=== PATIENT | female | born 1965 | race Caucasian/White ===

== ENCOUNTER 2017-11-27 18:34 | Inpatient (IN) | END 2017-11-28 11:39 | disposition home or self-care (01) | DRG 313 ==

== ENCOUNTER 2018-06-14 12:29 | Emergency (ER) | END 2018-06-14 18:11 | disposition home or self-care (01) ==

== ENCOUNTER 2018-06-28 18:05 | Emergency (ER) | payer OTHER ==
[~2018-06-28] VITALS: Ht 152.4 cm; Wt 52.3 kg
[~2018-06-28 18:05] MED LIST: AMLO5TAB4 PO; CLOP75TA27 PO; HYDR-3670 PO; INSU100I33 SC; NITR-58 PO; PANT40TA4 PO
[2018-06-28 18:23] VITALS: Ht 152.4 cm; Wt 52.3 kg
[2018-06-28] MEDS ORDERED: ONDANSETRON 4 MG INJ IV STA (21:41)
[2018-06-28] MEDS ORDERED: morphine 4 MG/ML VIAL IV STA (21:41)
[2018-06-28] MEDS ORDERED: KETOROLAC 30 MG INJ IV STA (21:58)
[2018-06-28] MEDS ORDERED: IBUP-1542 PO (22:40)
--- NOTE | 2018-06-28 22:44 | ERD ---
ER Documentation Chief Complaint Chief Complaint sob, difficulty breathing started last night HPI Patient is a 53-year-old female with stroke, hypertension, and diabetes who presents not feeling well. She has chest pain and hot flashes per the family. She is having shortness of breath. They are not sure if she had a fever at home as they did not check her temperature. She had elevated blood pressure. The symptoms started yesterday. The pain comes and goes. Upon review of old medical records this is the patient's third visit to the ER since November 27, 2017 and she did get admitted on that visit for chest pain and had a workup done. ROS All systems reviewed and are negative except as per history of present illness. Medications Home Meds Active Scripts Ibuprofen* (Motrin*) 600 Mg Tab, 600 MG PO Q6H PRN for PAIN AND OR ELEVATED TEMP, #30 TAB Prov:TEZ SALCEDO MD 06/28/18 Reported Medications Clopidogrel Bisulfate (Clopidogrel) 75 Mg Tablet, 75 MG PO DAILY, #30 TAB 11/27/17 Hydralazine Hcl* (Hydralazine Hcl*) 10 Mg Tablet, 10 MG PO DAILY, #60 TAB 11/27/17 Pantoprazole* (Pantoprazole*) 40 Mg Tablet.dr, 40 MG PO AC BREAKFAST, TAB 11/27/17 Amlodipine Besylate* (Norvasc*) 5 Mg Tablet, 5 MG PO DAILY, TAB 11/27/17 Insulin Glargine,Hum.rec.anlog (Basaglar Kwikpen U-100) 100 Unit/1 Ml Insuln.pen, 6 UNIT SC QHS, EA 11/27/17 Discontinued Scripts Nitrofurantoin Monohyd Macrocr* (Macrobid*) 100 Mg Capsr, 100 MG PO HS for 7 Days, CAP Prov:RENATA ROBERTS MD 06/14/18 Allergies Allergies: Coded Allergies: No Known Allergy (Unverified , 06/28/18) PMhx/Soc History of Surgery: Yes (EVACUATION WITH CRANIOTOMY) Hx Neurological Disorder: Yes (CVA) Hx Cardiac Disorders: Yes (HTN) Hx Psychiatric Problems: No Hx Miscellaneous Medical Probl: Yes (CVA LEFT SIDED DEFICIT ) Hx Alcohol Use: No Hx Substance Use: No Hx Tobacco Use: No Smoking Status: Never smoker FmHx Family History: diabetes Physical Exam Vitals Vital Signs Date Temp Pulse Resp B/P (MAP) Pulse Ox O2 O2 Flow FiO2 Time Delivery Rate 06/28/18 93 17 134/96 99 Room Air 23:00 (109) 06/28/18 98.8 90 18 171/100 98 18:23 (123) Physical Exam Const: Tearful Head: Atraumatic Eyes: Normal Conjunctiva ENT: Normal External Ears, Nose and Mouth. Neck: Full range of motion. No meningismus. Resp: Clear to auscultation bilaterally Cardio: Regular rate and rhythm, no murmurs Abd: Soft, non tender, non distended. Normal bowel sounds Skin: No petechiae or rashes Back: No midline or flank tenderness Ext: No cyanosis, or edema Neur: Awake and alert, weakness of the left upper extremity from previous stroke Psych: Depressed affect Result Diagram: 06/28/18219906/28/182199 Results 24 hrs Laboratory Tests Test 06/28/18 22:00 White Blood Count 4.2 10^3/ul Red Blood Count 4.66 10^6/ul Hemoglobin 13.3 g/dl Hematocrit 39.0 % Mean Corpuscular Volume 83.7 fl Mean Corpuscular Hemoglobin 28.5 pg Mean Corpuscular Hemoglobin Concent 34.1 g/dl Red Cell Distribution Width 12.4 % Platelet Count 216 10^3/UL Mean Platelet Volume 9.3 fl Immature Granulocytes % 0.000 % Neutrophils % 55.4 % Lymphocytes % 33.7 % Monocytes % 7.8 % Eosinophils % 2.6 % Basophils % 0.5 % Nucleated Red Blood Cells % 0.0 /100WBC Immature Granulocytes # 0.000 10^3/ul Neutrophils # 2.4 10^3/ul Lymphocytes # 1.4 10^3/ul Monocytes # 0.3 10^3/ul Eosinophils # 0.1 10^3/ul Basophils # 0.0 10^3/ul Nucleated Red Blood Cells # 0.0 10^3/ul Sodium Level 142 mmol/L Potassium Level 4.6 mmol/L Chloride Level 102 mmol/L Carbon Dioxide Level 27 mmol/L Anion Gap 13 Blood Urea Nitrogen 21 mg/dl Creatinine 0.62 mg/dl Est Glomerular Filtrat Rate mL/min > 60 mL/min Glucose Level 130 mg/dl Calcium Level 10.0 mg/dl Troponin I < 0.012 ng/ml Current Medications Medications Dose Sig/Colton Start Time Status Last (Trade) Ordered Route PRN Stop Time Admin Dose Reason Admin Morphine 4 mg ONCE STAT 06/28/18 DC Sulfate IV 21:41 06/28/18 (morphine) 21:58 Ondansetron 4 mg ONCE STAT 06/28/18 DC 06/28/18 HCl (Zofran IV 21:41 06/28/18 22:03 Inj) 21:42 Ketorolac 30 mg ONCE STAT 06/28/18 DC 06/28/18 Tromethamine IV 21:58 06/28/18 22:03 (Toradol) 21:59 Procedures/MDM EKG read by me: Rate/Rhythm: Regular rate and rhythm at a rate of 94 Intervals: Normal Impression: No evidence of ischemia or arrhythmia Chest X-ray 1V Interpreted by me: Soft Tissue: No acute abnormalities Bones: No acute abnormalities Mediastinum/Cardiac Silhouette/Lungs: No acute abnormalities Patient is a 53-year-old female who presents with chest pain and shortness of breath. Troponin is negative. EKG is normal. Chest x-ray is normal. At this point I doubt acute coronary syndrome, pneumonia, pneumothorax, pulmonary embolism, or aortic dissection. I believe outpatient management is appropriate but the patient will need close follow-up with her primary doctor within 24-48 hours for reevaluation. She can return sooner for any worsening symptoms. She was admitted and had a cardiac workup within the last 6 months. Departure Diagnosis: Primary Impression: Shortness of breath Additional Impression: Chest pain Chest pain type: unspecified Qualified Codes: R07.9 - Chest pain, unspecified Condition: Fair Patient Instructions: Dyspnea Referrals: Your doctor Additional Instructions: Llame al doctor MAANA y jimbo sierra MOIRA PARA DENTRO DE 1-2 GONZALEZ.Dgale a la secretaria que nosotros le instruimos hacer esta moira.Avise o llame si torres condicin se empeora antes de la moira. Regresa aqui si peor o no mejor. TEZ SALCEDO MD Jun 28, 2018 22:44
[2018-06-28 23:00] VITALS: BP 134/96; PULSE 93; RESP 17
== END 2018-06-28 23:49 | disposition home or self-care (01) ==
LOC: E/R 18:05
DX: R06.02 Shortness of breath (principal); R07.9 Chest pain, unspecified; I10 Essential (primary) hypertension; E11.9 Type 2 diabetes mellitus without complications; Z79.01 Long term (current) use of anticoagulants; Z79.4 Long term (current) use of insulin; Z86.73 Personal history of transient ischemic attack (TIA), and cerebral infarction without residual deficits
CPT/HCPCS: 36415; 71045; 80048; 84484; 85025; 93005; 96374; 96375; J1885; J2405; Z7502

== ENCOUNTER 2018-11-06 00:32 | Inpatient (IN) | payer OTHER ==
[~2018-11-06] VITALS: Ht 149.9 cm; Wt 55.4 kg
[~2018-11-06 00:32] MED LIST changes: +IBUP-1542 PO; -NITR-58 PO
[2018-11-06] MEDS ORDERED: HYDROCODONE/APAP (5/325) TAB PO ONE (01:30)
[2018-11-06] MEDS ORDERED: morphine 4 MG/ML VIAL IV STA (03:38)
[2018-11-06] MEDS ORDERED: ONDANSETRON 4 MG INJ IV STA (03:38)
--- NOTE | 2018-11-06 03:54 | ERD ---
ER Documentation Chief Complaint Chief Complaint L hip pain r/t fall,no deformity noted,took Tylenol at home at 2200 HPI Is a very pleasant 53 female suffered left hip pain status post fall from her wheelchair. No head trauma. No loss of consciousness. She took Tylenol at home for pain relief. No fevers or chills. No other current issues. Pain is mild ROS All systems reviewed and are negative except as per history of present illness. Medications Home Meds Active Scripts Ibuprofen* (Motrin*) 600 Mg Tab, 600 MG PO Q6H PRN for PAIN AND OR ELEVATED TEMP, #30 TAB Prov:TEZ SALCEDO MD 06/28/18 Reported Medications Clopidogrel Bisulfate (Clopidogrel) 75 Mg Tablet, 75 MG PO DAILY, #30 TAB 11/27/17 Hydralazine Hcl* (Hydralazine Hcl*) 10 Mg Tablet, 10 MG PO DAILY, #60 TAB 11/27/17 Pantoprazole* (Pantoprazole*) 40 Mg Tablet.dr, 40 MG PO AC BREAKFAST, TAB 11/27/17 Amlodipine Besylate* (Norvasc*) 5 Mg Tablet, 5 MG PO DAILY, TAB 11/27/17 Insulin Glargine,Hum.rec.anlog (Basaglar Kwikpen U-100) 100 Unit/1 Ml Insuln.pen, 6 UNIT SC QHS, EA 11/27/17 Allergies Allergies: Coded Allergies: No Known Allergy (Unverified , 06/28/18) PMhx/Soc History of Surgery: Yes (EVACUATION WITH CRANIOTOMY) Anesthesia Reaction: No Hx Neurological Disorder: Yes (CVA) Hx Respiratory Disorders: No Hx Cardiac Disorders: Yes (HTN) Hx Psychiatric Problems: No Hx Miscellaneous Medical Probl: Yes (CVA LEFT SIDED DEFICIT, DM ) Hx Alcohol Use: No Hx Substance Use: No Hx Tobacco Use: No Smoking Status: Never smoker Physical Exam Vitals Vital Signs Date Temp Pulse Resp B/P (MAP) Pulse Ox O2 O2 Flow FiO2 Time Delivery Rate 11/06/18 98.5 87 18 157/87 98 00:43 (110) Physical Exam Const: No acute distress Head: Atraumatic Eyes: Normal Conjunctiva ENT: Normal External Ears, Nose and Mouth. Neck: Full range of motion. No meningismus. Resp: Clear to auscultation bilaterally Cardio: Regular rate and rhythm, no murmurs Abd: Soft, non tender, non distended. Normal bowel sounds Skin: No petechiae or rashes Back: No midline or flank tenderness Ext: No cyanosis, or edema Neur: Awake and alert Psych: Normal Mood and Affect Result Diagram: 11/06/18 0309 11/06/18 0309 Results 24 hrs Laboratory Tests Test 11/06/18 03:09 White Blood Count 13.4 10^3/ul Red Blood Count 4.24 10^6/ul Hemoglobin 12.1 g/dl Hematocrit 36.1 % Mean Corpuscular Volume 85.1 fl Mean Corpuscular Hemoglobin 28.5 pg Mean Corpuscular Hemoglobin Concent 33.5 g/dl Red Cell Distribution Width 12.6 % Platelet Count 180 10^3/UL Mean Platelet Volume 10.5 fl Immature Granulocytes % 0.600 % Neutrophils % 89.4 % Lymphocytes % 5.2 % Monocytes % 4.3 % Eosinophils % 0.2 % Basophils % 0.3 % Nucleated Red Blood Cells % 0.0 /100WBC Immature Granulocytes # 0.080 10^3/ul Neutrophils # 12.0 10^3/ul Lymphocytes # 0.7 10^3/ul Monocytes # 0.6 10^3/ul Eosinophils # 0.0 10^3/ul Basophils # 0.0 10^3/ul Nucleated Red Blood Cells # 0.0 10^3/ul Prothrombin Time 12.3 Sec Prothrombin Time Ratio 1.0 INR International Normalized Ratio 0.90 Activated Partial Thromboplast Time 30.6 Sec Sodium Level 143 mmol/L Potassium Level 4.5 mmol/L Chloride Level 107 mmol/L Carbon Dioxide Level 25 mmol/L Anion Gap 11 Blood Urea Nitrogen 21 mg/dl Creatinine 0.62 mg/dl Est Glomerular Filtrat Rate mL/min > 60 mL/min Glucose Level 202 mg/dl Calcium Level 9.7 mg/dl Total Bilirubin 0.5 mg/dl Direct Bilirubin 0.00 mg/dl Indirect Bilirubin 0.5 mg/dl Aspartate Amino Transf (AST/SGOT) 85 IU/L Alanine Aminotransferase (ALT/SGPT) 120 IU/L Alkaline Phosphatase 96 IU/L Total Protein 7.6 g/dl Albumin 4.3 g/dl Globulin 3.30 g/dl Albumin/Globulin Ratio 1.30 Lipase 75 U/L Current Medications Medications Dose Sig/Colton Start Time Status Last (Trade) Ordered Route PRN Stop Time Admin Dose Reason Admin 1 tab ONCE ONCE 11/06/18 DC 11/06/18 Acetaminophen PO 01:30 01:11 / 11/06/18 01:31 Hydrocodone Bitart ([place] (5/325)) Morphine 4 mg ONCE STAT 11/06/18 DC 11/06/18 Sulfate IV 03:38 03:45 (morphine) 11/06/18 03:40 Ondansetron 4 mg ONCE STAT 11/06/18 DC 11/06/18 HCl (Zofran IV 03:38 03:45 Inj) 11/06/18 03:40 Procedures/MDM X-ray Hip 2V Interpreted by me: Bones: Intertrochanteric hip fracture Joints: [No dislocation] Foreign body: [None] Medical assessment: Patient with hip fracture. Admitted to Dr. Bard milian. Dr. Waggoner from orthopedics consulted. Departure Diagnosis: Primary Impression: Hip injury Encounter type: initial encounter Laterality: left Qualified Codes: S79.912A - Unspecified injury of left hip, initial encounter Condition: Serious SHAHLA ROJAS November 06, 2018 03:54
[2018-11-06 05:00] VITALS: BP 151/86; PULSE 102; RESP 22
[2018-11-06 05:07] VITALS: Ht 149.9 cm; Wt 55.4 kg
[2018-11-06] MEDS ORDERED: DEXTROSE 50% 50 ML SYRINGE IV PRN ×2 (05:30)
[2018-11-06] MEDS ORDERED: GLUCOSE GEL 15 GRAM TUBE BUCCAL PRN (05:30)
[2018-11-06] MEDS ORDERED: HYDROCODONE/APAP (5/325) TAB PO PRN (05:30)
[2018-11-06] MEDS ORDERED: ACETAMINOPHEN 325 MG TAB PO PRN (05:30)
[2018-11-06] MEDS ORDERED: GLUCOSE GEL 15 GRAM TUBE PO PRN ×2 (05:30)
[2018-11-06] MEDS ORDERED: GLUCAGON 1 MG INJ IM PRN (05:30)
[2018-11-06] MEDS ORDERED: SOD CHLORIDE 0.45% 1,000 ML IV SCH (05:30)
[2018-11-06] MEDS: PANTOPRAZOLE (EC) 40 MG TAB PO SCH (06:54)
[2018-11-06 07:30] VITALS: BP 158/82; PULSE 105; RESP 18
[2018-11-06] MEDS ORDERED: INSULIN ASPART [NOVOLOG] 3 ML PEN SC SCH (08:00)
[2018-11-06] MEDS ORDERED: AMLODIPINE 5 MG TAB PO SCH (09:00)
--- NOTE | 2018-11-06 10:12 | HP ---
Date/Time of Note Date/Time of Note DATE: 11/06/18 TIME: 09:48 Assessment/Plan VTE Prophylaxis SCD applied (from Nsg): Yes Pharmacological prophylaxis: NA/contraindicated Pharm contraindication: surgical contra Lines/Catheters IV Catheter Type (from Nrsg): Saline Lock Assessment/Plan Assessment/Plan - Displaced intertrochanteric fracture of the proximal left femur, mild varus angulation of fracture components. Dr. Waggoner is following in orthopedic surgery consultation. Patient is on Plavix at home which is held for now. Will obtain 2D echo. Dr. Gillespie is asked to see patient for cardiology clearance. -Leukocytosis most likely secondary to hip fracture, will obtain urinalysis to rule out urinary infection. Obtain chest x-ray. -Hypertension, continue Norvasc and hydralazine. -Diabetes mellitus type 2. Continue Lantus and NovoLog. -History of cerebrovascular accident with left-sided weakness ischemic infarct. Plavix is held, last time patient took Plavix yesterday 11/05/2018. Further recommendations based on clinical course. Plan of care discussed with Dr. Potter. Result Diagram: 11/06/18 0309 11/06/18 0309 Results 24hrs Laboratory Tests Test 11/06/18 03:09 11/06/18 08:20 White Blood Count 13.4 #H Red Blood Count 4.24 Hemoglobin 12.1 Hematocrit 36.1 L Mean Corpuscular Volume 85.1 Mean Corpuscular Hemoglobin 28.5 L Mean Corpuscular Hemoglobin Concent 33.5 Red Cell Distribution Width 12.6 Platelet Count 180 Mean Platelet Volume 10.5 H Immature Granulocytes % 0.600 H Neutrophils % 89.4 H Lymphocytes % 5.2 L Monocytes % 4.3 Eosinophils % 0.2 Basophils % 0.3 Nucleated Red Blood Cells % 0.0 Immature Granulocytes # 0.080 H Neutrophils # 12.0 H Lymphocytes # 0.7 L Monocytes # 0.6 Eosinophils # 0.0 Basophils # 0.0 Nucleated Red Blood Cells # 0.0 Prothrombin Time 12.3 Prothrombin Time Ratio 1.0 INR International Normalized Ratio 0.90 Activated Partial Thromboplast Time 30.6 Sodium Level 143 Potassium Level 4.5 Chloride Level 107 Carbon Dioxide Level 25 Anion Gap 11 Blood Urea Nitrogen 21 H Creatinine 0.62 Est Glomerular Filtrat Rate mL/min > 60 Glucose Level 202 Calcium Level 9.7 Total Bilirubin 0.5 Direct Bilirubin 0.00 Indirect Bilirubin 0.5 Aspartate Amino Transf (AST/SGOT) 85 H Alanine Aminotransferase (ALT/SGPT) 120 H Alkaline Phosphatase 96 Total Protein 7.6 Albumin 4.3 Globulin 3.30 H Albumin/Globulin Ratio 1.30 Lipase 75 Bedside Glucose 145 HPI/ROS Admit Date/Time Admit Date/Time November 06, 2018 at 03:31 Hx of Present Illness The patient is a 53-year-old female with history of cerebrovascular accident with left-sided weakness secondary to ischemic infarct and craniotomy secondary to right cerebral edema in June 2017, history of hypertension and diabetes. Patient presented to the emergency room from home due to left hip pain status post mechanical fall from the wheelchair. Left hip and left femur x-rays revealed displaced intertrochanteric fracture of the proximal left femur, mild varus angulation of fracture components. Patient denies any fever, denies any nausea vomiting diarrhea, patient denies chest pain denies shortness of breath. Patient is admitted for further evaluation and management. Patient is seen and medical surgical floor, she been evaluated by Dr. Waggoner in orthopedic surgery consultation. I spoke to patient's daughters Elaina and Dahiana at the bedside regarding patient's medical and surgical history, current condition and plan of care, all questions answered. ROS 12 point review of system is negative except for what mentioned in HPI PMH/Family/Social Past Medical History Medical History: diabetes, hypertension, other (Stroke with left-sided weakness) Medications Current Medications Diagnostic Test (Pha) (Accu-Chek) 1 ea 02 XX ; Start 11/07/18 at 02:00 Insulin Aspart (Novolog Insulin Pen) NOVOLOG *MILD* ALGORITHM WITH MEALS BEDTIME SC Last administered on 11/06/18at 09:30; Admin Dose 1 UNIT; Start 11/06/18 at 08:00 Acetaminophen (Tylenol Tab) 650 mg Q6H PRN PO MILD PAIN(1-3)OR ELEVATED TEMP; Start 11/06/18 at 05:30 Acetaminophen/ Hydrocodone Bitart ([place] (5/325)) 1 tab Q4H PRN PO MODERATE PAIN LEVEL 4-6; Start 11/06/18 at 05:30 Morphine Sulfate (morphine) 2 mg Q4H PRN IV SEVERE PAIN LEVEL 7-10; Start 11/06/18 at 05:30 Ondansetron HCl (Zofran Inj) 4 mg Q6H PRN IV NAUSEA AND/OR VOMITING; Start 11/06/18 at 05:30 Sodium Chloride 1,000 ml @ 60 mls/hr [id number] IV Last administered on 11/06/18at 06:10; Admin Dose 60 MLS/HR; Start 11/06/18 at 05:30 Amlodipine Besylate (Norvasc) 5 mg DAILY PO Last administered on 11/06/18at 09:22; Admin Dose 5 MG; Start 11/06/18 at 09:00 Hydralazine HCl (Apresoline) 10 mg DAILY PO Last administered on 11/06/18at 09:23; Admin Dose 10 MG; Start 11/06/18 at 09:00 Pantoprazole (Protonix Tab) 40 mg AC BREAKFAST PO Last administered on 11/06/18at 06:54; Admin Dose 40 MG; Start 11/06/18 at 07:00 Insulin Glargine (Lantus) 6 units HS SC ; Start 11/06/18 at 21:00 Miscellaneous Information 1 ea NOTE XX ; Start 11/06/18 at 05:30 Glucose (Glutose) 15 gm Q15M PRN PO DECREASED GLUCOSE; Start 11/06/18 at 05:30 Glucose (Glutose) 22.5 gm Q15M PRN PO DECREASED GLUCOSE; Start 11/06/18 at 05:30 Dextrose (D50w Syringe) 25 ml Q15M PRN IV DECREASED GLUCOSE; Start 11/06/18 at 05:30 Dextrose (D50w Syringe) 50 ml Q15M PRN IV DECREASED GLUCOSE; Start 11/06/18 at 05:30 Glucagon (Glucagen) 1 mg Q15M PRN IM DECREASED GLUCOSE; Start 11/06/18 at 05:30 Glucose (Glutose) 15 gm Q15M PRN BUCCAL DECREASED GLUCOSE; Start 11/06/18 at 05:30 Coded Allergies: No Known Allergy (Unverified , 11/06/18) Past Surgical History Past Surgical Hx: other (Status post craniotomy for cerebral edema due to stroke in June 2017) Family History Significant Family History: no pertinent family hx Social History Alcohol Use: none Smoking Status: Never smoker Drug Use: none Exam/Review of Systems Vital Signs Vitals Vital Signs Date Temp Pulse Resp B/P (MAP) Pulse Ox O2 O2 Flow FiO2 Time Delivery Rate 11/06/18 98.5 105 18 158/82 97 Room Air 07:30 (107) Exam Constitutional: alert, oriented Neck: supple Respiratory: clear to auscultation Cardiovascular: nl pulses Gastrointestinal: soft, non-tender Musculoskeletal: other (Left hip tenderness) Extremities: normal pulses Neurological: nl mental status, other (Left-sided weakness) Skin: nl LESLIE Marion November 06, 2018 09:59
[2018-11-06] MEDS: INSULIN ASPART [NOVOLOG] 3 ML PEN SC SCH ×3 (12:00→21:00)
--- NOTE | 2018-11-06 13:41 | CONS ---
Assessment/Plan Assessment/Plan Hospital Course (Demo Recall) 53-year-old female with significant medical history for CVA with left-sided weakness, diabetes, hypertension with a left intertrochanteric hip fracture. I discussed the treatment plans with the patient and family. I recommended surgical fixation of the left intertrochanteric hip fracture to enable mobilization as well as for pain control. I explained to the patient family that without fixation she would likely have too much pain for proper mobilization and would be in bed for many months and could develop bedsores as well as pneumonia. I reviewed the benefits and risks with the patient. These include but not limited to medical complications, stroke, cardia pulmonary complications, bleeding, infection, nonunion, malunion, hardware failure, neurovascular injury, need for removal of hardware, DVT, and need for more surgery. He understood these and wished to proceed with surgery. Plan: Plan for intramedullary nailing of left intertrochanteric hip fracture today N.p.o. Medical optimization Pain control Nonweightbearing left lower extremity DVT prophylaxis: SCDs. Postop patient will need Lovenox 40 mg daily x6 weeks Discharge planning Consultation Date/Type/Reason Admit Date/Time November 06, 2018 at 03:31 Date of Consultation: November 06, 2018 Reason for Consultation Left hip fracture Date/Time of Note DATE: 11/06/18 TIME: 13:32 Hx of Present Illness This is a 53-year-old female who presented to the emergency department early this morning after falling out of her wheelchair. She is found to have a left intertrochanteric hip fracture. Orthopedics was consulted. The patient's history is significant for a CVA in June 2017 which resulted in significant left sided weakness involving both upper and lower extremities. Secondary to that she uses a wheelchair for most activities. However with one full assist in gait aids she is able to walk a little. She also has history of hypertension and diabetes mellitus. Patient complains of left groin pain. Denies pain elsewhere. Denies any head trauma or loss of consciousness. Patient does have decreased sensation to her lower extremity which the patient states started after her stroke. Patient denies fever, chills, shortness of breath, chest pain, nausea/vomiting, constipation, diarrhea Past Medical History Medical History: diabetes, hypertension, other (Stroke with left-sided weakness) Home Meds Active Scripts Ibuprofen* (Motrin*) 600 Mg Tab, 600 MG PO Q6H PRN for PAIN AND OR ELEVATED TEMP, #30 TAB Prov:TEZ SALCEDO MD 06/28/18 Reported Medications Clopidogrel Bisulfate (Clopidogrel) 75 Mg Tablet, 75 MG PO DAILY, #30 TAB 11/27/17 Hydralazine Hcl* (Hydralazine Hcl*) 10 Mg Tablet, 10 MG PO DAILY, #60 TAB 11/27/17 Pantoprazole* (Pantoprazole*) 40 Mg Tablet.dr, 40 MG PO AC BREAKFAST, TAB 11/27/17 Amlodipine Besylate* (Norvasc*) 5 Mg Tablet, 5 MG PO DAILY, TAB 11/27/17 Insulin Glargine,Hum.rec.anlog (Basaglar Kwikpen U-100) 100 Unit/1 Ml Insuln.pen, 6 UNIT SC QHS, EA 11/27/17 Medications Current Medications Diagnostic Test (Pha) (Accu-Chek) 1 ea 02 XX ; Start 11/07/18 at 02:00 Acetaminophen (Tylenol Tab) 650 mg Q6H PRN PO MILD PAIN(1-3)OR ELEVATED TEMP; Start 11/06/18 at 05:30 Acetaminophen/ Hydrocodone Bitart ([place] (5/325)) 1 tab Q4H PRN PO MODERATE PAIN LEVEL 4-6; Start 11/06/18 at 05:30 Morphine Sulfate (morphine) 2 mg Q4H PRN IV SEVERE PAIN LEVEL 7-10; Start 11/06 at 05:30 Ondansetron HCl (Zofran Inj) 4 mg Q6H PRN IV NAUSEA AND/OR VOMITING; Start 11/06/18 at 05:30 Sodium Chloride 1,000 ml @ 60 mls/hr [id number] IV Last administered on 11/06/18at 06:10; Admin Dose 60 MLS/HR; Start 11/06/18 at 05:30 Amlodipine Besylate (Norvasc) 5 mg DAILY PO Last administered on 11/06/18at 09:22; Admin Dose 5 MG; Start 11/06/18 at 09:00 Hydralazine HCl (Apresoline) 10 mg DAILY PO Last administered on 11/06/18at 09:23; Admin Dose 10 MG; Start 11/06/18 at 09:00 Pantoprazole (Protonix Tab) 40 mg AC BREAKFAST PO Last administered on 11/06/18at 06:54; Admin Dose 40 MG; Start 11/06/18 at 07:00 Insulin Glargine (Lantus) 6 units HS SC ; Start 11/06/18 at 21:00 Miscellaneous Information 1 ea NOTE XX ; Start 11/06/18 at 05:30 Glucose (Glutose) 15 gm Q15M PRN PO DECREASED GLUCOSE; Start 11/06/18 at 05:30 Glucose (Glutose) 22.5 gm Q15M PRN PO DECREASED GLUCOSE; Start 11/06/18 at 05:30 Dextrose (D50w Syringe) 25 ml Q15M PRN IV DECREASED GLUCOSE; Start 11/06/18 at 05:30 Dextrose (D50w Syringe) 50 ml Q15M PRN IV DECREASED GLUCOSE; Start 11/06/18 at 05:30 Glucagon (Glucagen) 1 mg Q15M PRN IM DECREASED GLUCOSE; Start 11/06/18 at 05:30 Glucose (Glutose) 15 gm Q15M PRN BUCCAL DECREASED GLUCOSE; Start 11/06/18 at 05:30 Insulin Aspart (Novolog Insulin Pen) NOVOLOG *MILD* ALGORITHM WITH MEALS BEDTIME SC ; Start 11/06/18 at 12:00 Allergies: Coded Allergies: No Known Allergy (Unverified , 11/06/18) Past Surgical History Past Surgical Hx: other (Status post craniotomy for cerebral edema due to stroke in June 2017) Family History Significant Family History: no pertinent family hx Social History Alcohol Use: none Smoking Status: Never smoker Drug Use: none Exam/Review of Systems Exam Vitals Vital Signs Date Temp Pulse Resp B/P (MAP) Pulse Ox O2 O2 Flow FiO2 Time Delivery Rate 11/06/18 98.5 105 18 158/82 97 Room Air 07:30 (107) Exam General: Awake, alert, in no acute distress, pleasant and cooperative Heart: regular rhythm Lungs: breathing comfortably, no tachypnea or dyspnea MUSCULOSKELETAL: Left lower extremity: No lower extremity is shortened and externally rotated. Groin pain with logroll. There appears to be some contractures of the knee and hip. Examination of these is difficult secondary to hip fracture patient sensation to the dorsal aspect of her foot appears to be mostly intact. Sensation to the remainder of the foot is not intact to light touch which is the patient's baseline. There is no motor function of the foot and lower extremity. Dorsalis Pedis pulse +2, Brisk capillary refill. Compartments are soft. Calves non-tender to palpation bilaterally. Results Result Diagram: 11/06/18 0309 11/06/18 0309 Results 24hrs Laboratory Tests Test 11/06/18 03:09 11/06/18 08:20 11/06/18 12:51 White Blood Count 13.4 #H Red Blood Count 4.24 Hemoglobin 12.1 Hematocrit 36.1 L Mean Corpuscular Volume 85.1 Mean Corpuscular Hemoglobin 28.5 L Mean Corpuscular Hemoglobin Concent 33.5 Red Cell Distribution Width 12.6 Platelet Count 180 Mean Platelet Volume 10.5 H Immature Granulocytes % 0.600 H Neutrophils % 89.4 H Lymphocytes % 5.2 L Monocytes % 4.3 Eosinophils % 0.2 Basophils % 0.3 Nucleated Red Blood Cells % 0.0 Immature Granulocytes # 0.080 H Neutrophils # 12.0 H Lymphocytes # 0.7 L Monocytes # 0.6 Eosinophils # 0.0 Basophils # 0.0 Nucleated Red Blood Cells # 0.0 Prothrombin Time 12.3 Prothrombin Time Ratio 1.0 INR International Normalized Ratio 0.90 Activated Partial Thromboplast Time 30.6 Sodium Level 143 Potassium Level 4.5 Chloride Level 107 Carbon Dioxide Level 25 Anion Gap 11 Blood Urea Nitrogen 21 H Creatinine 0.62 Est Glomerular Filtrat Rate mL/min > 60 Glucose Level 202 Calcium Level 9.7 Total Bilirubin 0.5 Direct Bilirubin 0.00 Indirect Bilirubin 0.5 Aspartate Amino Transf (AST/SGOT) 85 H Alanine Aminotransferase (ALT/SGPT) 120 H Alkaline Phosphatase 96 Total Protein 7.6 Albumin 4.3 Globulin 3.30 H Albumin/Globulin Ratio 1.30 Lipase 75 Bedside Glucose 145 132 Imaging Imaging AP pelvis, AP lateral of the left hip and femur were reviewed. Demonstrate a comminuted intertrochanteric hip fracture. Medications Medication Current Medications Diagnostic Test (Pha) (Accu-Chek) 1 ea 02 XX ; Start 11/07/18 at 02:00 Acetaminophen (Tylenol Tab) 650 mg Q6H PRN PO MILD PAIN(1-3)OR ELEVATED TEMP; Start 11/06/18 at 05:30 Acetaminophen/ Hydrocodone Bitart ([place] (5/325)) 1 tab Q4H PRN PO MODERATE PAIN LEVEL 4-6; Start 11/06/18 at 05:30 Morphine Sulfate (morphine) 2 mg Q4H PRN IV SEVERE PAIN LEVEL 7-10; Start 11/06/18 at 05:30 Ondansetron HCl (Zofran Inj) 4 mg Q6H PRN IV NAUSEA AND/OR VOMITING; Start 11/06/18 at 05:30 Sodium Chloride 1,000 ml @ 60 mls/hr [id number] IV Last administered on 11/06/18at 06:10; Admin Dose 60 MLS/HR; Start 11/06/18 at 05:30 Amlodipine Besylate (Norvasc) 5 mg DAILY PO Last administered on 11/06/18at 09:22; Admin Dose 5 MG; Start 11/06/18 at 09:00 Hydralazine HCl (Apresoline) 10 mg DAILY PO Last administered on 11/06/18at 09:23; Admin Dose 10 MG; Start 11/06/18 at 09:00 Pantoprazole (Protonix Tab) 40 mg AC BREAKFAST PO Last administered on 11/06/18 at 06:54; Admin Dose 40 MG; Start 11/06/18 at 07:00 Insulin Glargine (Lantus) 6 units HS SC ; Start 11/06/18 at 21:00 Miscellaneous Information 1 ea NOTE XX ; Start 11/06/18 at 05:30 Glucose (Glutose) 15 gm Q15M PRN PO DECREASED GLUCOSE; Start 11/06/18 at 05:30 Glucose (Glutose) 22.5 gm Q15M PRN PO DECREASED GLUCOSE; Start 11/06/18 at 05:30 Dextrose (D50w Syringe) 25 ml Q15M PRN IV DECREASED GLUCOSE; Start 11/06/18 at 05:30 Dextrose (D50w Syringe) 50 ml Q15M PRN IV DECREASED GLUCOSE; Start 11/06/18 at 05:30 Glucagon (Glucagen) 1 mg Q15M PRN IM DECREASED GLUCOSE; Start 11/06/18 at 05:30 Glucose (Glutose) 15 gm Q15M PRN BUCCAL DECREASED GLUCOSE; Start 11/06/18 at 05:30 Insulin Aspart (Novolog Insulin Pen) NOVOLOG *MILD* ALGORITHM WITH MEALS BEDTIME SC ; Start 11/06/18 at 12:00 DANILO BLISS MD November 06, 2018 13:41
--- NOTE | 2018-11-06 14:27 | RADRPT ---
Echocardiogram Report Patient Name: ELMO WHITEPatient ID: [id number] : 1965 (53y 7m)Study Date: 11/06/2018 8:36:35 AM Gender: FAccession #: [id number] Tech: LE Location: [facility] Ref.Physician: ZAHIRA BELLO Height(Cm): BSA: Weight(Kg): Quality: GoodOrder Physician: ZAHIRA BELLO Account #: Procedures: Echocardiographic Report: Transthoracic echocardiogram with complete 2D, M-Mode, and doppler examination. Indications: Pre-op. Measurements: 2D/M Mode Doppler Measurement Value Normal Range Measurement Value Normal Range LVIDd 2D 4.0 [ 3.8 - 5.2 ] cm AV Mean Otto 0.9 [ 70.0 - 90.0 ] cm/sec LVIDs 2D 2.7 [ 2.2 - 3.5 ] cm AV Mean PG 4.0 [ 2.0 - 4.0 ] mmHg LVPWd 2D 1.1 [ 0.6 - 0.9 ] cm AV VTI 21.6 cm IVSd 2D 1.0 [ 0.6 - 0.9 ] cm LVOT Peak Otto 1.1 [ 70.0 - 110.0 ] cm/sec EDV 2D 69.6 [ 46.0 - 106.0 ] ml LVOT Peak PG 5.0 [ 2.0 - 6.0 ] mmHg ESV 2D 27.5 [ 14.0 - 42.0 ] ml MV E Peak Otto 1.1 [ 60.0 - 130.0 ] cm/sec EF 2D 60.5 [ 54.0 - 74.0 ] percent MV A Peak Otto 1.5 [ 100.0 - 120.0 ] cm/sec LVOT Diam 2.0 [ 2.1 - 2.5 ] cm MV E/A 0.7 [ 0.8 - 1.5 ] ratio MV Decel Time 137 [ 104 - 258 ] msec Lat E` Otto 0.1 [ 10.0 - 15.0 ] cm/sec Lateral E/E` 12.1 [ 1.0 - 2.0 ] ratio Med E` Otto 0.1 cm/sec MV E/A 0.7 [ 0.8 - 1.5 ] ratio TR Peak Otto 3.0 [ 100.0 - 280.0 ] cm/sec TR Peak PG 37.0 mmHg PV Peak Otto 1.0 [ 40.0 - 80.0 ] cm/sec PV Peak PG 4.0 mmHg Findings: Left Ventricle: Normal left ventricular systolic function. Normal left ventricular cavity size. Normal left ventricular wall thickness. Ejection fraction is visually estimated at 55 %. Tissue Doppler/Mitral Doppler indices are consistent with impaired relaxation (Stage I diastolic dysfunction). Right Ventricle: Normal right ventricular size. Normal right ventricular systolic function. Left Atrium: The left atrium is normal in size. Right Atrium: The right atrium is normal in size. Mitral Valve: Normal appearance of the mitral valve. Mild mitral annular calcification. There is trace to mild mitral valve regurgitation. Aortic Valve: Normal appearance of the aortic valve. No significant aortic stenosis or insufficiency. Tricuspid Valve: Normal appearance of the tricuspid valve. Estimated peak PA systolic pressure 40 mmHg. There is mild tricuspid regurgitation. Pulmonic Valve: Normal pulmonic valve appearance. Pericardium: Normal pericardium with no significant pericardial effusion. Aorta: Normal aortic root. IVC: Normal size and normal respiratory collapse consistent with normal right atrial pressure. Conclusions: Normal left ventricular systolic function. Normal left ventricular cavity size. Normal left ventricular wall thickness. Ejection fraction is visually estimated at 55 %. Tissue Doppler/Mitral Doppler indices are consistent with impaired relaxation (Stage I diastolic dysfunction). Normal appearance of the mitral valve. Mild mitral annular calcification. There is trace to mild mitral valve regurgitation. Normal appearance of the tricuspid valve. Estimated peak PA systolic pressure 40 mmHg. There is mild tricuspid regurgitation. Electronically Signed By: Isaias Gillespie 2018-11-06 14:27:05 PDT
[2018-11-06 16:18] VITALS: BP 160/89; PULSE 110; RESP 18
[2018-11-06 18:02] VITALS: PULSE 118
--- NOTE | 2018-11-06 18:14 | CONS ---
DATE OF ADMISSION: 11/06/2018 DATE OF CONSULTATION: 11/06/2018 REASON FOR CONSULTATION: Preoperative evaluation. REQUESTING PHYSICIAN: Dr. Clem Potter HISTORY OF PRESENT ILLNESS: Ms. Bailey is a 53-year-old female with a history of hypertension, diabet es mellitus, prior cerebrovascular event with left-sided weakness, mainly ambulates with the help of a walker or cane and gets around by wheelchair, who was at her home and states that she attempted to stand up and subsequently fell with pain in her left leg. Upon arrival, temperature 98.5, blood pressure 157/87, pulse 87, respiratory rate 18, satting 98%. T he patient's labs revealed a white blood cell count of 13.4, hemoglobin of 12.1 and platelet count of 180; a sodium of 143, potassium 4.5, creatinine of 0.6, BUN 21, albumin 4.3; INR of 0.9. The patien t underwent a chest x-ray revealing no evidence of acute cardiopulmonary abnormalities, a knee x-ray revealing no acute changes, a hip x-ray that revealed displaced intertrochanteric fracture of the lef t femur, a pelvic x-ray that revealed acute left intertrochanteric fracture with varus deformity. Th e patient's electrocardiogram is not in the chart for my review at this time. The patient has been a dmitted to the floor and denies chest pain or shortness of breath. PAST MEDICAL HISTORY: As above in the HPI, the patient having preserved EF by echo 11/2017. MEDICATIONS CURRENTLY IN THE HOSPITAL: 1. Lantus. 2. Norvasc 5 mg daily. 3. Hydralazine 10 mg daily. 4. Protonix. 5. Tylenol. 6. Morphine p.r.n. 7. Zofran p.r.n. 8. IV fluid hydration 60 mL/hr. ALLERGIES: NO KNOWN DRUG ALLERGIES. SOCIAL HISTORY: No current tobacco, ETOH or illicit drug use. FAMILY HISTORY: No history of sudden cardiac or early CAD. REVIEW OF SYSTEMS: As above in the HPI. CONSTITUTIONAL: No fevers or chills. PULMONARY: No current shortness of breath. CARDIOVASCULAR: No current chest pain. GASTROINTESTINAL: No vomiting. GENITOURINARY: No hematuria. MUSCULOSKELETAL: Left hip fracture. PSYCHIATRIC: No documented psych history. NEUROLOGIC: History of CVA. ENDOCRINE: History of diabetes mellitus. PHYSICAL EXAMINATION: VITAL SIGNS: Temperature of 98.5, blood pressure most recently 158/82, pulse 105, respiratory rate 1 8, satting 97%. GENERAL: The patient is alert, awake, in no acute distress. NECK: JVP approximately 8 to 9 cm of water. CHEST: Fair air movement throughout. HEART: Regular rate and rhythm. Normal S1 and S2. A I/ systolic murmur. Nondisplaced PMI. ABDOMEN: Positive bowel sounds. Soft. EXTREMITIES: No significant pitting edema, 1+ pulses bilateral posterior tibial. LABORATORY STUDIES: As above in the HPI. No further labs for my review at this time. IMAGING STUDIES: As above in the HPI. No further imaging studies for my review at this time. ELECTROCARDIOGRAMS: No electrocardiograms for my review at this time. IMPRESSION: 1. Preoperative evaluation prior to lower extremity open reduction, internal fixation for a hip frac ture. 2. Hypertension, uncontrolled. 3. Status post fall, mechanical by description. 4. Diabetes mellitus. 5. History of cerebrovascular accident. RECOMMENDATIONS: 1. At this time, we would check a baseline EKG to assess for any significant abnormalities and repea t EKG in the morning to assess for any significant changes. 2. We would complete a rule out for myocardial infarction to ensure that the patient's fall was due to mechanical problem in general and not due to any acute coronary syndrome in anticipation of upcomi ng surgery. 3. We would check a 2D echo for assessment of ejection fraction, wall motion or any major abnormalit ies. 4. We will check a fasting lipid panel for general risk stratification and initiate lipid-lowering m edication if necessary. 5. We will continue the patient's Norvasc. We will increase dose to b.i.d. 6. We would slightly increase hydralazine to at least b.i.d. as well to improve efficacy, as once-a- day dosing given half-life would not be efficacious. 7. Pain control. 8. Further recommendations pertaining to this patient's cervical cancer candidacy will be made after completion of above studies including EKG analysis, troponins and 2D echo. Thank you for allowing me to take part in the care of this patient. I will continue to follow along very closely with you, with further recommendations to be made as the patient progresses through her inpatient hospital clinical course. Dictated By: RUSS STOLL/LUANNE Conf#: [id number] DID#: [id number] CC: CLEM POTTER MD;*EndCC*
--- NOTE | 2018-11-06 18:24 | PREAC ---
Date/Time of Note Date/Time of Note DATE: 11/06/18 TIME: 18:23 Anesthesia Eval and Record Evaluation Time Pre-Procedure Interview DATE: 11/06/18 TIME: 18:23 Age 53 Sex female NPO: 8 hrs Preoperative diagnosis L hip fracture Planned procedure L hip IM nailing Past Medical History Past Medical History: Includes Cardio: HTN, Dyslipidemia Endo: Diabetes Neuro: CVA Musculoskeletal: Osteoarthritis Surgery & Anesthesia Issues No known issue Meds Anticoagulation: No Beta Gorge within 24 hr: No Reason Beta Gorge not given: Pt. not on B-Gorge Active Scripts Ibuprofen* (Motrin*) 600 Mg Tab, 600 MG PO Q6H PRN for PAIN AND OR ELEVATED TEMP, #30 TAB Prov:TEZ SALCEDO MD 06/28/18 Reported Medications Clopidogrel Bisulfate (Clopidogrel) 75 Mg Tablet, 75 MG PO DAILY, #30 TAB 11/27/17 Hydralazine Hcl* (Hydralazine Hcl*) 10 Mg Tablet, 10 MG PO DAILY, #60 TAB 11/27/17 Pantoprazole* (Pantoprazole*) 40 Mg Tablet.dr, 40 MG PO AC BREAKFAST, TAB 11/27/17 Amlodipine Besylate* (Norvasc*) 5 Mg Tablet, 5 MG PO DAILY, TAB 11/27/17 Insulin Glargine,Hum.rec.anlog (Basaglar Kwikpen U-100) 100 Unit/1 Ml Insuln.pen, 6 UNIT SC QHS, EA 11/27/17 Current Medications Diagnostic Test (Pha) (Accu-Chek) 1 ea 02 XX ; Start 11/07/18 at 02:00 Acetaminophen (Tylenol Tab) 650 mg Q6H PRN PO MILD PAIN(1-3)OR ELEVATED TEMP; Start 11/06/18 at 05:30 Acetaminophen/ Hydrocodone Bitart ([place] (5/325)) 1 tab Q4H PRN PO MODERATE PAIN LEVEL 4-6 Last administered on 11/06/18at 16:02; Admin Dose 1 TAB; Start 11/06/18 at 05:30 Morphine Sulfate (morphine) 2 mg Q4H PRN IV SEVERE PAIN LEVEL 7-10; Start 11/06/18 at 05:30 Ondansetron HCl (Zofran Inj) 4 mg Q6H PRN IV NAUSEA AND/OR VOMITING; Start 11/06/18 at 05:30 Sodium Chloride 1,000 ml @ 60 mls/hr [id number] IV Last administered on 11/06/18at 06:10; Admin Dose 60 MLS/HR; Start 11/06/18 at 05:30 Hydralazine HCl (Apresoline) 10 mg DAILY PO Last administered on 11/06/18at 09:23; Admin Dose 10 MG; Start 11/06/18 at 09:00 Pantoprazole (Protonix Tab) 40 mg AC BREAKFAST PO Last administered on 11/06/18at 06:54; Admin Dose 40 MG; Start 11/06/18 at 07:00 Insulin Glargine (Lantus) 6 units HS SC ; Start 11/06/18 at 21:00 Miscellaneous Information 1 ea NOTE XX ; Start 11/06/18 at 05:30 Glucose (Glutose) 15 gm Q15M PRN PO DECREASED GLUCOSE; Start 11/06/18 at 05:30 Glucose (Glutose) 22.5 gm Q15M PRN PO DECREASED GLUCOSE; Start 11/06/18 at 05:30 Dextrose (D50w Syringe) 25 ml Q15M PRN IV DECREASED GLUCOSE; Start 11/06/18 at 05:30 Dextrose (D50w Syringe) 50 ml Q15M PRN IV DECREASED GLUCOSE; Start 11/06/18 at 05:30 Glucagon (Glucagen) 1 mg Q15M PRN IM DECREASED GLUCOSE; Start 11/06/18 at 05:30 Glucose (Glutose) 15 gm Q15M PRN BUCCAL DECREASED GLUCOSE; Start 11/06/18 at 05:30 Insulin Aspart (Novolog Insulin Pen) NOVOLOG *MILD* ALGORITHM WITH MEALS BEDTIME SC ; Start 11/06/18 at 12:00 Amlodipine Besylate (Norvasc) 5 mg BID PO ; Start 11/06/18 at 21:00 Meds reviewed: Yes Allergies Coded Allergies: No Known Allergy (Unverified , 11/06/18) Allergies Reviewed: Yes Labs/Studies Labs Reviewed: Reviewed by anesthesiologist Result Diagram: 11/06/18 0309 11/06/18 0309 Laboratory Tests 11/06/18 03:09 test: N/A Studies: ECG Pre-procedure Exam Last vitals Vital Signs Date Temp Pulse Resp B/P (MAP) Pulse Ox O2 O2 Flow FiO2 Time Delivery Rate 11/06/18 99.1 118 97 Room Air 18:02 11/06/18 18 160/89 16:18 (112) Airway: Adequate mouth opening, Adequate thyromental dist Mallampati: Mallampati II Teeth: Normal Lung: Normal Heart: Normal ASA Physical Status ASA physical status: 3 Emergency: None Planned Anesthetic General/MAC: ETT Nerve block: Femoral (left) Pre-operative Attestations Prior to commencing anesthesia and surgery, the patient was re-evaluated, there was verification of: *The patient's identity *The results of appropriate recent lab work and preoperative vital signs *The above evaluation not changing prior to induction *Anesthetic plan, risk benefits, alternative and complications discussed with patient/family; questions answered; patient/family understands, accepts and wishes to proceed. WON BAUMANN November 06, 2018 18:24
[2018-11-06] MEDS ORDERED: FENTAnyl 50 MCG/ML VIAL ONE (18:26)
[2018-11-06] MEDS ORDERED: METOCLOPRAMIDE 10 MG INJ IV PRN (18:30)
[2018-11-06] MEDS ORDERED: HYDROmorphONE 1 MG/5 ML IV SYRINGE IV PRN ×2 (18:30)
[2018-11-06] MEDS ORDERED: ALBUTEROL 0.083% (NEB) 2.5 MG/3 ML AMP HHN PRN (18:30)
[2018-11-06] MEDS ORDERED: FENTAnyl 50 MCG/ML VIAL IV PRN ×2 (18:30)
[2018-11-06] MEDS ORDERED: DIPHENHYDRAMINE 50 MG INJ IV PRN (18:30)
[2018-11-06] MEDS ORDERED: ONDANSETRON 4 MG INJ IV PRN (18:30)
[2018-11-06 20:35] VITALS: BP 125/79; PULSE 104; RESP 18
[2018-11-06] MEDS ORDERED: INSULIN GLARGINE [LANtus] 3 ML PEN SC SCH (21:00)
--- NOTE | 2018-11-06 21:25 | QN ---
Documentation Comment The patient was medically cleared for surgery. This was done by the primary care physician at my request. Reviewed studies and labs and stated the patient was medically optimized for fixation of her left hip fracture. The patient was then transported from the floor to the preop holding area. At that time the consent was signed and the patient's left hip. Patient was brought to the operating room. Prior to transfer the patient from the hospital bed to the operating table received a phone call into the operating room stating that there was concern over the patient's clearance as there was confusion on who gave medical clearance. At this time we stopped preparing for surgery and left the patient in the hospital bed. All equipment was Sterile at this time. At this time I felt it was necessary to clarify where this confusion originated from as the patient was in fact medically cleared and stable for surgery. At no point did I feel the patient was not medically optimized for surgery. The concern at this time was confusion and a communication error involving the care for the patient. I felt it was best to pause proceeding with the planned surgery until the situation to be clarified to avoid any further errors or mistakes that could cause harm to the patient. Approximately 30 minutes were spent trying to clarify the source of confusion regarding the patient's clearance. Unfortunately at that time I was unable to confirm why it was felt the patient was not cleared for surgery. Therefore the case was canceled for tonight and postponed until the patient's medical clearance could be verified. The patient was transported back to her room on the floor after short stay in recovery. DANILO BLISS MD November 06, 2018 21:25
[2018-11-06] MEDS: INSULIN GLARGINE [LANTus] (100 UNITS/ML) SYG SC SCH (21:58)
[2018-11-06] MEDS: morphine 2 MG INJ IV PRN (22:01)
[2018-11-06] MEDS: AMLODIPINE 5 MG TAB PO SCH (22:06)
[2018-11-07] VITALS (16 sets, daily range): BP systolic 115–185; BP diastolic 76–125; PULSE 96–110; RESP 8–24
[2018-11-07] MEDS ORDERED: ACCU-CHEK XX SCH ×2 (02:00)
[2018-11-07] MEDS: DEXTROSE 5%-0.45% NACL 1,000 ML IV SCH ×2 (02:21→14:51)
[2018-11-07] MEDS: INSULIN ASPART [NOVOLOG] 3 ML PEN SC SCH ×4 (02:41→17:37)
[2018-11-07] MEDS: morphine 2 MG INJ IV PRN ×3 (02:47→14:43)
[2018-11-07] MEDS: PANTOPRAZOLE (EC) 40 MG TAB PO SCH (06:38)
[2018-11-07] MEDS ORDERED: CEFAZOLIN 1 GM INJ ONE (07:00)
[2018-11-07] MEDS: AMLODIPINE 5 MG TAB PO SCH ×2 (09:00→21:00)
--- NOTE | 2018-11-07 11:57 | PN ---
Date/Time of Note Date/Time of Note DATE: 11/07/18 TIME: 11:55 Assessment/Plan VTE Prophylaxis Risk score (from [facility])>0 risk: 8 SCD applied (from [facility]): Yes SCD contraindicated: other Pharmacological prophylaxis: other Pharm contraindication: other Lines/Catheters IV Catheter Type (from [facility] Saline Lock Urinary Cath still in place: No Assessment/Plan Assessment/Plan - Displaced intertrochanteric fracture of the proximal left femur, mild varus angulation of fracture components. Dr. Waggoner is following in orthopedic surgery consultation. Patient is on Plavix at home which is held for now. Will obtain 2D echo. Dr. Gillespie is asked to see patient for cardiology clearance. -Leukocytosis most likely secondary to hip fracture, will obtain urinalysis to rule out urinary infection. Obtain chest x-ray. -Hypertension, continue Norvasc and hydralazine. -Diabetes mellitus type 2. Continue Lantus and NovoLog. -History of cerebrovascular accident with left-sided weakness ischemic infarct. Plavix is held, last time patient took Plavix yesterday 11/05/2018. Further recommendations based on clinical course. Plan of care discussed with Jud Potter. Result Diagram: 11/07/18 0529 11/07/1829 Results 24hrs Laboratory Tests Test 11/06/18 12:51 11/06/18 13:00 11/06/18 18:12 11/06/18 21:55 Bedside Glucose 132 138 167 Urine Color STRAW Urine Clarity CLEAR Urine pH 7.0 Urine Specific 1.015 [place] Urine Ketones NEGATIVE Urine Nitrite NEGATIVE Urine Bilirubin NEGATIVE Urine Urobilinogen NEGATIVE Urine Leukocyte NEGATIVE Esterase Urine Hemoglobin NEGATIVE Urine Glucose NEGATIVE Urine Total Protein NEGATIVE Urine Test NEGATIVE Test 11/06/18 22:50 11/07/18 02:18 11/07/18 05:29 11/07/18 06:32 Troponin I < 0.012 < 0.012 Bedside Glucose 165 168 White Blood Count 6.6 # Red Blood Count 4.12 L Hemoglobin 11.6 L Hematocrit 34.6 L Mean Corpuscular 84.0 Volume Mean Corpuscular 28.2 L Hemoglobin Mean Corpuscular 33.5 Hemoglobin Concent Red Cell 12.4 Distribution Width Platelet Count 124 #L Mean Platelet Volume 10.4 Immature 0.500 H Granulocytes % Neutrophils % 78.8 H Lymphocytes % 12.2 L Monocytes % 7.1 Eosinophils % 1.2 Basophils % 0.2 Nucleated Red Blood 0.0 Cells % Immature 0.030 Granulocytes # Neutrophils # 5.2 Lymphocytes # 0.8 Monocytes # 0.5 Eosinophils # 0.1 Basophils # 0.0 Nucleated Red Blood 0.0 Cells # Sodium Level 138 Potassium Level 4.1 Chloride Level 105 Carbon Dioxide Level 27 Anion Gap 6 Blood Urea Nitrogen 14 Creatinine 0.54 Est Glomerular > 60 Filtrat Rate mL/min Glucose Level 180 Hemoglobin A1c 6.4 H Calcium Level 9.4 Subjective 24 Hr Interval Summary Free Text/Dictation Scheduled for hip sx - awaiting cardiac clearance - Patient's daughter at bed side- all Qs answered. - dw satff Eyes: no complaints ENT: no complaints Respiratory: no complaints Cardiovascular: no complaints Gastrointestinal: no complaints Genitourinary: no complaints Musculoskeletal: bone/joint pain, restricted range of motion Skin: no complaints Neurologic: no complaints Endocrine: no complaints Lymphatic: no complaints Psychological: no complaints Immunologic: no complaints Exam/Review of Systems Exam Vitals Vital Signs Date Temp Pulse Resp B/P (MAP) Pulse Ox O2 O2 Flow FiO2 Time Delivery Rate 11/07/18 99.2 99 18 139/88 95 07:26 (105) 11/06/18 Room Air 18:02 Intake and Output 11/06/18 11/06/18 11/07/18 1515:00 23:00 07:00 IntakeIntake Total 180 ml 600 ml 235 ml BalanceBalance 180 ml 600 ml 235 ml Constitutional: alert, well developed Psych: nl mood/affect Eyes: nl lids, nl sclera ENMT: nl external ears & nose Neck: non-tender Respiratory: clear to auscultation Cardiovascular: nl pulses, other (s1s2) Gastrointestinal: soft, non-tender Musculoskeletal: joint tenderness, range of motion Extremities: normal pulses Neurological: nl speech Skin: nl turgor Lymph: nontender Results Results 24hrs Laboratory Tests Test 11/06/18 12:51 11/06/18 13:00 11/06/18 18:12 11/06/18 21:55 Bedside Glucose 132 138 167 Urine Color STRAW Urine Clarity CLEAR Urine pH 7.0 Urine Specific 1.015 [place] Urine Ketones NEGATIVE Urine Nitrite NEGATIVE Urine Bilirubin NEGATIVE Urine Urobilinogen NEGATIVE Urine Leukocyte NEGATIVE Esterase Urine Hemoglobin NEGATIVE Urine Glucose NEGATIVE Urine Total Protein NEGATIVE Urine Test NEGATIVE Test 11/06/18 22:50 11/07/18 02:18 11/07/18 05:29 11/07/18 06:32 Troponin I < 0.012 < 0.012 Bedside Glucose 165 168 White Blood Count 6.6 # Red Blood Count 4.12 L Hemoglobin 11.6 L Hematocrit 34.6 L Mean Corpuscular 84.0 Volume Mean Corpuscular 28.2 L Hemoglobin Mean Corpuscular 33.5 Hemoglobin Concent Red Cell 12.4 Distribution Width Platelet Count 124 #L Mean Platelet Volume 10.4 Immature 0.500 H Granulocytes % Neutrophils % 78.8 H Lymphocytes % 12.2 L Monocytes % 7.1 Eosinophils % 1.2 Basophils % 0.2 Nucleated Red Blood 0.0 Cells % Immature 0.030 Granulocytes # Neutrophils # 5.2 Lymphocytes # 0.8 Monocytes # 0.5 Eosinophils # 0.1 Basophils # 0.0 Nucleated Red Blood 0.0 Cells # Sodium Level 138 Potassium Level 4.1 Chloride Level 105 Carbon Dioxide Level 27 Anion Gap 6 Blood Urea Nitrogen 14 Creatinine 0.54 Est Glomerular > 60 Filtrat Rate mL/min Glucose Level 180 Hemoglobin A1c 6.4 H Calcium Level 9.4 Medications Medication Current Medications Acetaminophen (Tylenol Tab) 650 mg Q6H PRN PO MILD PAIN(1-3)OR ELEVATED TEMP; Start 11/06/18 at 05:30 Acetaminophen/ Hydrocodone Bitart ([place] (5/325)) 1 tab Q4H PRN PO MODERATE PAIN LEVEL 4-6 Last administered on 11/06/18at 16:02; Admin Dose 1 TAB; Start 11/06/18 at 05:30 Morphine Sulfate (morphine) 2 mg Q4H PRN IV SEVERE PAIN LEVEL 7-10 Last administered on 11/07/18at 09:51; Admin Dose 2 MG; Start 11/06/18 at 05:30 Ondansetron HCl (Zofran Inj) 4 mg Q6H PRN IV NAUSEA AND/OR VOMITING; Start 11/06/18 at 05:30 Hydralazine HCl (Apresoline) 10 mg DAILY PO Last administered on 11/06/18at 09:23; Admin Dose 10 MG; Start 11/06/18 at 09:00 Pantoprazole (Protonix Tab) 40 mg AC BREAKFAST PO Last administered on 11/06/18at 06:54; Admin Dose 40 MG; Start 11/06/18 at 07:00 Insulin Glargine (Lantus) 6 units HS SC Last administered on 11/06/18at 21:58; Admin Dose 6 UNITS; Start 11/06/18 at 21:00 Miscellaneous Information 1 ea NOTE XX ; Start 11/06/18 at 05:30 Glucose (Glutose) 15 gm Q15M PRN PO DECREASED GLUCOSE; Start 11/06/18 at 05:30 Glucose (Glutose) 22.5 gm Q15M PRN PO DECREASED GLUCOSE; Start 11/06/18 at 05:30 Dextrose (D50w Syringe) 25 ml Q15M PRN IV DECREASED GLUCOSE; Start 11/06/18 at 05:30 Dextrose (D50w Syringe) 50 ml Q15M PRN IV DECREASED GLUCOSE; Start 11/06/18 at 05:30 Glucagon (Glucagen) 1 mg Q15M PRN IM DECREASED GLUCOSE; Start 11/06/18 at 05:30 Glucose (Glutose) 15 gm Q15M PRN BUCCAL DECREASED GLUCOSE; Start 11/06/18 at 05:30 Amlodipine Besylate (Norvasc) 5 mg BID PO Last administered on 11/06/18at 22:06; Admin Dose 5 MG; Start 11/06/18 at 21:00 Dextrose/Sodium Chloride 1,000 ml @ 75 mls/hr [id number] IV Last administered on 11/07/18at 02:21; Admin Dose 75 MLS/HR; Start 11/07/18 at 01:30 Insulin Aspart (Novolog Insulin Pen) NOVOLOG *MILD* ALGORI... Q6 SC Last administered on 11/07/18at 06:37; Admin Dose 1 UNIT; Start 11/07/18 at 01:30 EVELIA ALFONSO November 07, 2018 11:57
--- NOTE | 2018-11-07 12:44 | RADRPT ---
Vent Rate: 111 bpm RR Interval: 0 msec [place] Interval: 142 msec QRS Duration: 74 msec QT Interval: 346 msec QTC Interval: 470 msec P-R-T [place]: 56 - 45 - 83 degrees Sinus tachycardia Otherwise normal ECG Electronically Signed By: Benjamin Gallagher
--- NOTE | 2018-11-07 12:47 | RADRPT ---
Vent Rate: 96 bpm RR Interval: 628 msec SC Interval: 146 msec QRS Duration: 79 msec QT Interval: 340 msec QTC Interval: 429 msec P-R-T [place]: 43 - 45 - 77 degrees Sinus rhythm...normal P axis, V-rate 50- 99 Electronically Signed By: Benjamin Gallagher
--- NOTE | 2018-11-07 14:17 | CONS ---
Assessment/Plan Assessment/Plan Hospital Course (Demo Recall) IMPRESSION: 1. Preoperative evaluation prior to lower extremity open reduction, internal fixation for a hip fracture.-no cp/sob. Neg trop x 2/Echo with NL EF and no sig valve abnl. 2. Hypertension-improved control on increased dose of norvasc 3. Status post fall, mechanical by description. 4. Diabetes mellitus. 5. History of cerebrovascular accident. Recc: -Patient is without cardiac contraindication and is thus able to proceed to OR at this time at overall moderate CV risk. Post-operatively would watch closely for CV complications including but not limited to the onset of chest p ain/sob/development of CHF or uncontrolled cardiac arrythmias. Additionally post-operatively would check a 12 lead ecg. -Continue baseline norvasc and hydralazine(which I will increase to BID given 1/ 2 life of medication) -pain control -Follow Blood sugars closely -check AM fasting lipid panel for general risk Consultation Date/Type/Reason Admit Date/Time November 06, 2018 at 03:31 Initial Consult Date 11/06/18 Type of Consult Cardiology Reason for Consultation preop Requesting Provider: ZAHIRA BELLO MD Date/Time of Note DATE: 11/07/18 TIME: 14:09 Exam/Review of Systems Vital Signs Vitals Vital Signs Date Temp Pulse Resp B/P (MAP) Pulse Ox O2 O2 Flow FiO2 Time Delivery Rate 11/07/18 99.2 99 18 139/88 95 07:26 (105) 11/06/18 Room Air 18:02 Intake and Output 11/06/18 11/06/18 11/07/18 1414:59 22:59 06:59 IntakeIntake Total 180 ml 600 ml 235 ml BalanceBalance 180 ml 600 ml 235 ml Exam Exam Review of Systems: CONSTITUTIONAL: No fevers, chills. PULMONARY: No sob CARDIOVASCULAR: No chest pain/palpitations GASTROINTESTINAL: No nausea/vomiting. GENITOURINARY: No hematuria/dysuria. MUSCULOSKELETAL:pain in leg PSYCHIATRIC: The patient denies depression. NEUROLOGIC: No weakness Constitutional: alert Psych: no complaints Head: normocephalic ENMT: mucosa pink and moist Neck: supple, jvd (8 cm water) Respiratory: clear to auscultation Cardiovascular: regular rate and rhythm Gastrointestinal: soft, non-tender Musculoskeletal: muscle tone (normal) Extremities: edema (none) Neurological: other (No focal deficits) Labs Result Diagram: 11/07/18 0529 11/07/18 0529 Results 24hrs Laboratory Tests Test 11/06/18 18:12 11/06/18 21:55 11/06/18 22:50 11/07/18 02:18 Bedside Glucose 138 167 165 Troponin I < 0.012 Test 11/07/18 05:29 11/07/18 06:32 11/07/18 12:43 White Blood Count 6.6 # Red Blood Count 4.12 L Hemoglobin 11.6 L Hematocrit 34.6 L Mean Corpuscular 84.0 Volume Mean Corpuscular 28.2 L Hemoglobin Mean Corpuscular 33.5 Hemoglobin Concent Red Cell 12.4 Distribution Width Platelet Count 124 #L Mean Platelet Volume 10.4 Immature 0.500 H Granulocytes % Neutrophils % 78.8 H Lymphocytes % 12.2 L Monocytes % 7.1 Eosinophils % 1.2 Basophils % 0.2 Nucleated Red Blood 0.0 Cells % Immature 0.030 Granulocytes # Neutrophils # 5.2 Lymphocytes # 0.8 Monocytes # 0.5 Eosinophils # 0.1 Basophils # 0.0 Nucleated Red Blood 0.0 Cells # Sodium Level 138 Potassium Level 4.1 Chloride Level 105 Carbon Dioxide Level 27 Anion Gap 6 Blood Urea Nitrogen 14 Creatinine 0.54 Est Glomerular > 60 Filtrat Rate mL/min Glucose Level 180 Hemoglobin A1c 6.4 H Calcium Level 9.4 Troponin I < 0.012 Bedside Glucose 168 149 Medications Medications Current Medications Acetaminophen (Tylenol Tab) 650 mg Q6H PRN PO MILD PAIN(1-3)OR ELEVATED TEMP; Start 11/06/18 at 05:30 Acetaminophen/ Hydrocodone Bitart ([place] (5/325)) 1 tab Q4H PRN PO MODERATE PAIN LEVEL 4-6 Last administered on 11/06/18at 16:02; Admin Dose 1 TAB; Start 11/06/18 at 05:30 Morphine Sulfate (morphine) 2 mg Q4H PRN IV SEVERE PAIN LEVEL 7-10 Last administered on 11/07/18at 09:51; Admin Dose 2 MG; Start 11/06/18 at 05:30 Ondansetron HCl (Zofran Inj) 4 mg Q6H PRN IV NAUSEA AND/OR VOMITING; Start 11/06/18 at 05:30 Hydralazine HCl (Apresoline) 10 mg DAILY PO Last administered on 11/06/18at 09:23; Admin Dose 10 MG; Start 11/06/18 at 09:00 Pantoprazole (Protonix Tab) 40 mg AC BREAKFAST PO Last administered on 11/06/18at 06:54; Admin Dose 40 MG; Start 11/06/18 at 07:00 Insulin Glargine (Lantus) 6 units HS SC Last administered on 11/06/18at 21:58; Admin Dose 6 UNITS; Start 11/06/18 at 21:00 Miscellaneous Information 1 ea NOTE XX ; Start 11/06/18 at 05:30 Glucose (Glutose) 15 gm Q15M PRN PO DECREASED GLUCOSE; Start 11/06/18 at 05:30 Glucose (Glutose) 22.5 gm Q15M PRN PO DECREASED GLUCOSE; Start 11/06/18 at 05:30 Dextrose (D50w Syringe) 25 ml Q15M PRN IV DECREASED GLUCOSE; Start 11/06/18 at 05:30 Dextrose (D50w Syringe) 50 ml Q15M PRN IV DECREASED GLUCOSE; Start 11/06/18 at 05:30 Glucagon (Glucagen) 1 mg Q15M PRN IM DECREASED GLUCOSE; Start 11/06/18 at 05:30 Glucose (Glutose) 15 gm Q15M PRN BUCCAL DECREASED GLUCOSE; Start 11/06/18 at 05:30 Amlodipine Besylate (Norvasc) 5 mg BID PO Last administered on 11/06/18at 22:06; Admin Dose 5 MG; Start 11/06/18 at 21:00 Dextrose/Sodium Chloride 1,000 ml @ 75 mls/hr [id number] IV Last administered on 11/07/18at 02:21; Admin Dose 75 MLS/HR; Start 11/07/18 at 01:30 Insulin Aspart (Novolog Insulin Pen) NOVOLOG *MILD* ALGORI... Q6 SC Last administered on 11/07/18at 12:48; Admin Dose 1 UNIT; Start 11/07/18 at 01:30 RUSS PEPE November 07, 2018 14:17
--- NOTE | 2018-11-07 18:58 | HPN ---
Date/Time of Note Date/Time of Note DATE: 11/07/18 TIME: 18:58 Interval H&P Admission Note Pt. seen H&P reviewed: No system changes Left lower extremity: No lower extremity is shortened and externally rotated. Groin pain with logroll. There appears to be some contractures of the knee and hip. Examination of these is difficult secondary to hip fracture patient sensation to the dorsal aspect of her foot appears to be mostly intact. Sensation to the remainder of the foot is not intact to light touch which is the patient's baseline. There is no motor function of the foot and lower extremity. Dorsalis Pedis pulse +2, Brisk capillary refill. Compartments are soft. Calves non-tender to palpation bilaterally. DANLIO BLISS MD November 07, 2018 18:58
--- NOTE | 2018-11-07 19:18 | PREAC ---
Date/Time of Note Date/Time of Note DATE: 11/07/18 TIME: 19:15 Anesthesia Eval and Record Evaluation Time Pre-Procedure Interview DATE: 11/07/18 TIME: 19:15 Age 53 Sex female NPO: 8 hrs Preoperative diagnosis hip fracture left Planned procedure im nailing left Past Medical History Past Medical History: Includes Cardio: HTN Endo: Diabetes Neuro: CVA, Other (left arm weak) Surgery & Anesthesia Issues No known issue Meds Anticoagulation: Yes Beta Gorge within 24 hr: No Reason Beta Gorge not given: Pt. not on B-Gorge Active Scripts Ibuprofen* (Motrin*) 600 Mg Tab, 600 MG PO Q6H PRN for PAIN AND OR ELEVATED TEMP, #30 TAB Prov:TEZ SALCEDO MD 06/28/18 Reported Medications Clopidogrel Bisulfate (Clopidogrel) 75 Mg Tablet, 75 MG PO DAILY, #30 TAB 11/27/17 Hydralazine Hcl* (Hydralazine Hcl*) 10 Mg Tablet, 10 MG PO DAILY, #60 TAB 11/27/17 Pantoprazole* (Pantoprazole*) 40 Mg Tablet.dr, 40 MG PO AC BREAKFAST, TAB 11/27/17 Amlodipine Besylate* (Norvasc*) 5 Mg Tablet, 5 MG PO DAILY, TAB 11/27/17 Insulin Glargine,Hum.rec.anlog (Basaglar Kwikpen U-100) 100 Unit/1 Ml Insuln.pen, 6 UNIT SC QHS, EA 11/27/17 Current Medications Acetaminophen (Tylenol Tab) 650 mg Q6H PRN PO MILD PAIN(1-3)OR ELEVATED TEMP; Start 11/06/18 at 05:30 Acetaminophen/ Hydrocodone Bitart ([place] (5/325)) 1 tab Q4H PRN PO MODERATE PAIN LEVEL 4-6 Last administered on 11/06/18at 16:02; Admin Dose 1 TAB; Start 11/06/18 at 05:30 Morphine Sulfate (morphine) 2 mg Q4H PRN IV SEVERE PAIN LEVEL 7-10 Last administered on 11/07/18at 14:43; Admin Dose 2 MG; Start 11/06/18 at 05:30 Ondansetron HCl (Zofran Inj) 4 mg Q6H PRN IV NAUSEA AND/OR VOMITING; Start 11/06/18 at 05:30 Pantoprazole (Protonix Tab) 40 mg AC BREAKFAST PO Last administered on 11/06/18at 06:54; Admin Dose 40 MG; Start 11/06/18 at 07:00 Insulin Glargine (Lantus) 6 units HS SC Last administered on 11/06/18at 21:58; Admin Dose 6 UNITS; Start 11/06/18 at 21:00 Miscellaneous Information 1 ea NOTE XX ; Start 11/06/18 at 05:30 Glucose (Glutose) 15 gm Q15M PRN PO DECREASED GLUCOSE; Start 11/06/18 at 05:30 Glucose (Glutose) 22.5 gm Q15M PRN PO DECREASED GLUCOSE; Start 11/06/18 at 05:30 Dextrose (D50w Syringe) 25 ml Q15M PRN IV DECREASED GLUCOSE; Start 11/06/18 at 05:30 Dextrose (D50w Syringe) 50 ml Q15M PRN IV DECREASED GLUCOSE; Start 11/06/18 at 05:30 Glucagon (Glucagen) 1 mg Q15M PRN IM DECREASED GLUCOSE; Start 11/06/18 at 05:30 Glucose (Glutose) 15 gm Q15M PRN BUCCAL DECREASED GLUCOSE; Start 11/06/18 at 05:30 Amlodipine Besylate (Norvasc) 5 mg BID PO Last administered on 11/06/18at 22:06; Admin Dose 5 MG; Start 11/06/18 at 21:00 Dextrose/Sodium Chloride 1,000 ml @ 75 mls/hr [id number] IV Last administered on 11/07/18at 14:51; Admin Dose 75 MLS/HR; Start 11/07/18 at 01:30 Insulin Aspart (Novolog Insulin Pen) NOVOLOG *MILD* ALG[place]I... Q6 SC Last administered on 11/07/18at 17:37; Admin Dose 1 UNIT; Start 11/07/18 at 01:30 Hydralazine HCl (Apresoline) 25 mg BID PO ; Start 11/07/18 at 21:00 Meds reviewed: Yes Allergies Coded Allergies: No Known Allergy (Unverified , 11/06/18) Allergies Reviewed: No Labs/Studies Labs Reviewed: Reviewed by anesthesiologist Result Diagram: 11/07/1852811/07/18528 Laboratory Tests 11/07/18 05:29 test: Negative Pre-procedure Exam Last vitals Vital Signs Date Temp Pulse Resp B/P (MAP) Pulse Ox O2 O2 Flow FiO2 Time Delivery Rate 11/07/18 98.9 96 18 159/84 95 Room Air 14:24 (109) Airway: Adequate mouth opening Mallampati: Mallampati II Teeth: Normal Lung: Normal Heart: Normal ASA Physical Status ASA physical status: 4 Emergency: E Planned Anesthetic General/MAC: ETT Pre-operative Attestations Prior to commencing anesthesia and surgery, the patient was re-evaluated, there was verification of: *The patient's identity *The results of appropriate recent lab work and preoperative vital signs *The above evaluation not changing prior to induction *Anesthetic plan, risk benefits, alternative and complications discussed with patient/family; questions answered; patient/family understands, accepts and wishes to proceed. LIZZ LOERA MD November 07, 2018 19:18
[2018-11-07] MEDS ORDERED: ETOMIDATE 20 MG INJ ONE (19:28)
[2018-11-07] MEDS ORDERED: ROCURONIUM 50 MG INJ ONE (19:28)
[2018-11-07] MEDS ORDERED: HYDROmorphONE 2 MG/ML SYG ONE (19:29)
[2018-11-07] MEDS ORDERED: POLYMYXIN/BACITRACIN 1L IRRIG ONE (19:54)
[2018-11-07] MEDS ORDERED: HYDROmorphONE 1 MG/5 ML IV SYRINGE IV PRN (20:00)
[2018-11-07] MEDS ORDERED: MEPERIDINE 25 MG INJ IV PRN (20:00)
[2018-11-07] MEDS ORDERED: LABETALOL HCL 20MG INJ IV PRN (20:00)
[2018-11-07] MEDS ORDERED: ONDANSETRON 4 MG INJ IV PRN (20:00)
[2018-11-07] MEDS ORDERED: hydrALAzine 20 MG INJ IV PRN (20:00)
[2018-11-07] MEDS ORDERED: DEXAMETHASONE 4 MG/ML 5 ML INJ ONE (20:12)
[2018-11-07] MEDS ORDERED: ONDANSETRON 4 MG INJ ONE (20:12)
[2018-11-07] MEDS ORDERED: SUGAMMADEX SODIUM 200 MG/2 ML VIAL IV ONE (21:59)
[2018-11-07] MEDS ORDERED: LACTATED RINGER'S 1,000 ML IV SCH (22:19)
[2018-11-07] MEDS: HYDROmorphONE 1 MG/5 ML IV SYRINGE IV PRN ×3 (22:22→22:34)
[2018-11-07] MEDS ORDERED: oxyCODONE 5 MG TAB PO PRN (22:30)
[2018-11-07] MEDS ORDERED: NALOXONE (0.4 MG/ML) INJ IV PRN (22:30)
[2018-11-07] MEDS ORDERED: CEFAZOLIN 2 GM/50 ML (PMX) 50 ML IVPB SCH (22:30)
[2018-11-07] MEDS ORDERED: DIPHENHYDRAMINE 50 MG INJ IV PRN (22:30)
[2018-11-07] MEDS ORDERED: BISACODYL 10 MG SUPP PR PRN (22:30)
[2018-11-07] MEDS ORDERED: NA PHOSPHATE/BIPHOS 133 ML ENEMA PR PRN (22:30)
[2018-11-07] MEDS ORDERED: DOCUSATE SODIUM 100 MG CAP PO ONE (22:30)
--- NOTE | 2018-11-07 22:35 | PAC ---
Date/Time of Note Date/Time of Note DATE: 11/07/18 TIME: 22:35 Post-Anesthesia Notes Post-Anesthesia Note Last documented vital signs Vital Signs Date Temp Pulse Resp B/P (MAP) Pulse Ox O2 O2 Flow FiO2 Time Delivery Rate 11/07/18 98.0 22:20 11/07/18 96 18 159/84 95 Room Air 14:24 (109) Activity: WNL Respiratory function: WNL Cardiovascular function: WNL Mental status: Baseline Pain reasonably controlled: Yes Hydration appropriate: Yes Nausea/Vomiting absent: Yes LIZZ LOERA MD November 07, 2018 22:35
--- NOTE | 2018-11-07 22:41 | OPR ---
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 Orthopedics was consulted. The patient has a medical history significant for a stroke in 2018, diabetes, hypertension. The stroke resulted in significant weakness in the left upper and left lower extremity. She is able to walk a little bit with a walker and another person for assistance. Preoperative clearance process was begun. I discussed treatment options with the patient. I recommended surgical treatment as nonoperative treatment would leave the patient bed bound. I reviewed the benefits and risks. The risks include but not limited to medical complications, cardiopulmonary complications, anesthetic complications, bleeding, infection, nonunion, malunion, hardware failure, continued pain, need for further surgery, need for removal of hardware, neurovascular injury. The patient understood these benefits and risks and wished to proceed with surgery. Procedure in detail: Patient was brought to the operating room. The patient was given a general anesthetic and placed in supine position on the [place] table. All bony prominences were well-padded. Patient was appropriately positioned and put in traction on the left lower extremity. At this time fluoroscopy was used to confirm positioning as well as reduction of left intertrochanteric hip fracture. At this time the left lower extremity was prepped and draped in normal sterile fashion. A timeout was performed confirming the patient's name, medical record number, diagnosis, procedure performed, and laterality procedure. 2 g of Ancef was dosed. Fluoroscopy was used to localize the tip of greater trochanter and obtain the longitudinal axis of the femur. A #10 blade was used to make a skin incision several centimeters proximal and posterior to the tip of the greater trochanter. IT band was sharply incised. Tip of the greater trochanter could be palpated. The guidepin was then placed on the tip of the greater trochanter. Placement was confirmed on both AP and lateral fluoroscopy. The pin was then driven down with a wire bus driver/monitor just past the lesser trochanter. Soft tissue guide was placed over the guidepin followed by the opening reamer. This was then removed. A ball-tipped guidewire with a bend was placed into the opening hole. The gu marin wire was confirmed to be in the femur on both AP and lateral films. It was placed in the center of the femur distally in both the AP and lateral planes. This was measured at approximately 360 mm, a 340 mm length nail was chosen. The canal was quite capacious began reaming with a 9 mm reamer and sequentially reamed up to a 12 mm reamer where there was appropriate chatter at the isthmus. Therefore a 10 x 340 mm nail with 125 degree angle was chosen. This was then placed over the guidewire until the proper depth was obtained in the guidewire was then pulled out. A small 2 cm incision was made over the location of the future lag screw. The lag screw sleeve was placed through the jig and a guidepin was placed center center in the femoral head which was confirmed on both AP and lateral fluoroscopy. The pin was driven to the subchondral bone. This measured 80 mm. Therefore reamed to 85 mm and placed 85 mm screw. The set screw was then tightened all the way down. The screw was center center in the femoral head on both AP and lateral films. Our attention turned distally where the distal interlocking guide was used. The static interlocking screw holes were used. Appropriate drill was used to drill through these holes using perfect standing rock technique followed by the appropriate length screws. All jigs and hardware was removed and final x-rays were obtained confirming good reduc tion of the fracture and positioning placement of the hardware. At this time all wounds were closely irrigated. The IT band was closed with #1 Vicryl in [id number] fashion followed by subcutaneous closure and catherine for the skin. The lag screw and interlocking screw incisions were closed with 2-0 Vicryl and skin for catherine. The dressings were covered with Mepilex dressing. All counts were correct x2 Disposition: Patient was awoken from anesthesia and transferred back in stable condition. Patient will be weight-bear as tolerated in the left lower extremity. Will receive Ancef 2 g for 24 hours postop. The patient will be on DVT prophylaxis, the patient currently takes Plavix. DVT prophylaxis will be discussed with primary team to determine if Lovenox Lovenox 40mg daily x6 weeks can replace Plavix for the time being. She will also have SCDs while admitted. I would li ke to see the patient in clinic in 2 weeks. Implants Yadee gamma cephalo-medullary nail size 10 x 340, 125 degree angle 85 mm lag screw 1 static distal interlocking screws DANILO BLISS MD November 07, 2018 22:41
[2018-11-08] VITALS (11 sets, daily range): BP systolic 126–162; BP diastolic 75–91; PULSE 96–114; RESP 18–20
[2018-11-08] MEDS: INSULIN ASPART [NOVOLOG] 3 ML PEN SC SCH ×4 (00:25→17:55)
[2018-11-08] MEDS: INSULIN GLARGINE [LANTus] (100 UNITS/ML) SYG SC SCH ×2 (00:36→20:35)
[2018-11-08] MEDS: CEFAZOLIN 2 GM/50 ML (PMX) 50 ML IVPB SCH ×3 (04:18→20:16)
[2018-11-08] MEDS: ACETAMINOPHEN 500 MG TAB PO SCH ×3 (05:41→20:23)
[2018-11-08] MEDS ORDERED: PANTOPRAZOLE (EC) 40 MG TAB PO SCH (06:00)
[2018-11-08] MEDS: DOCUSATE SODIUM 100 MG CAP PO SCH ×2 (08:53→20:17)
[2018-11-08] MEDS: PANTOPRAZOLE (EC) 40 MG TAB PO SCH (08:54)
[2018-11-08] MEDS: AMLODIPINE 5 MG TAB PO SCH ×2 (08:56→20:18)
--- NOTE | 2018-11-08 11:28 | PN ---
Date/Time of Note Date/Time of Note DATE: 11/08/18 TIME: 11:27 Assessment/Plan VTE Prophylaxis Risk score (from Ns)>0 risk: 2 SCD applied (from Ns): Yes Pharmacological prophylaxis: LMWH Lines/Catheters IV [facility]ter Type (from [facility]): Peripheral IV Urinary Cath still in place: No Assessment/Plan Hospital Course - Displaced intertrochanteric fracture of the proximal left femur, mild varus angulation of fracture components. Dr. Waggoner is following in orthopedic surgery consultation. Patient is on Plavix at home which is held for now. Will obtain 2D echo. Dr. Gillespie is asked to see patient for cardiology clearance. -Leukocytosis most likely secondary to hip fracture, will obtain urinalysis to rule out urinary infection. Obtain chest x-ray. -Hypertension, continue Norvasc and hydralazine. -Diabetes mellitus type 2. Continue Lantus and NovoLog. -History of cerebrovascular accident with left-sided weakness ischemic infarct. Plavix is held, last time patient took Plavix yesterday 11/05/2018. Result Diagram: 11/08/18 0738 11/08/18 0738 Results 24hrs Laboratory Tests Test 11/07/18 12:43 11/07/18 17:34 11/07/18 19:08 11/07/18 22:57 Bedside Glucose 149 144 129 212 Test 11/08/18 00:23 11/08/18 05:36 11/08/18 07:38 Bedside Glucose 217 202 White Blood Count 8.4 # Red Blood Count 4.04 L Hemoglobin 11.4 L Hematocrit 33.7 L Mean Corpuscular 83.4 Volume Mean Corpuscular 28.2 L Hemoglobin Mean Corpuscular 33.8 Hemoglobin Concent Red Cell 12.4 Distribution Width Platelet Count 133 L Mean Platelet Volume 10.5 H Immature 0.700 H Granulocytes % Neutrophils % 89.2 H Lymphocytes % 5.0 L Monocytes % 5.0 Eosinophils % 0.0 Basophils % 0.1 Nucleated Red Blood 0.0 Cells % Immature 0.060 H Granulocytes # Neutrophils # 7.5 Lymphocytes # 0.4 L Monocytes # 0.4 Eosinophils # 0.0 Basophils # 0.0 Nucleated Red Blood 0.0 Cells # Prothrombin Time 13.0 Prothrombin Time 1.0 Ratio INR International 0.97 Normalized Ratio Sodium Level 140 Potassium Level 4.6 Chloride Level 104 Carbon Dioxide Level 27 Anion Gap 9 Blood Urea Nitrogen 12 Creatinine 0.53 Est Glomerular > 60 Filtrat Rate mL/min Glucose Level 157 Calcium Level 9.2 Triglycerides Level 119 Cholesterol Level 200 LDL Cholesterol, 128 Calculated HDL Cholesterol 48 Cholesterol/HDL 4.1 Ratio Subjective 24 Hr Interval Summary Free Text/Dictation Patient complain of spasm in legs that causing pain Exam/Review of Systems Exam Vitals Vital Signs Date Temp Pulse Resp B/P (MAP) Pulse Ox O2 O2 Flow FiO2 Time Delivery Rate 11/08/18 98.2 108 18 141/83 95 11:25 (102) 11/08/18 Nasal 04:00 Cannula 11/07/18 3.0 23:14 Intake and Output 11/07/18 11/07/18 11/08/18 1515:00 23:00 07:00 IntakeIntake Total 765 ml 235 ml BalanceBalance 765 ml 235 ml Constitutional: well developed Head: normocephalic, atraumatic Neck: supple Respiratory: clear to auscultation Cardiovascular: regular rate and rhythm Gastrointestinal: soft, non-tender Extremities: normal pulses Results Results 24hrs Laboratory Tests Test 11/07/18 12:43 11/07/18 17:34 11/07/18 19:08 11/07/18 22:57 Bedside Glucose 149 144 129 212 Test 11/08/18 00:23 11/08/18 05:36 11/08/18 07:38 Bedside Glucose 217 202 White Blood Count 8.4 # Red Blood Count 4.04 L Hemoglobin 11.4 L Hematocrit 33.7 L Mean Corpuscular 83.4 Volume Mean Corpuscular 28.2 L Hemoglobin Mean Corpuscular 33.8 Hemoglobin Concent Red Cell 12.4 Distribution Width Platelet Count 133 L Mean Platelet Volume 10.5 H Immature 0.700 H Granulocytes % Neutrophils % 89.2 H Lymphocytes % 5.0 L Monocytes % 5.0 Eosinophils % 0.0 Basophils % 0.1 Nucleated Red Blood 0.0 Cells % Immature 0.060 H Granulocytes # Neutrophils # 7.5 Lymphocytes # 0.4 L Monocytes # 0.4 Eosinophils # 0.0 Basophils # 0.0 Nucleated Red Blood 0.0 Cells # Prothrombin Time 13.0 Prothrombin Time 1.0 Ratio INR International 0.97 Normalized Ratio Sodium Level 140 Potassium Level 4.6 Chloride Level 104 Carbon Dioxide Level 27 Anion Gap 9 Blood Urea Nitrogen 12 Creatinine 0.53 Est Glomerular > 60 Filtrat Rate mL/min Glucose Level 157 Calcium Level 9.2 Triglycerides Level 119 Cholesterol Level 200 LDL Cholesterol, 128 Calculated HDL Cholesterol 48 Cholesterol/HDL 4.1 Ratio Medications Medication Current Medications Morphine Sulfate (morphine) 2 mg Q4H PRN IV SEVERE PAIN LEVEL 7-10 Last administered on 11/07/18at 14:43; Admin Dose 2 MG; Start 11/06/18 at 05:30 Ondansetron HCl (Zofran Inj) 4 mg Q6H PRN IV NAUSEA AND/OR VOMITING; Start 11/06/18 at 05:30 Pantoprazole (Protonix Tab) 40 mg AC BREAKFAST PO Last administered on 11/08/18at 08:54; Admin Dose 40 MG; Start 11/06/18 at 07:00 Insulin Glargine (Lantus) 6 units HS SC Last administered on 11/08/18at 00:36; Admin Dose 6 UNITS; Start 11/06/18 at 21:00 Miscellaneous Information 1 ea NOTE XX ; Start 11/06/18 at 05:30 Glucose (Glutose) 15 gm Q15M PRN PO DECREASED GLUCOSE; Start 11/06/18 at 05:30 Glucose (Glutose) 22.5 gm Q15M PRN PO DECREASED GLUCOSE; Start 11/06/18 at 05:30 Dextrose (D50w Syringe) 25 ml Q15M PRN IV DECREASED GLUCOSE; Start 11/06/18 at 05:30 Dextrose (D50w Syringe) 50 ml Q15M PRN IV DECREASED GLUCOSE; Start 11/06/18 at 05:30 Glucagon (Glucagen) 1 mg Q15M PRN IM DECREASED GLUCOSE; Start 11/06/18 at 05:30 Glucose (Glutose) 15 gm Q15M PRN BUCCAL DECREASED GLUCOSE; Start 11/06/18 at 05:30 Amlodipine Besylate (Norvasc) 5 mg BID PO Last administered on 11/08/18at 08:56; Admin Dose 5 MG; Start 11/06/18 at 21:00 Insulin Aspart (Novolog Insulin Pen) NOVOLOG *MILD* ALGORI... Q6 SC Last administered on 11/08/18at 05:46; Admin Dose 2 UNIT; Start 11/07/18 at 01:30 Hydralazine HCl (Apresoline) 25 mg BID PO Last administered on 11/08/18at 08:55; Admin Dose 25 MG; Start 11/07/18 at 21:00 Oxycodone HCl (Roxicodone) 15 mg Q4H PRN PO .PAIN; Start 11/07/18 at 22:30 Oxycodone HCl (Roxicodone) 10 mg Q4H PRN PO .PAIN; Start 11/07/18 at 22:30 Oxycodone HCl (Roxicodone) 5 mg Q4H PRN PO .PAIN; Start 11/07/18 at 22:30 Hydromorphone HCl (Dilaudid) 1 mg Q3H PRN IV .BREAKTHROUGH PAIN; Start 11/07/18 at 22:30 Acetaminophen (Tylenol Tab) 1,000 mg Q8 PO Last administered on 11/08/18at 05:41; Admin Dose 1,000 MG; Start 11/08/18 at 06:00 Ondansetron HCl (Zofran Inj) 4 mg Q4H PRN IV NAUSEA/VOMITING; Start 11/08/18 at 22:30 Gabapentin (Neurontin) 300 mg QHS PO ; Start 11/08/18 at 21:00 Docusate Sodium (Colace) 200 mg BID PO Last administered on 11/08/18at 08:53; Admin Dose 200 MG; Start 11/08/18 at 09:00; Stop 11/10/18 at 21:01 Simethicone (Mylicon) 80 mg TID PRN PO .GAS; Start 11/07/18 at 22:30 Senna/Docusate Sodium (Senokot-S) 2 tab BID PRN PO .CONSTIPATION; Start 11/07/18 at 22:30 Magnesium Hydroxide (Milk Of Mag) 30 ml HS PRN PO .CONSTIPATION; Start 11/07/18 at 22:30 Bisacodyl (Dulcolax Supp) 10 mg DAILY PRN OR .CONSTIPATION; Start 11/07/18 at 22:30 Sodium Biphosphate/ Sodium Phosphate (Fleet Enema) 133 ml DAILY PRN OR .CONSTIPATION; Start 11/07/18 at 22:30 Diphenhydramine HCl (Benadryl) 25 mg Q4H PRN IV .ITCHING; Start 11/07/18 at 22:30 Naloxone HCl (Narcan) 0.2 mg Q2M PRN IV .RESP RATE; Start 11/07/18 at 22:30 IV Flush (NS 3 ml) 3 ml per protocol IV ; Start 11/07/18 at 22:30 Cefazolin Sodium/ Dextrose 50 ml @ 100 mls/hr Q8H IVPB Last administered on 11/08/18at 04:18; Admin Dose 100 MLS/HR; Start 11/08/18 at 04:00; Stop 11/08/18 at 20:29 SHELIA MAYORGA November 08, 2018 11:28
[2018-11-08] MEDS: BACLOFEN 10 MG TAB PO SCH ×2 (12:23→20:17)
--- NOTE | 2018-11-08 13:55 | CONS ---
Consultation Date/Type/Reason Admit Date/Time November 06, 2018 at 03:31 Initial Consult Date 11/06/18 Type of Consult Cardiology Requesting Provider: ZAHIRA BELLO MD Date/Time of Note DATE: 11/08/18 TIME: 13:54 24 HR Interval Summary Free Text/Dictation Vs reviewed - stable Exam/Review of Systems Vital Signs Vitals Vital Signs Date Temp Pulse Resp B/P (MAP) Pulse Ox O2 O2 Flow FiO2 Time Delivery Rate 11/08/18 103 12:00 11/08/18 98.2 18 141/83 95 11:25 (102) 11/08/18 Nasal 04:00 Cannula 11/07/18 3.0 23:14 Intake and Output 11/07/18 11/07/18 11/08/18 1515:00 23:00 07:00 IntakeIntake Total 765 ml 235 ml BalanceBalance 765 ml 235 ml Labs Result Diagram: 11/08/18 0738 11/08/18 0738 Results 24hrs Laboratory Tests Test 11/07/18 17:34 11/07/18 19:08 11/07/18 22:57 11/08/18 00:23 Bedside Glucose 144 129 212 217 Test 11/08/18 05:36 11/08/18 07:38 11/08/18 12:30 Bedside Glucose 202 164 White Blood Count 8.4 # Red Blood Count 4.04 L Hemoglobin 11.4 L Hematocrit 33.7 L Mean Corpuscular 83.4 Volume Mean Corpuscular 28.2 L Hemoglobin Mean Corpuscular 33.8 Hemoglobin Concent Red Cell 12.4 Distribution Width Platelet Count 133 L Mean Platelet Volume 10.5 H Immature 0.700 H Granulocytes % Neutrophils % 89.2 H Lymphocytes % 5.0 L Monocytes % 5.0 Eosinophils % 0.0 Basophils % 0.1 Nucleated Red Blood 0.0 Cells % Immature 0.060 H Granulocytes # Neutrophils # 7.5 Lymphocytes # 0.4 L Monocytes # 0.4 Eosinophils # 0.0 Basophils # 0.0 Nucleated Red Blood 0.0 Cells # Prothrombin Time 13.0 Prothrombin Time 1.0 Ratio INR International 0.97 Normalized Ratio Sodium Level 140 Potassium Level 4.6 Chloride Level 104 Carbon Dioxide Level 27 Anion Gap 9 Blood Urea Nitrogen 12 Creatinine 0.53 Est Glomerular > 60 Filtrat Rate mL/min Glucose Level 157 Calcium Level 9.2 Triglycerides Level 119 Cholesterol Level 200 LDL Cholesterol, 128 Calculated HDL Cholesterol 48 Cholesterol/HDL 4.1 Ratio Medications Medications Current Medications Morphine Sulfate (morphine) 2 mg Q4H PRN IV SEVERE PAIN LEVEL 7-10 Last administered on 11/07/18at 14:43; Admin Dose 2 MG; Start 11/06/18 at 05:30 Ondansetron HCl (Zofran Inj) 4 mg Q6H PRN IV NAUSEA AND/OR VOMITING; Start 11/06/18 at 05:30 Pantoprazole (Protonix Tab) 40 mg AC BREAKFAST PO Last administered on 11/08/18 08:54; Admin Dose 40 MG; Start 11/06/18 at 07:00 Insulin Glargine (Lantus) 6 units HS SC Last administered on 11/08/18at 00:36; Admin Dose 6 UNITS; Start 11/06/18 at 21:00 Miscellaneous Information 1 ea NOTE XX ; Start 11/06/18 at 05:30 Glucose (Glutose) 15 gm Q15M PRN PO DECREASED GLUCOSE; Start 11/06/18 at 05:30 Glucose (Glutose) 22.5 gm Q15M PRN PO DECREASED GLUCOSE; Start 11/06/18 at 05:30 Dextrose (D50w Syringe) 25 ml Q15M PRN IV DECREASED GLUCOSE; Start 11/06/18 at 05:30 Dextrose (D50w Syringe) 50 ml Q15M PRN IV DECREASED GLUCOSE; Start 11/06/18 at 05:30 Glucagon (Glucagen) 1 mg Q15M PRN IM DECREASED GLUCOSE; Start 11/06/18 at 05:30 Glucose (Glutose) 15 gm Q15M PRN BUCCAL DECREASED GLUCOSE; Start 11/06/18 at 05:30 Amlodipine Besylate (Norvasc) 5 mg BID PO Last administered on 11/08/18at 08:56; Admin Dose 5 MG; Start 11/06/18 at 21:00 Insulin Aspart (Novolog Insulin Pen) NOVOLOG *MILD* ALGORI... Q6 SC Last admi nistered on 11/08/18at 12:37; Admin Dose 1 UNIT; Start 11/07/18 at 01:30 Hydralazine HCl (Apresoline) 25 mg BID PO Last administered on 11/08/18at 08:55; Admin Dose 25 MG; Start 11/07/18 at 21:00 Oxycodone HCl (Roxicodone) 15 mg Q4H PRN PO .PAIN; Start 11/07/18 at 22:30 Oxycodone HCl (Roxicodone) 10 mg Q4H PRN PO .PAIN; Start 11/07/18 at 22:30 Oxycodone HCl (Roxicodone) 5 mg Q4H PRN PO .PAIN; Start 11/07/18 at 22:30 Hydromorphone HCl (Dilaudid) 1 mg Q3H PRN IV .BREAKTHROUGH PAIN; Start 11/07/18 at 22:30 Acetaminophen (Tylenol Tab) 1,000 mg Q8 PO Last administered on 11/08/18at 12:25; Admin Dose 1,000 MG; Start 11/08/18 at 06:00 Ondansetron HCl (Zofran Inj) 4 mg Q4H PRN IV NAUSEA/VOMITING; Start 11/08/18 at 22:30 Gabapentin (Neurontin) 300 mg QHS PO ; Start 11/08/18 at 21:00 Docusate Sodium (Colace) 200 mg BID PO Last administered on 11/08/18at 08:53; Admin Dose 200 MG; Start 11/08/18 at 09:00; Stop 11/10/18 at 21:01 Simethicone (Mylicon) 80 mg TID PRN PO .GAS; Start 11/07/18 at 22:30 Senna/Docusate Sodium (Senokot-S) 2 tab BID PRN PO .CONSTIPATION; Start 11/07/18 at 22:30 Magnesium Hydroxide (Milk Of Mag) 30 ml HS PRN PO .CONSTIPATION; Start 11/07/18 at 22:30 Bisacodyl (Dulcolax Supp) 10 mg DAILY PRN NM .CONSTIPATION; Start 11/07/18 at 22:30 Sodium Biphosphate/ Sodium Phosphate (Fleet Enema) 133 ml DAILY PRN NM .CONSTIPATION; Start 11/07/18 at 22:30 Diphenhydramine HCl (Benadryl) 25 mg Q4H PRN IV .ITCHING; Start 11/07/18 at 22:30 Naloxone HCl (Narcan) 0.2 mg Q2M PRN IV .RESP RATE; Start 11/07/18 at 22:30 IV Flush (NS 3 ml) 3 ml per protocol IV ; Start 11/07/18 at 22:30 Cefazolin Sodium/ Dextrose 50 ml @ 100 mls/hr Q8H IVPB Last administered on 11/08/18at 12:22; Admin Dose 100 MLS/HR; Start 11/08/18 at 04:00; Stop 11/08/18 at 20:29 Baclofen (Lioresal) 5 mg TID PO Last administered on 11/08/18at 12:23; Admin Dose 5 MG; Start 11/08/18 at 13:00 TERESO ESTRADA MD November 08, 2018 13:55
[2018-11-08] MEDS: morphine 2 MG INJ IV PRN (15:16)
[2018-11-08] MEDS: oxyCODONE 5 MG TAB PO PRN (16:02)
[2018-11-08] MEDS: HYDROmorphONE 1 MG/ML SYG IV PRN (17:45)
--- NOTE | 2018-11-08 18:53 | PN ---
Date/Time of Note Date/Time of Note DATE: 11/08/18 TIME: 18:49 Assessment/Plan Lines/Catheters IV Catheter Type (from Nrsg): Peripheral IV Rodriguez in Place (from Nrsg): No Assessment/Plan Chief Complaint/Hosp Course Postop day #1 status post IM nail left IT fracture. The pain medication ordered for the patient has not been given according to pain protocol prescribed. Once this is begun as ordered I expect the patient's pain to a significant improved. In addition the medicine team did order muscle relaxant as the patient is having some painful muscle spasms which believe will help as well. Continue to monitor hemoglobin Carbohydrate controlled diet Pain control Weight-bear as tolerated PT/OT DVT prophylaxis: SCDs bilaterally. Lovenox 40 mg daily x6 weeks Discharge planning Subjective 24 Hr Interval Summary Patient doing well No acute events overnight Pain is not well controlled Exam/Review of Systems Vital Signs Vitals Vital Signs Date Temp Pulse Resp B/P (MAP) Pulse Ox O2 O2 Flow FiO2 Time Delivery Rate 11/08/18 96 148/86 16:51 (106) 11/08/18 98.2 18 99 15:03 11/08/18 Nasal 04:00 Cannula 11/07/18 3.0 23:14 Intake and Output 11/07/18 11/07/18 11/08/18 1515:00 23:00 07:00 IntakeIntake Total 765 ml 235 ml BalanceBalance 765 ml 235 ml Exam Free Text/Dictation Left lower extremity: Dressing: clean, dry, and intact, no erythema sensation to the dorsal aspect of her foot appears to be mostly intact. Sensation to the remainder of the foot is not intact to light touch which is the patient's baseline. There is no motor function of the foot and lower extremity. Dorsalis Pedis pulse +2, Brisk capillary refill. Compartments are soft. Calves non-tender to palpation bilaterally. Results Result Diagram: 11/08/18 0738 11/08/18 0738 DANILO BLISS MD November 08, 2018 18:53
[2018-11-08] MEDS: GABAPENTIN 300 MG CAP PO SCH (20:17)
[2018-11-09] VITALS (11 sets, daily range): BP systolic 122–143; BP diastolic 68–79; PULSE 89–113; RESP 18–20
[2018-11-09] MEDS: oxyCODONE 5 MG TAB PO PRN ×4 (01:42→23:42)
[2018-11-09] MEDS: HYDROmorphONE 1 MG/ML SYG IV PRN (04:21)
[2018-11-09] MEDS: ACETAMINOPHEN 500 MG TAB PO SCH ×3 (05:52→21:14)
[2018-11-09] MEDS: PANTOPRAZOLE (EC) 40 MG TAB PO SCH (05:52)
[2018-11-09] MEDS: INSULIN ASPART [NOVOLOG] 3 ML PEN SC SCH ×5 (05:57→23:55)
[2018-11-09] MEDS: DOCUSATE SODIUM 100 MG CAP PO SCH ×2 (08:30→21:22)
[2018-11-09] MEDS: BACLOFEN 10 MG TAB PO SCH ×3 (08:31→21:13)
[2018-11-09] MEDS: AMLODIPINE 5 MG TAB PO SCH ×2 (08:32→21:14)
[2018-11-09] MEDS: ENOXAPARIN 40 MG/0.4 ML SYG SC SCH (08:35)
--- NOTE | 2018-11-09 11:45 | PN ---
Date/Time of Note Date/Time of Note DATE: 11/09/18 TIME: 11:44 Assessment/Plan VTE Prophylaxis Risk score (from [facility])>0 risk: 9 SCD applied (from Ns): Yes Pharmacological prophylaxis: LMWH Lines/Catheters IV Catheter Type (from [facility]): Peripheral IV Urinary Cath still in place: No Assessment/Plan Hospital Course - Displaced intertrochanteric fracture of the proximal left femur, mild varus angulation of fracture components. Dr. Waggoner is following in orthopedic surgery consultation. Patient is on Plavix at home which is held for now. Will obtain 2D echo. Dr. Gillespie is asked to see patient for cardiology clearance. -Leukocytosis most likely secondary to hip fracture, will obtain urinalysis to rule out urinary infection. Obtain chest x-ray. -Hypertension, continue Norvasc and hydralazine. -Diabetes mellitus type 2. Continue Lantus and NovoLog. -History of cerebrovascular accident with left-sided weakness ischemic infarct. Plavix is held, last time patient took Plavix yesterday 11/05/2018. Result Diagram: 11/09/18 0608 11/09/18 0608 Results 24hrs Laboratory Tests Test 11/08/18 12:30 11/08/18 17:44 11/08/18 20:25 11/09/18 01:38 Bedside Glucose 164 159 174 145 Test 11/09/18 05:50 11/09/18 06:08 Bedside Glucose 170 White Blood Count 6.3 # Red Blood Count 3.78 L Hemoglobin 10.7 L Hematocrit 32.0 L Mean Corpuscular 84.7 Volume Mean Corpuscular 28.3 L Hemoglobin Mean Corpuscular 33.4 Hemoglobin Concent Red Cell 12.5 Distribution Width Platelet Count 122 L Mean Platelet Volume 10.1 Immature 0.500 H Granulocytes % Neutrophils % 77.8 H Lymphocytes % 11.7 L Monocytes % 8.4 Eosinophils % 1.3 Basophils % 0.3 Nucleated Red Blood 0.0 Cells % Immature 0.030 Granulocytes # Neutrophils # 4.9 Lymphocytes # 0.7 L Monocytes # 0.5 Eosinophils # 0.1 Basophils # 0.0 Nucleated Red Blood 0.0 Cells # Prothrombin Time 12.9 Prothrombin Time 1.0 Ratio INR International 0.96 Normalized Ratio Sodium Level 139 Potassium Level 4.2 Chloride Level 100 Carbon Dioxide Level 30 Anion Gap 9 Blood Urea Nitrogen 17 Creatinine 0.70 Est Glomerular > 60 Filtrat Rate mL/min Glucose Level 167 Calcium Level 8.8 Subjective 24 Hr Interval Summary Free Text/Dictation Patient is doing better, pain is better controlled Exam/Review of Systems Exam Vitals Vital Signs Date Temp Pulse Resp B/P (MAP) Pulse Ox O2 O2 Flow FiO2 Time Delivery Rate 11/09/18 113 08:00 11/09/18 98.0 18 122/68 98 07:42 (86) 11/08/18 Nasal 04:00 Cannula 11/07/18 3.0 23:14 Intake and Output 11/08/18 11/08/18 11/09/18 1515:00 23:00 07:00 IntakeIntake Total 550 ml 810 ml 750 ml BalanceBalance 550 ml 810 ml 750 ml Constitutional: well developed Head: normocephalic, atraumatic Neck: supple Respiratory: clear to auscultation Cardiovascular: regular rate and rhythm Gastrointestinal: soft, non-tender Extremities: normal pulses Results Results 24hrs Laboratory Tests Test 11/08/18 12:30 11/08/18 17:44 11/08/18 20:25 11/09/18 01:38 Bedside Glucose 164 159 174 145 Test 11/09/18 05:50 11/09/18 06:08 Bedside Glucose 170 White Blood Count 6.3 # Red Blood Count 3.78 L Hemoglobin 10.7 L Hematocrit 32.0 L Mean Corpuscular 84.7 Volume Mean Corpuscular 28.3 L Hemoglobin Mean Corpuscular 33.4 Hemoglobin Concent Red Cell 12.5 Distribution Width Platelet Count 122 L Mean Platelet Volume 10.1 Immature 0.500 H Granulocytes % Neutrophils % 77.8 H Lymphocytes % 11.7 L Monocytes % 8.4 Eosinophils % 1.3 Basophils % 0.3 Nucleated Red Blood 0.0 Cells % Immature 0.030 Granulocytes # Neutrophils # 4.9 Lymphocytes # 0.7 L Monocytes # 0.5 Eosinophils # 0.1 Basophils # 0.0 Nucleated Red Blood 0.0 Cells # Prothrombin Time 12.9 Prothrombin Time 1.0 Ratio INR International 0.96 Normalized Ratio Sodium Level 139 Potassium Level 4.2 Chloride Level 100 Carbon Dioxide Level 30 Anion Gap 9 Blood Urea Nitrogen 17 Creatinine 0.70 Est Glomerular > 60 Filtrat Rate mL/min Glucose Level 167 Calcium Level 8.8 Medications Medication Current Medications Ondansetron HCl (Zofran Inj) 4 mg Q6H PRN IV NAUSEA AND/OR VOMITING; Start 11/06/18 at 05:30 Pantoprazole (Protonix Tab) 40 mg AC BREAKFAST PO Last administered on 11/09/18at 05:52; Admin Dose 40 MG; Start 11/06/18 at 07:00 Insulin Glargine (Lantus) 6 units HS SC Last administered on 11/08/18at 20:35; Admin Dose 6 UNITS; Start 11/06/18 at 21:00 Miscellaneous Information 1 ea NOTE XX ; Start 11/06/18 at 05:30 Glucose (Glutose) 15 gm Q15M PRN PO DECREASED GLUCOSE; Start 11/06/18 at 05:30 Glucose (Glutose) 22.5 gm Q15M PRN PO DECREASED GLUCOSE; Start 11/06/18 at 05:30 Dextrose (D50w Syringe) 25 ml Q15M PRN IV DECREASED GLUCOSE; Start 11/06/18 at 05:30 Dextrose (D50w Syringe) 50 ml Q15M PRN IV DECREASED GLUCOSE; Start 11/06/18 at 05:30 Glucagon (Glucagen) 1 mg Q15M PRN IM DECREASED GLUCOSE; Start 11/06/18 at 05:30 Glucose (Glutose) 15 gm Q15M PRN BUCCAL DECREASED GLUCOSE; Start 11/06/18 at 05:30 Amlodipine Besylate (Norvasc) 5 mg BID PO Last administered on 11/09/18at 08:32; Admin Dose 5 MG; Start 11/06/18 at 21:00 Insulin Aspart (Novolog Insulin Pen) NOVOLOG *MILD* ALGORI... Q6 SC Last administered on 11/09/18at 05:57; Admin Dose 1 UNIT; Start 11/07/18 at 01:30 Hydralazine HCl (Apresoline) 25 mg BID PO Last administered on 11/09/18at 08:30; Admin Dose 25 MG; Start 11/07/18 at 21:00 Oxycodone HCl (Roxicodone) 15 mg Q4H PRN PO .PAIN; Start 11/07/18 at 22:30 Oxycodone HCl (Roxicodone) 10 mg Q4H PRN PO .PAIN Last administered on 11/09/18at 01:42; Admin Dose 10 MG; Start 11/07/18 at 22:30 Oxycodone HCl (Roxicodone) 5 mg Q4H PRN PO .PAIN Last administered on 11/09/18 08:31; Admin Dose 5 MG; Start 11/07/18 at 22:30 Hydromorphone HCl (Dilaudid) 1 mg Q3H PRN IV .BREAKTHROUGH PAIN Last administered on 11/09/18 04:21; Admin Dose 1 MG; Start 11/07/18 at 22:30 Acetaminophen (Tylenol Tab) 1,000 mg Q8 PO Last administered on 11/09/18 05:52; Admin Dose 1,000 MG; Start 11/08/18 at 06:00 Ondansetron HCl (Zofran Inj) 4 mg Q4H PRN IV NAUSEA/VOMITING; Start 11/08/18 at 22:30 Gabapentin (Neurontin) 300 mg QHS PO Last administered on 11/08/18at 20:17; Admin Dose 300 MG; Start 11/08/18 at 21:00 Docusate Sodium (Colace) 200 mg BID PO Last administered on 11/09/18at 08:30; Admin Dose 200 MG; Start 11/08/18 at 09:00; Stop 11/10/18 at 21:01 Simethicone (Mylicon) 80 mg TID PRN PO .GAS; Start 11/07/18 at 22:30 Senna/Docusate Sodium (Senokot-S) 2 tab BID PRN PO .CONSTIPATION; Start 11/07/18 at 22:30 Magnesium Hydroxide (Milk Of Mag) 30 ml HS PRN PO .CONSTIPATION; Start 11/07/18 at 22:30 Bisacodyl (Dulcolax Supp) 10 mg DAILY PRN [place] .CONSTIPATION; Start 11/07/18 at 22:30 Sodium Biphosphate/ Sodium Phosphate (Fleet Enema) 133 ml DAILY PRN [place] .CONSTIPATION; Start 11/07/18 at 22:30 Diphenhydramine HCl (Benadryl) 25 mg Q4H PRN IV .ITCHING; Start 11/07/18 at 22:30 Naloxone HCl (Narcan) 0.2 mg Q2M PRN IV .RESP RATE; Start 11/07/18 at 22:30 IV Flush (NS 3 ml) 3 ml per protocol IV ; Start 11/07/18 at 22:30 Baclofen (Lioresal) 5 mg TID PO Last administered on 11/09/18at 08:31; Admin Dose 5 MG; Start 11/08/18 at 13:00 Enoxaparin Sodium (Lovenox) 40 mg DAILY SC Last administered on 11/09/18at 08:35; Admin Dose 40 MG; Start 11/09/18 at 09:00 SHELIA MAYORGA November 09, 2018 11:45
--- NOTE | 2018-11-09 12:02 | CONS ---
Consult Date/Type/Reason Admit Date/Time November 06, 2018 at 03:31 Initial Consult Date 11/06/18 Requesting Provider: ZAHIRA BELLO MD Date/Time of Note DATE: 11/09/18 TIME: 12:00 Subjective NO acute events - post op -comfortable - no ectopy on tele now. ROS: No fever, no chills, no nausea, no vomiting, no diarrhea/constipation No recent weight changes No chest pain, no PND, no orthopnea - mild SOB No dizziness, blurred vision No thirst, no heat or cold intolerance Objective Vitals Vital Signs Date Temp Pulse Resp B/P (MAP) Pulse Ox O2 O2 Flow FiO2 Time Delivery Rate 11/09/18 98.0 95 20 131/72 97 11:54 (91) 11/08/18 Nasal 04:00 Cannula 11/07/18 3.0 23:14 Intake and Output 11/08/18 11/08/18 11/09/18 1414:59 22:59 06:59 IntakeIntake Total 550 ml 810 ml 750 ml BalanceBalance 550 ml 810 ml 750 ml Exam General: WN/WD/NAD, AOx comfortable HEENT: Unicetric/atraumatic/EOMI (follow commands) NECK: JVD elevated, no thyromegaly Lymph: no lymphadenopathy HEART: regular with no S3, II/ systolic murmur at apex LUNGS: Coarse sounds ABD: soft, NT, ND, +BS : Intact Neuro: non focal SKIN: chronic changes EXT: trace edema, post op Results/Medications Result Diagram: 11/09/18 0608 11/09/18 0608 Results 24 hrs Laboratory Tests Test 11/08/18 12:30 11/08/18 17:44 11/08/18 20:25 11/09/18 01:38 Bedside Glucose 164 159 174 145 Test 11/09/18 05:50 11/09/18 06:08 11/09/18 11:47 Bedside Glucose 170 223 H White Blood Count 6.3 # Red Blood Count 3.78 L Hemoglobin 10.7 L Hematocrit 32.0 L Mean Corpuscular 84.7 Volume Mean Corpuscular 28.3 L Hemoglobin Mean Corpuscular 33.4 Hemoglobin Concent Red Cell 12.5 Distribution Width Platelet Count 122 L Mean Platelet Volume 10.1 Immature 0.500 H Granulocytes % Neutrophils % 77.8 H Lymphocytes % 11.7 L Monocytes % 8.4 Eosinophils % 1.3 Basophils % 0.3 Nucleated Red Blood 0.0 Cells % Immature 0.030 Granulocytes # Neutrophils # 4.9 Lymphocytes # 0.7 L Monocytes # 0.5 Eosinophils # 0.1 Basophils # 0.0 Nucleated Red Blood 0.0 Cells # Prothrombin Time 12.9 Prothrombin Time 1.0 Ratio INR International 0.96 Normalized Ratio Sodium Level 139 Potassium Level 4.2 Chloride Level 100 Carbon Dioxide Level 30 Anion Gap 9 Blood Urea Nitrogen 17 Creatinine 0.70 Est Glomerular > 60 Filtrat Rate mL/min Glucose Level 167 Calcium Level 8.8 Home Meds Active Scripts Ibuprofen* (Motrin*) 600 Mg Tab, 600 MG PO Q6H PRN for PAIN AND OR ELEVATED TEMP, #30 TAB Prov:TEZ SALCEDO MD 06/28/18 Reported Medications Clopidogrel Bisulfate (Clopidogrel) 75 Mg Tablet, 75 MG PO DAILY, #30 TAB 11/27/17 Hydralazine Hcl* (Hydralazine Hcl*) 10 Mg Tablet, 10 MG PO DAILY, #60 TAB 11/27/17 Pantoprazole* (Pantoprazole*) 40 Mg Tablet.dr, 40 MG PO AC BREAKFAST, TAB 11/27/17 Amlodipine Besylate* (Norvasc*) 5 Mg Tablet, 5 MG PO DAILY, TAB 11/27/17 Insulin Glargine,Hum.rec.anlog (Basaglar Kwikpen U-100) 100 Unit/1 Ml Insuln.pen, 6 UNIT SC QHS, EA 11/27/17 Medications Current Medications Ondansetron HCl (Zofran Inj) 4 mg Q6H PRN IV NAUSEA AND/OR VOMITING; Start 11/06/18 at 05:30 Pantoprazole (Protonix Tab) 40 mg AC BREAKFAST PO Last administered on 11/09/18at 05:52; Admin Dose 40 MG; Start 11/06/18 at 07:00 Insulin Glargine (Lantus) 6 units HS SC Last administered on 11/08/18at 20:35; Admin Dose 6 UNITS; Start 11/06/18 at 21:00 Miscellaneous Information 1 ea NOTE XX ; Start 11/06/18 at 05:30 Glucose (Glutose) 15 gm Q15M PRN PO DECREASED GLUCOSE; Start 11/06/18 at 05:30 Glucose (Glutose) 22.5 gm Q15M PRN PO DECREASED GLUCOSE; Start 11/06/18 at 05:30 Dextrose (D50w Syringe) 25 ml Q15M PRN IV DECREASED GLUCOSE; Start 11/06/18 at 05:30 Dextrose (D50w Syringe) 50 ml Q15M PRN IV DECREASED GLUCOSE; Start 11/06/18 at 05:30 Glucagon (Glucagen) 1 mg Q15M PRN IM DECREASED GLUCOSE; Start 11/06/18 at 05:30 Glucose (Glutose) 15 gm Q15M PRN BUCCAL DECREASED GLUCOSE; Start 11/06/18 at 05:30 Amlodipine Besylate (Norvasc) 5 mg BID PO Last administered on 11/09/18 08:32; Admin Dose 5 MG; Start 11/06/18 at 21:00 Insulin Aspart (Novolog Insulin Pen) NOVOLOG *MILD* ALGORI... Q6 SC Last ad ministered on 11/09/18at 11:53; Admin Dose 3 UNIT; Start 11/07/18 at 01:30 Hydralazine HCl (Apresoline) 25 mg BID PO Last administered on 11/09/18 08:30; Admin Dose 25 MG; Start 11/07/18 at 21:00 Oxycodone HCl (Roxicodone) 15 mg Q4H PRN PO .PAIN; Start 11/07/18 at 22:30 Oxycodone HCl (Roxicodone) 10 mg Q4H PRN PO .PAIN Last administered on 11/09/18 01:42; Admin Dose 10 MG; Start 11/07/18 at 22:30 Oxycodone HCl (Roxicodone) 5 mg Q4H PRN PO .PAIN Last administered on 11/09/18 08:31; Admin Dose 5 MG; Start 11/07/18 at 22:30 Hydromorphone HCl (Dilaudid) 1 mg Q3H PRN IV .BREAKTHROUGH PAIN Last administered on 11/09/18at 04:21; Admin Dose 1 MG; Start 11/07/18 at 22:30 Acetaminophen (Tylenol Tab) 1,000 mg Q8 PO Last administered on 11/09/18 05:52; Admin Dose 1,000 MG; Start 11/08/18 at 06:00 Ondansetron HCl (Zofran Inj) 4 mg Q4H PRN IV NAUSEA/VOMITING; Start 11/08/18 at 22:30 Gabapentin (Neurontin) 300 mg QHS PO Last administered on 11/08/18at 20:17; Admin Dose 300 MG; Start 11/08/18 at 21:00 Docusate Sodium (Colace) 200 mg BID PO Last administered on 11/09/18at 08:30; Admin Dose 200 MG; Start 11/08/18 at 09:00; Stop 11/10/18 at 21:01 Simethicone (Mylicon) 80 mg TID PRN PO .GAS; Start 11/07/18 at 22:30 Senna/Docusate Sodium (Senokot-S) 2 tab BID PRN PO .CONSTIPATION; Start at 22:30 Magnesium Hydroxide (Milk Of Mag) 30 ml HS PRN PO .CONSTIPATION; Start 11/07/18 at 22:30 Bisacodyl (Dulcolax Supp) 10 mg DAILY PRN [place] .CONSTIPATION; Start 11/07/18 at 22:30 Sodium Biphosphate/ Sodium Phosphate (Fleet Enema) 133 ml DAILY PRN [place] .CONSTIPATION; Start 11/07/18 at 22:30 Diphenhydramine HCl (Benadryl) 25 mg Q4H PRN IV .ITCHING; Start 11/07/18 at 22:30 Naloxone HCl (Narcan) 0.2 mg Q2M PRN IV .RESP RATE; Start 11/07/18 at 22:30 IV Flush (NS 3 ml) 3 ml per protocol IV ; Start 11/07/18 at 22:30 Baclofen (Lioresal) 5 mg TID PO Last administered on 11/09/18at 08:31; Admin Dose 5 MG; Start 11/08/18 at 13:00 Enoxaparin Sodium (Lovenox) 40 mg DAILY SC Last administered on 11/09/18at 08:35; Admin Dose 40 MG; Start 11/09/18 at 09:00 Assessment/Plan Hospital Course (Demo Recall) 1. Preoperative evaluation prior to lower extremity open reduction, internal fixation for a hip fracture.-no cp/sob. Neg trop x 2/Echo with NL EF and no sig valve abnl - tolerated procedure well. 2. Hypertension-improved control on increased dose of norvasc- better now - will follow. 3. Status post fall, mechanical by description - no ectopy on tele. 4. Diabetes mellitus- con't Rx. 5. History of cerebrovascular accident- defer to primary team TERESO ESTRADA MD November 09, 2018 12:01
--- NOTE | 2018-11-09 16:14 | PN ---
Date/Time of Note Date/Time of Note DATE: 11/09/18 TIME: 16:13 Assessment/Plan Lines/Catheters IV Catheter Type (from Nrsg): Saline Lock Rodriguez in Place (from Nrsg): No Assessment/Plan Chief Complaint/Hosp Course Postop day #2 status post IM nail left IT fracture. Patient is a good candidate for evaluation for acute rehab unit. Continue to monitor hemoglobin Carbohydrate controlled diet Pain control Weight-bear as tolerated PT/OT DVT prophylaxis: SCDs bilaterally. Lovenox 40 mg daily x6 weeks Acute rehab unit consult placed Discharge planning Subjective 24 Hr Interval Summary Patient doing well No acute events overnight Pain is well controlled Exam/Review of Systems Vital Signs Vitals Vital Signs Date Temp Pulse Resp B/P (MAP) Pulse Ox O2 O2 Flow FiO2 Time Delivery Rate 11/09/18 113 12:00 11/09/18 98.0 20 131/72 97 11:54 (91) 11/08/18 Nasal 04:00 Cannula 11/07/18 3.0 23:14 Intake and Output 11/08/18 11/08/18 11/09/18 1414:59 22:59 06:59 IntakeIntake Total 550 ml 810 ml 750 ml BalanceBalance 550 ml 810 ml 750 ml Exam Free Text/Dictation Left lower extremity: Dressing: clean, dry, and intact, no erythema Sensation intact to light touch in a sural, saphenous, deep peroneal, superficial peroneal, medial and lateral plantar nerve distribution. Motor is intact, patient able to dorsiflex and plantarflex ankle and extend and flex great toe. Dorsalis Pedis pulse +2, Brisk capillary refill. Compartments are soft. Calves non-tender to palpation bilaterally. Results Result Diagram: 11/09/18 0608 11/09/18 0608 DANILO BLISS MD November 09, 2018 16:14
[2018-11-09] MEDS: ONDANSETRON 4 MG INJ IV PRN (18:18)
[2018-11-09] MEDS: GABAPENTIN 300 MG CAP PO SCH (21:13)
[2018-11-09] MEDS: INSULIN GLARGINE [LANTus] (100 UNITS/ML) SYG SC SCH (21:21)
[2018-11-10] VITALS (9 sets, daily range): BP systolic 110–140; BP diastolic 73–85; PULSE 91–121; RESP 18–20
[2018-11-10] MEDS: HYDROmorphONE 1 MG/ML SYG IV PRN ×2 (03:35→10:15)
[2018-11-10] MEDS: ACETAMINOPHEN 500 MG TAB PO SCH ×3 (05:27→21:14)
[2018-11-10] MEDS: INSULIN ASPART [NOVOLOG] 3 ML PEN SC SCH ×3 (05:36→18:09)
--- NOTE | 2018-11-10 08:29 | PN ---
Date/Time of Note Date/Time of Note DATE: 11/10/18 TIME: 08:27 Assessment/Plan Lines/Catheters IV Catheter Type (from Nrsg): Saline Lock Rodriguez in Place (from Nrsg): No Assessment/Plan Chief Complaint/Hosp Course Postop day #3 status post IM nail left IT fracture. Patient is a good candidate for evaluation for acute rehab unit. Reviewed bowel care orders with nurse today. The bowel care orders per the nurse today were not acknowledged when the patient was transferred to floor since Saturday night. Continue to monitor hemoglobin Carbohydrate controlled diet Pain control Weight-bear as tolerated PT/OT DVT prophylaxis: SCDs bilaterally. Lovenox 40 mg daily x6 weeks Acute rehab unit consult placed Discharge planning Subjective 24 Hr Interval Summary Patient doing well No acute events overnight Pain is well controlled. Patient is constipated. Has not had bowel movement since surgery Exam/Review of Systems Vital Signs Vitals Vital Signs Date Temp Pulse Resp B/P (MAP) Pulse Ox O2 O2 Flow FiO2 Time Delivery Rate 11/10/18 100 08:06 11/10/18 98.5 20 132/79 97 07:54 (96) 11/08/18 Nasal 04:00 Cannula 11/07/18 3.0 23:14 Intake and Output 11/09/18 11/09/18 11/10/18 1515:00 23:00 07:00 IntakeIntake Total 750 ml BalanceBalance 750 ml Exam Free Text/Dictation Left lower extremity: Dressing: clean, dry, and intact, no erythema Sensation intact to light touch in a sural, saphenous, deep peroneal, superficial peroneal, medial and lateral plantar nerve distribution. Motor is intact, patient able to dorsiflex and plantarflex ankle and extend and flex great toe. Dorsalis Pedis pulse +2, Brisk capillary refill. Compartments are soft. Calves non-tender to palpation bilaterally. Results Result Diagram: 11/10/18 0533 11/10/18 0533 DANILO BLISS MD November 10, 2018 08:29
[2018-11-10] MEDS: PANTOPRAZOLE (EC) 40 MG TAB PO SCH (08:45)
[2018-11-10] MEDS: AMLODIPINE 5 MG TAB PO SCH ×2 (08:46→21:10)
[2018-11-10] MEDS: DOCUSATE SODIUM 100 MG CAP PO SCH ×2 (08:46→21:09)
[2018-11-10] MEDS: BACLOFEN 10 MG TAB PO SCH ×3 (08:46→21:09)
[2018-11-10] MEDS: SENNA/DOCUSATE NA (8.6MG/50MG) TAB PO PRN (08:47)
[2018-11-10] MEDS: MAGNESIUM HYDROXIDE 30ML CUP PO PRN (08:47)
[2018-11-10] MEDS: ENOXAPARIN 40 MG/0.4 ML SYG SC SCH (08:49)
[2018-11-10] MEDS: oxyCODONE 5 MG TAB PO PRN ×2 (09:14→21:07)
--- NOTE | 2018-11-10 12:03 | CONS ---
Assessment/Plan Assessment/Plan Hospital Course (Demo Recall) IMPRESSION: 1. Preoperative evaluation prior to lower extremity open reduction, internal fixation for a hip fracture.-no cp/sob. Neg trop x 2/Echo with NL EF and no sig valve abnl. 2. Hypertension-improved control on increased dose of norvasc 3. Status post fall, mechanical by description. 4. Diabetes mellitus. 5. History of cerebrovascular accident. 6. N/V-post-op Recc: -Continue baseline norvasc and hydralazine with reasonable BP controil -start BB given recurrent tachy -pain control -Follow Blood sugars closely -RX N/V Consultation Date/Type/Reason Admit Date/Time November 06, 2018 at 03:31 Initial Consult Date 11/06/18 Type of Consult Cardiology Reason for Consultation preop/HTN Requesting Provider: ZAHIRA BELLO MD Date/Time of Note DATE: 11/10/18 TIME: 12:00 Exam/Review of Systems Vital Signs Vitals Vital Signs Date Temp Pulse Resp B/P (MAP) Pulse Ox O2 O2 Flow FiO2 Time Delivery Rate 11/10/18 97.7 121 20 139/85 99 11:42 (103) 11/08/18 Nasal 04:00 Cannula 11/07/18 3.0 23:14 Intake and Output 11/09/18 11/09/18 11/10/18 1515:00 23:00 07:00 IntakeIntake Total 750 ml BalanceBalance 750 ml Exam Exam Review of Systems: CONSTITUTIONAL: No fevers, chills. PULMONARY: No sob CARDIOVASCULAR: No chest pain/palpitations GASTROINTESTINAL: nausea/vomiting. GENITOURINARY: No hematuria/dysuria. MUSCULOSKELETAL: No myagias/arthalgias. PSYCHIATRIC: The patient denies depression. NEUROLOGIC: No weakness Constitutional: alert, oriented Psych: no complaints Head: normocephalic ENMT: mucosa pink and moist Neck: supple, jvd (9 cm water) Respiratory: diminished breath sounds Cardiovascular: regular rate and rhythm Gastrointestinal: soft, non-tender Musculoskeletal: muscle tone (normal) Extremities: edema (none) Neurological: other (No focal deficicts) Labs Result Diagram: 11/10/18 0533 11/10/18 0533 Results 24hrs Laboratory Tests Test 11/09/18 17:44 11/09/18 21:12 11/09/18 23:44 11/10/18 05:29 Bedside Glucose 171 190 166 151 Test 11/10/18 05:33 11/10/18 11:33 White Blood Count 5.3 Red Blood Count 3.39 L Hemoglobin 9.7 L Hematocrit 29.0 L Mean Corpuscular 85.5 Volume Mean Corpuscular 28.6 L Hemoglobin Mean Corpuscular 33.4 Hemoglobin Concent Red Cell 12.5 Distribution Width Platelet Count 143 Mean Platelet Volume 10.1 Immature 0.400 Granulocytes % Neutrophils % 65.1 Lymphocytes % 17.0 Monocytes % 12.5 H Eosinophils % 4.4 Basophils % 0.6 Nucleated Red Blood 0.0 Cells % Immature 0.020 Granulocytes # Neutrophils # 3.4 Lymphocytes # 0.9 Monocytes # 0.7 Eosinophils # 0.2 Basophils # 0.0 Nucleated Red Blood 0.0 Cells # Prothrombin Time 13.2 Prothrombin Time 1.0 Ratio INR International 0.99 Normalized Ratio Sodium Level 139 Potassium Level 4.1 Chloride Level 103 Carbon Dioxide Level 29 Anion Gap 7 Blood Urea Nitrogen 20 Creatinine 0.69 Est Glomerular > 60 Filtrat Rate mL/min Glucose Level 145 Calcium Level 9.1 Bedside Glucose 252 H Medications Medications Current Medications Ondansetron HCl (Zofran Inj) 4 mg Q6H PRN IV NAUSEA AND/OR VOMITING; Start 11/06/18 at 05:30 Pantoprazole (Protonix Tab) 40 mg AC BREAKFAST PO Last administered on 11/10/18at 08:45; Admin Dose 40 MG; Start 11/06/18 at 07:00 Insulin Glargine (Lantus) 6 units HS SC Last administered on 11/09/18at 21:21; Admin Dose 6 UNITS; Start 11/06/18 at 21:00 Miscellaneous Information 1 ea NOTE XX ; Start 11/06/18 at 05:30 Glucose (Glutose) 15 gm Q15M PRN PO DECREASED GLUCOSE; Start 11/06/18 at 05:30 Glucose (Glutose) 22.5 gm Q15M PRN PO DECREASED GLUCOSE; Start 11/06/18 at 05:30 Dextrose (D50w Syringe) 25 ml Q15M PRN IV DECREASED GLUCOSE; Start 11/06/18 at 05:30 Dextrose (D50w Syringe) 50 ml Q15M PRN IV DECREASED GLUCOSE; Start 11/06/18 at 05:30 Glucagon (Glucagen) 1 mg Q15M PRN IM DECREASED GLUCOSE; Start 11/06/18 at 05:30 Glucose (Glutose) 15 gm Q15M PRN BUCCAL DECREASED GLUCOSE; Start 11/06/18 at 05:30 Amlodipine Besylate (Norvasc) 5 mg BID PO Last administered on 11/10/18 08:46; Admin Dose 5 MG; Start 11/06/18 at 21:00 Insulin Aspart (Novolog Insulin Pen) NOVOLOG *MILD* ALGORI... Q6 SC Last administered on 11/10/18 11:42; Admin Dose 3 UNIT; Start 11/07/18 at 01:30 Hydralazine HCl (Apresoline) 25 mg BID PO Last administered on 11/10/18 08:46; Admin Dose 25 MG; Start 11/07/18 at 21:00 Oxycodone HCl (Roxicodone) 15 mg Q4H PRN PO .PAIN; Start 11/07/18 at 22:30 Oxycodone HCl (Roxicodone) 10 mg Q4H PRN PO .PAIN Last administered on 11/10/18 09:14; Admin Dose 10 MG; Start 11/07/18 at 22:30 Oxycodone HCl (Roxicodone) 5 mg Q4H PRN PO .PAIN Last administered on 11/09/18 08:31; Admin Dose 5 MG; Start 11/07/18 at 22:30 Hydromorphone HCl (Dilaudid) 1 mg Q3H PRN IV .BREAKTHROUGH PAIN Last administered on 11/10/18 10:15; Admin Dose 1 MG; Start 11/07/18 at 22:30 Acetaminophen (Tylenol Tab) 1,000 mg Q8 PO Last administered on 11/10/18 05:27; Admin Dose 1,000 MG; Start 11/08/18 at 06:00 Ondansetron HCl (Zofran Inj) 4 mg Q4H PRN IV NAUSEA/VOMITING Last administered on 11/09/18 18:18; Admin Dose 4 MG; Start 11/08/18 at 22:30 Gabapentin (Neurontin) 300 mg QHS PO Last administered on 11/09/18 21:13; Admin Dose 300 MG; Start 11/08/18 at 21:00 Docusate Sodium (Colace) 200 mg BID PO Last administered on 11/10/18 08:46; Admin Dose 200 MG; Start 11/08/18 at 09:00; Stop 11/10/18 at 21:01 Simethicone (Mylicon) 80 mg TID PRN PO .GAS; Start 11/07/18 at 22:30 Senna/Docusate Sodium (Senokot-S) 2 tab BID PRN PO .CONSTIPATION Last administered on 11/10/18 08:47; Admin Dose 2 TAB; Start 11/07/18 at 22:30 Magnesium Hydroxide (Milk Of Mag) 30 ml HS PRN PO .CONSTIPATION Last administered on 11/10/18 08:47; Admin Dose 30 ML; Start 11/07/18 at 22:30 Bisacodyl (Dulcolax Supp) 10 mg DAILY PRN [place] .CONSTIPATION; Start 11/07/18 at 22:30 Sodium Biphosphate/ Sodium Phosphate (Fleet Enema) 133 ml DAILY PRN [place] .CONSTIPATION; Start 11/07/18 at 22:30 Diphenhydramine HCl (Benadryl) 25 mg Q4H PRN IV .ITCHING; Start 11/07/18 at 22:30 Naloxone HCl (Narcan) 0.2 mg Q2M PRN IV .RESP RATE; Start 11/07/18 at 22:30 IV Flush (NS 3 ml) 3 ml per protocol IV ; Start 11/07/18 at 22:30 Baclofen (Lioresal) 5 mg TID PO Last administered on 11/10/18 08:46; Admin Dose 5 MG; Start 11/08/18 at 13:00 Enoxaparin Sodium (Lovenox) 40 mg DAILY SC Last administered on 11/10/18 08:49; Admin Dose 40 MG; Start 11/09/18 at 09:00 RUSS PEPE November 10, 2018 12:03
[2018-11-10] MEDS ORDERED: METOPROLOL 5 MG INJ IV PRN (12:30)
--- NOTE | 2018-11-10 13:37 | PN ---
Date/Time of Note Date/Time of Note DATE: 11/10/18 TIME: 13:34 Assessment/Plan VTE Prophylaxis Risk score (from [facility] [place])>0 risk: 6 SCD applied (from Ns): Yes Pharmacological prophylaxis: LMWH Lines/Catheters IV Catheter Type (from [facility] Saline Lock Urinary Cath still in place: No Assessment/Plan Hospital Course Patient is complains of constipation continue bowel regiment, pending AR U eval. patient is get tachycardic with activity and physical therapy, continue telemetry monitoring, Dr. Gillespie is following in cardiology consultation. Assessment/Plan - Displaced intertrochanteric fracture of the proximal left femur, mild varus angulation of fracture components. s/p surgery. Dr. Waggoner is following in orthopedic surgery consultation. -Leukocytosis most likely secondary to hip fracture, resolved. -Hypertension, continue Norvasc and hydralazine. -Diabetes mellitus type 2. Continue Lantus and NovoLog. -History of cerebrovascular accident with left-sided weakness ischemic infarct. Further recommendations based on clinical course. Plan of care discussed with Dr. Potter. Result Diagram: 11/10/1833 11/10/1833 Results 24hrs Laboratory Tests Test 11/09/18 17:44 11/09/18 21:12 11/09/18 23:44 11/10/18 05:29 Bedside Glucose 171 190 166 151 Test 11/10/18 05:33 11/10/18 11:33 White Blood Count 5.3 Red Blood Count 3.39 L Hemoglobin 9.7 L Hematocrit 29.0 L Mean Corpuscular 85.5 Volume Mean Corpuscular 28.6 L Hemoglobin Mean Corpuscular 33.4 Hemoglobin Concent Red Cell 12.5 Distribution Width Platelet Count 143 Mean Platelet Volume 10.1 Immature 0.400 Granulocytes % Neutrophils % 65.1 Lymphocytes % 17.0 Monocytes % 12.5 H Eosinophils % 4.4 Basophils % 0.6 Nucleated Red Blood 0.0 Cells % Immature 0.020 Granulocytes # Neutrophils # 3.4 Lymphocytes # 0.9 Monocytes # 0.7 Eosinophils # 0.2 Basophils # 0.0 Nucleated Red Blood 0.0 Cells # Prothrombin Time 13.2 Prothrombin Time 1.0 Ratio INR International 0.99 Normalized Ratio Sodium Level 139 Potassium Level 4.1 Chloride Level 103 Carbon Dioxide Level 29 Anion Gap 7 Blood Urea Nitrogen 20 Creatinine 0.69 Est Glomerular > 60 Filtrat Rate mL/min Glucose Level 145 Calcium Level 9.1 Bedside Glucose 252 H Exam/Review of Systems Exam Vitals Vital Signs Date Temp Pulse Resp B/P (MAP) Pulse Ox O2 O2 Flow FiO2 Time Delivery Rate 11/10/18 116 12:03 11/10/18 97.7 20 139/85 99 11:42 (103) 11/08/18 Nasal 04:00 Cannula 11/07/18 3.0 23:14 Intake and Output 11/09/18 11/09/18 11/10/18 1515:00 23:00 07:00 IntakeIntake Total 750 ml BalanceBalance 750 ml Exam Constitutional: alert, oriented Respiratory: clear to auscultation Cardiovascular: nl pulses Gastrointestinal: soft, non-tender Musculoskeletal: other (Left hip s/p surgery) Extremities: normal pulses Neurological: nl mental status, other (Left-sided weakness) Results Results 24hrs Laboratory Tests Test 11/09/18 17:44 11/09/18 21:12 11/09/18 23:44 11/10/18 05:29 Bedside Glucose 171 190 166 151 Test 11/10/18 05:33 11/10/18 11:33 White Blood Count 5.3 Red Blood Count 3.39 L Hemoglobin 9.7 L Hematocrit 29.0 L Mean Corpuscular 85.5 Volume Mean Corpuscular 28.6 L Hemoglobin Mean Corpuscular 33.4 Hemoglobin Concent Red Cell 12.5 Distribution Width Platelet Count 143 Mean Platelet Volume 10.1 Immature 0.400 Granulocytes % Neutrophils % 65.1 Lymphocytes % 17.0 Monocytes % 12.5 H Eosinophils % 4.4 Basophils % 0.6 Nucleated Red Blood 0.0 Cells % Immature 0.020 Granulocytes # Neutrophils # 3.4 Lymphocytes # 0.9 Monocytes # 0.7 Eosinophils # 0.2 Basophils # 0.0 Nucleated Red Blood 0.0 Cells # Prothrombin Time 13.2 Prothrombin Time 1.0 Ratio INR International 0.99 Normalized Ratio Sodium Level 139 Potassium Level 4.1 Chloride Level 103 Carbon Dioxide Level 29 Anion Gap 7 Blood Urea Nitrogen 20 Creatinine 0.69 Est Glomerular > 60 Filtrat Rate mL/min Glucose Level 145 Calcium Level 9.1 Bedside Glucose 252 H Medications Medication Current Medications Ondansetron HCl (Zofran Inj) 4 mg Q6H PRN IV NAUSEA AND/OR VOMITING; Start 11/06/18 at 05:30 Pantoprazole (Protonix Tab) 40 mg AC BREAKFAST PO Last administered on 11/10/18at 08:45; Admin Dose 40 MG; Start 11/06/18 at 07:00 Insulin Glargine (Lantus) 6 units HS SC Last administered on 11/09/18at 21:21; Admin Dose 6 UNITS; Start 11/06/18 at 21:00 Miscellaneous Information 1 ea NOTE XX ; Start 11/06/18 at 05:30 Glucose (Glutose) 15 gm Q15M PRN PO DECREASED GLUCOSE; Start 11/06/18 at 05:30 Glucose (Glutose) 22.5 gm Q15M PRN PO DECREASED GLUCOSE; Start 11/06/18 at 05:30 Dextrose (D50w Syringe) 25 ml Q15M PRN IV DECREASED GLUCOSE; Start 11/06/18 at 05:30 Dextrose (D50w Syringe) 50 ml Q15M PRN IV DECREASED GLUCOSE; Start 11/06/18 at 05:30 Glucagon (Glucagen) 1 mg Q15M PRN IM DECREASED GLUCOSE; Start 11/06/18 at 05:30 Glucose (Glutose) 15 gm Q15M PRN BUCCAL DECREASED GLUCOSE; Start 11/06/18 at 05:30 Amlodipine Besylate (Norvasc) 5 mg BID PO Last administered on 11/10/18at 08:46; Admin Dose 5 MG; Start 11/06/18 at 21:00 Insulin Aspart (Novolog Insulin Pen) NOVOLOG *MILD* ALGORI... Q6 SC Last administered on 11/10/18at 11:42; Admin Dose 3 UNIT; Start 11/07/18 at 01:30 Hydralazine HCl (Apresoline) 25 mg BID PO Last administered on 11/10/18at 08:46; Admin Dose 25 MG; Start 11/07/18 at 21:00 Oxycodone HCl (Roxicodone) 15 mg Q4H PRN PO .PAIN; Start 11/07/18 at 22:30 Oxycodone HCl (Roxicodone) 10 mg Q4H PRN PO .PAIN Last administered on 11/10/18at 09:14; Admin Dose 10 MG; Start 11/07/18 at 22:30 Oxycodone HCl (Roxicodone) 5 mg Q4H PRN PO .PAIN Last administered on 11/09/18 08:31; Admin Dose 5 MG; Start 11/07/18 at 22:30 Hydromorphone HCl (Dilaudid) 1 mg Q3H PRN IV .BREAKTHROUGH PAIN Last administered on 11/10/18 10:15; Admin Dose 1 MG; Start 11/07/18 at 22:30 Acetaminophen (Tylenol Tab) 1,000 mg Q8 PO Last administered on 11/10/18 05:27; Admin Dose 1,000 MG; Start 11/08/18 at 06:00 Ondansetron HCl (Zofran Inj) 4 mg Q4H PRN IV NAUSEA/VOMITING Last administered on 11/09/18 18:18; Admin Dose 4 MG; Start 11/08/18 at 22:30 Gabapentin (Neurontin) 300 mg QHS PO Last administered on 11/09/18 21:13; Admin Dose 300 MG; Start 11/08/18 at 21:00 Docusate Sodium (Colace) 200 mg BID PO Last administered on 11/10/18 08:46; Admin Dose 200 MG; Start 11/08/18 at 09:00; Stop 11/10/18 at 21:01 Simethicone (Mylicon) 80 mg TID PRN PO .GAS; Start 11/07/18 at 22:30 Senna/Docusate Sodium (Senokot-S) 2 tab BID PRN PO .CONSTIPATION Last administered on 11/10/18 08:47; Admin Dose 2 TAB; Start 11/07/18 at 22:30 Magnesium Hydroxide (Milk Of Mag) 30 ml HS PRN PO .CONSTIPATION Last administered on 11/10/18 08:47; Admin Dose 30 ML; Start 11/07/18 at 22:30 Bisacodyl (Dulcolax Supp) 10 mg DAILY PRN [place] .CONSTIPATION; Start 11/07/18 at 22:30 Sodium Biphosphate/ Sodium Phosphate (Fleet Enema) 133 ml DAILY PRN [place] .CONSTIPATION; Start 11/07/18 at 22:30 Diphenhydramine HCl (Benadryl) 25 mg Q4H PRN IV .ITCHING; Start 11/07/18 at 22:30 Naloxone HCl (Narcan) 0.2 mg Q2M PRN IV .RESP RATE; Start 11/07/18 at 22:30 IV Flush (NS 3 ml) 3 ml per protocol IV ; Start 11/07/18 at 22:30 Baclofen (Lioresal) 5 mg TID PO Last administered on 11/10/18at 08:46; Admin Dose 5 MG; Start 11/08/18 at 13:00 Enoxaparin Sodium (Lovenox) 40 mg DAILY SC Last administered on 11/10/18at 08:49; Admin Dose 40 MG; Start 11/09/18 at 09:00 Metoprolol Tartrate (Lopressor) 25 mg BID PO ; Start 11/10/18 at 21:00 Metoprolol Tartrate (Lopressor) 5 mg Q4H PRN IV HR>110 Hold SBP<100; Start 10/23 at 12:30 LESLIE SNELL November 10, 2018 13:37
[2018-11-10] MEDS: ONDANSETRON 4 MG INJ IV PRN ×2 (15:23→21:08)
[2018-11-10] MEDS: GABAPENTIN 300 MG CAP PO SCH (21:10)
[2018-11-10] MEDS: METOPROLOL 25 MG TAB PO SCH (21:13)
[2018-11-10] MEDS: INSULIN GLARGINE [LANTus] (100 UNITS/ML) SYG SC SCH (21:56)
[2018-11-11] VITALS (12 sets, daily range): BP systolic 117–147; BP diastolic 70–82; PULSE 61–102; RESP 18–20
[2018-11-11] MEDS: INSULIN ASPART [NOVOLOG] 3 ML PEN SC SCH ×5 (00:11→21:42)
[2018-11-11] MEDS: MAGNESIUM HYDROXIDE 30ML CUP PO PRN (00:31)
[2018-11-11] MEDS: oxyCODONE 5 MG TAB PO PRN ×4 (04:49→20:38)
[2018-11-11] MEDS: ONDANSETRON 4 MG INJ IV PRN ×3 (04:49→20:31)
[2018-11-11] MEDS: ACETAMINOPHEN 500 MG TAB PO SCH ×3 (06:23→21:35)
[2018-11-11] MEDS: PANTOPRAZOLE (EC) 40 MG TAB PO SCH (06:24)
[2018-11-11] MEDS: BACLOFEN 10 MG TAB PO SCH ×3 (08:13→20:40)
[2018-11-11] MEDS: METOPROLOL 25 MG TAB PO SCH ×2 (08:13→20:39)
[2018-11-11] MEDS: AMLODIPINE 5 MG TAB PO SCH ×2 (08:14→20:39)
[2018-11-11] MEDS: ENOXAPARIN 40 MG/0.4 ML SYG SC SCH (09:14)
[2018-11-11] MEDS: SENNA/DOCUSATE NA (8.6MG/50MG) TAB PO PRN (14:17)
--- NOTE | 2018-11-11 14:41 | CONS ---
Consult Date/Type/Reason Admit Date/Time November 06, 2018 at 03:31 Initial Consult Date 11/06/18 Requesting Provider: ZAHIRA BELLO MD Date/Time of Note DATE: 11/11/18 TIME: 14:40 Subjective NO acute events - no ectopy on tele - pt better, but still with pain - family not ready to take her home ROS: No fever, no chills, no nausea, no vomiting, no diarrhea/constipation No recent weight changes No chest pain, no PND, no orthopnea - mild SOB No dizziness, blurred vision No thirst, no heat or cold intolerance Objective Vitals Vital Signs Date Temp Pulse Resp B/P (MAP) Pulse Ox O2 O2 Flow FiO2 Time Delivery Rate 11/11/18 86 12:00 11/11/18 97.9 20 117/70 92 11:29 (86) 11/08/18 Nasal 04:00 Cannula 11/07/18 3.0 23:14 Intake and Output 11/10/18 11/10/18 11/11/18 1515:00 23:00 07:00 IntakeIntake Total 1350 ml BalanceBalance 1350 ml Exam General: WN/WD/NAD, AOx 3 HEENT: Unicetric/atraumatic/EOMI (follow commands) NECK: JVD elevated, no thyromegaly Lymph: no lymphadenopathy HEART: regular with no S3, II/ systolic murmur at apex LUNGS: Coarse sounds ABD: soft, NT, ND, +BS : Intact Neuro: non focal SKIN: chronic changes EXT: trace edema, hip pain Results/Medications Result Diagram: 11/11/18 0611/11/18 0602 Results 24 hrs Laboratory Tests Test 11/10/18 18:04 11/10/18 21:50 11/10/18 23:58 11/11/18 06:02 Bedside Glucose 168 221 H 184 White Blood Count 4.2 #L Red Blood Count 3.34 L Hemoglobin 9.4 L Hematocrit 28.7 L Mean Corpuscular 85.9 Volume Mean Corpuscular 28.1 L Hemoglobin Mean Corpuscular 32.8 Hemoglobin Concent Red Cell 12.5 Distribution Width Platelet Count 158 Mean Platelet Volume 9.9 Immature 0.500 H Granulocytes % Neutrophils % 59.3 Lymphocytes % 21.7 Monocytes % 12.1 H Eosinophils % 5.7 Basophils % 0.7 Nucleated Red Blood 0.0 Cells % Immature 0.020 Granulocytes # Neutrophils # 2.5 Lymphocytes # 0.9 Monocytes # 0.5 Eosinophils # 0.2 Basophils # 0.0 Nucleated Red Blood 0.0 Cells # Prothrombin Time 12.4 Prothrombin Time 1.0 Ratio INR International 0.91 Normalized Ratio Sodium Level 138 Potassium Level 4.4 Chloride Level 100 Carbon Dioxide Level 31 Anion Gap 7 Blood Urea Nitrogen 19 Creatinine 0.72 Est Glomerular > 60 Filtrat Rate mL/min Glucose Level 179 Calcium Level 9.1 Test 11/11/18 06:26 11/11/18 11:40 Bedside Glucose 213 208 Home Meds Active Scripts Ibuprofen* (Motrin*) 600 Mg Tab, 600 MG PO Q6H PRN for PAIN AND OR ELEVATED TEMP, #30 TAB Prov:TEZ SALCEDO MD 06/28/18 Reported Medications Clopidogrel Bisulfate (Clopidogrel) 75 Mg Tablet, 75 MG PO DAILY, #30 TAB 11/27/17 Hydralazine Hcl* (Hydralazine Hcl*) 10 Mg Tablet, 10 MG PO DAILY, #60 TAB 11/27/17 Pantoprazole* (Pantoprazole*) 40 Mg Tablet.dr, 40 MG PO AC BREAKFAST, TAB 11/27/17 Amlodipine Besylate* (Norvasc*) 5 Mg Tablet, 5 MG PO DAILY, TAB 11/27/17 Insulin Glargine,Hum.rec.anlog (Basaglar Kwikpen U-100) 100 Unit/1 Ml Insuln.pen, 6 UNIT SC QHS, EA 11/27/17 Medications Current Medications Ondansetron HCl (Zofran Inj) 4 mg Q6H PRN IV NAUSEA AND/OR VOMITING Last administered on 11/11/18at 14:24; Admin Dose 4 MG; Start 11/06/18 at 05:30 Pantoprazole (Protonix Tab) 40 mg AC BREAKFAST PO Last administered on 11/11/18at 06:24; Admin Dose 40 MG; Start 11/06/18 at 07:00 Insulin Glargine (Lantus) 6 units HS SC Last administered on 11/10/18at 21:56; Admin Dose 6 UNITS; Start 11/06/18 at 21:00 Miscellaneous Information 1 ea NOTE XX ; Start 11/06/18 at 05:30 Glucose (Glutose) 15 gm Q15M PRN PO DECREASED GLUCOSE; Start 11/06/18 at 05:30 Glucose (Glutose) 22.5 gm Q15M PRN PO DECREASED GLUCOSE; Start 11/06/18 at 05:30 Dextrose (D50w Syringe) 25 ml Q15M PRN IV DECREASED GLUCOSE; Start 11/06/18 at 05:30 Dextrose (D50w Syringe) 50 ml Q15M PRN IV DECREASED GLUCOSE; Start 11/06/18 at 05:30 Glucagon (Glucagen) 1 mg Q15M PRN IM DECREASED GLUCOSE; Start 11/06/18 at 05:30 Glucose (Glutose) 15 gm Q15M PRN BUCCAL DECREASED GLUCOSE; Start 11/06/18 at 05:30 Amlodipine Besylate (Norvasc) 5 mg BID PO Last administered on 11/11/18 08:14; Admin Dose 5 MG; Start 11/06/18 at 21:00 Hydralazine HCl (Apresoline) 25 mg BID PO Last administered on 11/11/18 08:14; Admin Dose 25 MG; Start 11/07/18 at 21:00 Oxycodone HCl (Roxicodone) 15 mg Q4H PRN PO .PAIN; Start 11/07/18 at 22:30 Oxycodone HCl (Roxicodone) 10 mg Q4H PRN PO .PAIN Last administered on 11/11/18 10:41; Admin Dose 10 MG; Start 11/07/18 at 22:30 Oxycodone HCl (Roxicodone) 5 mg Q4H PRN PO .PAIN Last administered on 11/09/18 08:31; Admin Dose 5 MG; Start 11/07/18 at 22:30 Hydromorphone HCl (Dilaudid) 1 mg Q3H PRN IV .BREAKTHROUGH PAIN Last administered on 11/10/18 10:15; Admin Dose 1 MG; Start 11/07/18 at 22:30 Acetaminophen (Tylenol Tab) 1,000 mg Q8 PO Last administered on 11/11/18 14:17; Admin Dose 1,000 MG; Start 11/08/18 at 06:00 Ondansetron HCl (Zofran Inj) 4 mg Q4H PRN IV NAUSEA/VOMITING Last administered on 11/11/18 04:49; Admin Dose 4 MG; Start 11/08/18 at 22:30 Gabapentin (Neurontin) 300 mg QHS PO Last administered on 11/10/18at 21:10; Admin Dose 300 MG; Start 11/08/18 at 21:00 Simethicone (Mylicon) 80 mg TID PRN PO .GAS; Start 11/07/18 at 22:30 Senna/Docusate Sodium (Senokot-S) 2 tab BID PRN PO .CONSTIPATION Last administered on 11/11/18at 14:17; Admin Dose 2 TAB; Start 11/07/18 at 22:30 Magnesium Hydroxide (Milk Of Mag) 30 ml HS PRN PO .CONSTIPATION Last administered on 11/11/18 00:31; Admin Dose 30 ML; Start 11/07/18 at 22:30 Bisacodyl (Dulcolax Supp) 10 mg DAILY PRN [place] .CONSTIPATION Last administered on 11/10/18at 15:24; Admin Dose 10 MG; Start 11/07/18 at 22:30 Sodium Biphosphate/ Sodium Phosphate (Fleet Enema) 133 ml DAILY PRN [place] .CONSTIPATION; Start 11/07/18 at 22:30 Diphenhydramine HCl (Benadryl) 25 mg Q4H PRN IV .ITCHING; Start 11/07/18 at 22:30 Naloxone HCl (Narcan) 0.2 mg Q2M PRN IV .RESP RATE; Start 11/07/18 at 22:30 IV Flush (NS 3 ml) 3 ml per protocol IV ; Start 11/07/18 at 22:30 Baclofen (Lioresal) 5 mg TID PO Last administered on 11/11/18at 14:17; Admin Dose 5 MG; Start 11/08/18 at 13:00 Enoxaparin Sodium (Lovenox) 40 mg DAILY SC Last administered on 11/11/18at 09:14; Admin Dose 40 MG; Start 11/09/18 at 09:00 Metoprolol Tartrate (Lopressor) 25 mg BID PO Last administered on 11/11/18at 08:13; Admin Dose 25 MG; Start 11/10/18 at 21:00 Metoprolol Tartrate (Lopressor) 5 mg Q4H PRN IV HR>110 Hold SBP<100; Start 11/10/18 at 12:30 Insulin Aspart (Novolog Insulin Pen) NOVOLOG *MILD* ALGORI... AC MEALS AND BEDTIME SC ; Start 11/11/18 at 17:25 Diagnostic Test (Pha) (Accu-Chek) 1 ea 02 XX ; Start 11/12/18 at 02:00 Assessment/Plan Hospital Course (Demo Recall) 1. Preoperative evaluation prior to lower extremity open reduction, internal fixation for a hip fracture.-no cp/sob. Neg trop x 2/Echo with NL EF and no sig valve abnl - tolerated procedure well. Still some pain - no edema - stable now, con't pain Rx. 2. Hypertension-improved control on increased dose of norvasc- better now - will follow. Treated. 3. Status post fall, mechanical by description - no ectopy on tele. 4. Diabetes mellitus- con't Rx. 5. History of cerebrovascular accident- defer to primary team TERESO ESTRADA MD November 11, 2018 14:41
[2018-11-11] MEDS ORDERED: MAGNESIUM CITRATE 300 ML BTL PO ONE (15:30)
[2018-11-11] MEDS ORDERED: NA PHOSPHATE/BIPHOS 133 ML ENEMA PR ONE (15:30)
--- NOTE | 2018-11-11 16:39 | PN ---
Date/Time of Note Date/Time of Note DATE: 11/11/18 TIME: 16:37 Assessment/Plan VTE Prophylaxis Risk score (from Ns)>0 risk: 7 SCD applied (from Ns): Yes Pharmacological prophylaxis: LMWH Lines/Catheters IV Catheter Type (from Nrs): Saline Lock Urinary Cath still in place: No Assessment/Plan Hospital Course Patient complains of nausea and vomiting and still constipation continue current bowel regimen we will add mag citrate and Fleet enema, if patient is continues to have nausea and vomiting will obtain GI consult. Pending evaluation for acute rehab. Assessment/Plan -Constipation continue bowel regimen - Displaced intertrochanteric fracture of the proximal left femur, mild varus angulation of fracture components. s/p surgery. Dr. Waggoner is following in orthopedic surgery consultation. -Leukocytosis most likely secondary to hip fracture, resolved. -Tachycardia, Dr. Banuelos is following in cardiology consultation -Hypertension, continue Norvasc and hydralazine. -Diabetes mellitus type 2. Continue Lantus and NovoLog. -History of cerebrovascular accident with left-sided weakness ischemic infarct. Further recommendations based on clinical course. Plan of care discussed with Dr. Potter. Result Diagram: 11/11/18 0602 11/11/18 0602 Results 24hrs Laboratory Tests Test 11/10/18 18:04 11/10/18 21:50 11/10/18 23:58 11/11/18 06:02 Bedside Glucose 168 221 H 184 White Blood Count 4.2 #L Red Blood Count 3.34 L Hemoglobin 9.4 L Hematocrit 28.7 L Mean Corpuscular 85.9 Volume Mean Corpuscular 28.1 L Hemoglobin Mean Corpuscular 32.8 Hemoglobin Concent Red Cell 12.5 Distribution Width Platelet Count 158 Mean Platelet Volume 9.9 Immature 0.500 H Granulocytes % Neutrophils % 59.3 Lymphocytes % 21.7 Monocytes % 12.1 H Eosinophils % 5.7 Basophils % 0.7 Nucleated Red Blood 0.0 Cells % Immature 0.020 Granulocytes # Neutrophils # 2.5 Lymphocytes # 0.9 Monocytes # 0.5 Eosinophils # 0.2 Basophils # 0.0 Nucleated Red Blood 0.0 Cells # Prothrombin Time 12.4 Prothrombin Time 1.0 Ratio INR International 0.91 Normalized Ratio Sodium Level 138 Potassium Level 4.4 Chloride Level 100 Carbon Dioxide Level 31 Anion Gap 7 Blood Urea Nitrogen 19 Creatinine 0.72 Est Glomerular > 60 Filtrat Rate mL/min Glucose Level 179 Calcium Level 9.1 Test 11/11/18 06:26 11/11/18 11:40 Bedside Glucose 213 208 Exam/Review of Systems Exam Vitals Vital Signs Date Temp Pulse Resp B/P (MAP) Pulse Ox O2 O2 Flow FiO2 Time Delivery Rate 11/11/18 98.6 61 20 122/78 92 16:09 (93) 11/08/18 Nasal 04:00 Cannula 11/07/18 3.0 23:14 Intake and Output 11/10/18 11/10/18 11/11/18 1515:00 23:00 07:00 IntakeIntake Total 1350 ml BalanceBalance 1350 ml Exam Constitutional: alert, oriented Respiratory: clear to auscultation Cardiovascular: nl pulses Gastrointestinal: soft, non-tender Musculoskeletal: other (Left hip s/p surgery) Extremities: normal pulses Neurological: nl mental status, other (Left-sided weakness) Results Results 24hrs Laboratory Tests Test 11/10/18 18:04 11/10/18 21:50 11/10/18 23:58 11/11/18 06:02 Bedside Glucose 168 221 H 184 White Blood Count 4.2 #L Red Blood Count 3.34 L Hemoglobin 9.4 L Hematocrit 28.7 L Mean Corpuscular 85.9 Volume Mean Corpuscular 28.1 L Hemoglobin Mean Corpuscular 32.8 Hemoglobin Concent Red Cell 12.5 Distribution Width Platelet Count 158 Mean Platelet Volume 9.9 Immature 0.500 H Granulocytes % Neutrophils % 59.3 Lymphocytes % 21.7 Monocytes % 12.1 H Eosinophils % 5.7 Basophils % 0.7 Nucleated Red Blood 0.0 Cells % Immature 0.020 Granulocytes # Neutrophils # 2.5 Lymphocytes # 0.9 Monocytes # 0.5 Eosinophils # 0.2 Basophils # 0.0 Nucleated Red Blood 0.0 Cells # Prothrombin Time 12.4 Prothrombin Time 1.0 Ratio INR International 0.91 Normalized Ratio Sodium Level 138 Potassium Level 4.4 Chloride Level 100 Carbon Dioxide Level 31 Anion Gap 7 Blood Urea Nitrogen 19 Creatinine 0.72 Est Glomerular > 60 Filtrat Rate mL/min Glucose Level 179 Calcium Level 9.1 Test 11/11/18 06:26 11/11/18 11:40 Bedside Glucose 213 208 Medications Medication Current Medications Ondansetron HCl (Zofran Inj) 4 mg Q6H PRN IV NAUSEA AND/OR VOMITING Last administered on 11/11/18at 14:24; Admin Dose 4 MG; Start 11/06/18 at 05:30 Pantoprazole (Protonix Tab) 40 mg AC BREAKFAST PO Last administered on 11/11/18at 06:24; Admin Dose 40 MG; Start 11/06/18 at 07:00 Insulin Glargine (Lantus) 6 units HS SC Last administered on 11/10/18at 21:56; Admin Dose 6 UNITS; Start 11/06/18 at 21:00 Miscellaneous Information 1 ea NOTE XX ; Start 11/06/18 at 05:30 Glucose (Glutose) 15 gm Q15M PRN PO DECREASED GLUCOSE; Start 11/06/18 at 05:30 Glucose (Glutose) 22.5 gm Q15M PRN PO DECREASED GLUCOSE; Start 11/06/18 at 05:30 Dextrose (D50w Syringe) 25 ml Q15M PRN IV DECREASED GLUCOSE; Start 11/06/18 at 05:30 Dextrose (D50w Syringe) 50 ml Q15M PRN IV DECREASED GLUCOSE; Start 11/06/18 at 05:30 Glucagon (Glucagen) 1 mg Q15M PRN IM DECREASED GLUCOSE; Start 11/06/18 at 05:30 Glucose (Glutose) 15 gm Q15M PRN BUCCAL DECREASED GLUCOSE; Start 11/06/18 at 05:30 Amlodipine Besylate (Norvasc) 5 mg BID PO Last administered on 11/11/18at 08:14; Admin Dose 5 MG; Start 11/06/18 at 21:00 Hydralazine HCl (Apresoline) 25 mg BID PO Last administered on 11/11/18at 08:14; Admin Dose 25 MG; Start 11/07/18 at 21:00 Oxycodone HCl (Roxicodone) 15 mg Q4H PRN PO .PAIN; Start 11/07/18 at 22:30 Oxycodone HCl (Roxicodone) 10 mg Q4H PRN PO .PAIN Last administered on at 16:22; Admin Dose 10 MG; Start 11/07/18 at 22:30 Oxycodone HCl (Roxicodone) 5 mg Q4H PRN PO .PAIN Last administered on 11/09/18 08:31; Admin Dose 5 MG; Start 11/07/18 at 22:30 Hydromorphone HCl (Dilaudid) 1 mg Q3H PRN IV .BREAKTHROUGH PAIN Last administered on 11/10/18 10:15; Admin Dose 1 MG; Start 11/07/18 at 22:30 Acetaminophen (Tylenol Tab) 1,000 mg Q8 PO Last administered on 11/11/18 14:17; Admin Dose 1,000 MG; Start 11/08/18 at 06:00 Ondansetron HCl (Zofran Inj) 4 mg Q4H PRN IV NAUSEA/VOMITING Last administered on 11/11/18 04:49; Admin Dose 4 MG; Start 11/08/18 at 22:30 Gabapentin (Neurontin) 300 mg QHS PO Last administered on 11/10/18 21:10; Admin Dose 300 MG; Start 11/08/18 at 21:00 Simethicone (Mylicon) 80 mg TID PRN PO .GAS; Start 11/07/18 at 22:30 Senna/Docusate Sodium (Senokot-S) 2 tab BID PRN PO .CONSTIPATION Last administered on 11/11/18 14:17; Admin Dose 2 TAB; Start 11/07/18 at 22:30 Magnesium Hydroxide (Milk Of Mag) 30 ml HS PRN PO .CONSTIPATION Last administered on 11/11/18 00:31; Admin Dose 30 ML; Start 11/07/18 at 22:30 Bisacodyl (Dulcolax Supp) 10 mg DAILY PRN [place] .CONSTIPATION Last administered on 11/10/18 15:24; Admin Dose 10 MG; Start 11/07/18 at 22:30 Sodium Biphosphate/ Sodium Phosphate (Fleet Enema) 133 ml DAILY PRN [place] .CONSTIPATION; Start 11/07/18 at 22:30 Diphenhydramine HCl (Benadryl) 25 mg Q4H PRN IV .ITCHING; Start 11/07/18 at 22:30 Naloxone HCl (Narcan) 0.2 mg Q2M PRN IV .RESP RATE; Start 11/07/18 at 22:30 IV Flush (NS 3 ml) 3 ml per protocol IV ; Start 11/07/18 at 22:30 Baclofen (Lioresal) 5 mg TID PO Last administered on 11/11/18at 14:17; Admin Dose 5 MG; Start 11/08/18 at 13:00 Enoxaparin Sodium (Lovenox) 40 mg DAILY SC Last administered on 11/11/18at 09:14; Admin Dose 40 MG; Start 11/09/18 at 09:00 Metoprolol Tartrate (Lopressor) 25 mg BID PO Last administered on 11/11/18at 08:13; Admin Dose 25 MG; Start 11/10/18 at 21:00 Metoprolol Tartrate (Lopressor) 5 mg Q4H PRN IV HR>110 Hold SBP<100; Start 11/10/18 at 12:30 Insulin Aspart (Novolog Insulin Pen) NOVOLOG *MILD* ALGORI... AC MEALS AND BEDTIME SC ; Start 11/11/18 at 17:25 Diagnostic Test (Pha) (Accu-Chek) 1 ea 02 XX ; Start 11/12/18 at 02:00 LESLIE SNELL November 11, 2018 16:39
[2018-11-11] MEDS: GABAPENTIN 300 MG CAP PO SCH (20:38)
[2018-11-11] MEDS: INSULIN GLARGINE [LANTus] (100 UNITS/ML) SYG SC SCH (21:42)
[2018-11-12] VITALS (10 sets, daily range): BP systolic 111–162; BP diastolic 66–85; PULSE 82–123; RESP 18
[2018-11-12] MEDS: METOCLOPRAMIDE 10 MG INJ IV PRN ×2 (00:26→06:23)
[2018-11-12] MEDS: oxyCODONE 5 MG TAB PO PRN ×3 (00:26→12:00)
[2018-11-12] MEDS: SENNA/DOCUSATE NA (8.6MG/50MG) TAB PO PRN (00:26)
[2018-11-12] MEDS: ACCU-CHEK XX SCH (01:22)
[2018-11-12] MEDS: ACETAMINOPHEN 500 MG TAB PO SCH ×3 (06:24→21:58)
[2018-11-12] MEDS: PANTOPRAZOLE (EC) 40 MG TAB PO SCH (06:24)
--- NOTE | 2018-11-12 08:42 | PN ---
Date/Time of Note Date/Time of Note DATE: 11/12/18 TIME: 08:39 Assessment/Plan Lines/Catheters IV Catheter Type (from Nrsg): Saline Lock Rodriguez in Place (from Nrsg): No Assessment/Plan Chief Complaint/Hosp Course Postop day #5 status post IM nail left IT fracture. Patient is a good candidate for evaluation for acute rehab unit as she was having significant progress with her post CVA rehabilitation prior to her fall and hip fracture. Patient continues to be nauseated and vomited. Work-up for bowel obstruction by medicine team has been negative so far. Reviewed bowel care orders with nurse today. Continue to monitor hemoglobin Carbohydrate controlled diet Pain control Weight-bear as tolerated PT/OT DVT prophylaxis: SCDs bilaterally. Lovenox 40 mg daily x6 weeks Acute rehab unit consult placed Discharge planning Subjective 24 Hr Interval Summary Patient doing well No acute events overnight Pain is moderately controlled. Patient continues to have significant nausea and vomiting and constipation. Work-up for bowel obstruction by primary team was negative. Exam/Review of Systems Vital Signs Vitals Vital Signs Date Temp Pulse Resp B/P (MAP) Pulse Ox O2 O2 Flow FiO2 Time Delivery Rate 11/12/18 92 08:29 11/12/18 98.7 18 123/66 92 07:07 (85) Intake and Output 11/11/18 11/11/18 11/12/18 1515:00 23:00 07:00 IntakeIntake Total 400 ml 1250 ml BalanceBalance 400 ml 1250 ml Exam Free Text/Dictation Left lower extremity: Dressing: clean, dry, and intact, no erythema sensation to the dorsal aspect of her foot appears to be mostly intact. Sensation to the remainder of the foot is not intact to light touch which is the patient's baseline. There is no motor function of the foot and lower extremity. Dorsalis Pedis pulse +2, Brisk capillary refill. Compartments are soft. Calves non-tender to palpation bilaterally. Results Result Diagram: 11/12/18 0707 11/12/18 0707 DANILO BLISS MD November 12, 2018 08:42
[2018-11-12] MEDS: BACLOFEN 10 MG TAB PO SCH ×3 (09:04→20:36)
[2018-11-12] MEDS: AMLODIPINE 5 MG TAB PO SCH ×2 (09:04→20:35)
[2018-11-12] MEDS: METOPROLOL 25 MG TAB PO SCH ×2 (09:05→20:35)
[2018-11-12] MEDS: INSULIN ASPART [NOVOLOG] 3 ML PEN SC SCH ×4 (09:32→20:52)
[2018-11-12] MEDS: ENOXAPARIN 40 MG/0.4 ML SYG SC SCH (09:33)
--- NOTE | 2018-11-12 13:42 | CONS ---
Assessment/Plan Assessment/Plan Hospital Course (Demo Recall) IMPRESSION: 1. Preoperative evaluation prior to lower extremity open reduction, internal fixation for a hip fracture.-no cp/sob. Neg trop x 2/Echo with NL EF and no sig valve abnl. 2. Hypertension-improved control on increased dose of norvasc 3. Status post fall, mechanical by description. 4. Diabetes mellitus. 5. History of cerebrovascular accident. 6. N/V-post-op Recc: -Continue baseline norvasc and hydralazine with reasonable BP control -Continue BB -pain control -Follow Blood sugars closely -RX and continue to evaluate N/V Consultation Date/Type/Reason Admit Date/Time November 06, 2018 at 03:31 Initial Consult Date 11/06/18 Type of Consult Cardiology Reason for Consultation HTN/preop Requesting Provider: ZAHIRA BELLO MD Date/Time of Note DATE: 11/12/18 TIME: 13:40 Exam/Review of Systems Vital Signs Vitals Vital Signs Date Temp Pulse Resp B/P (MAP) Pulse Ox O2 O2 Flow FiO2 Time Delivery Rate 11/12/18 82 12:11 11/12/18 98.4 18 132/80 93 11:19 (97) Intake and Output 11/11/18 11/11/18 11/12/18 1515:00 23:00 07:00 IntakeIntake Total 400 ml 1250 ml BalanceBalance 400 ml 1250 ml Exam Exam Review of Systems: CONSTITUTIONAL: No fevers, chills. PULMONARY: No sob CARDIOVASCULAR: No chest pain/palpitations GASTROINTESTINAL: Positive nausea/vomiting. GENITOURINARY: No hematuria/dysuria. MUSCULOSKELETAL: No myagias/arthalgias. PSYCHIATRIC: The patient denies depression. NEUROLOGIC: No weakness Constitutional: alert, oriented Psych: no complaints Head: normocephalic ENMT: mucosa pink and moist Neck: supple, jvd (9 cm water) Respiratory: diminished breath sounds Cardiovascular: regular rate and rhythm Gastrointestinal: soft, non-tender Musculoskeletal: muscle tone (normal) Extremities: edema (none) Neurological: other (No focal deficits) Labs Result Diagram: 11/12/18 0707 11/12/18 0707 Results 24hrs Laboratory Tests Test 11/11/18 17:25 11/11/18 21:34 11/12/18 01:20 11/12/18 07:07 Bedside Glucose 155 175 154 White Blood Count 4.4 L Red Blood Count 3.39 L Hemoglobin 9.5 L Hematocrit 29.1 L Mean Corpuscular 85.8 Volume Mean Corpuscular 28.0 L Hemoglobin Mean Corpuscular 32.6 Hemoglobin Concent Red Cell 12.6 Distribution Width Platelet Count 187 Mean Platelet Volume 9.3 Immature 0.900 H Granulocytes % Neutrophils % 52.2 Lymphocytes % 29.5 Monocytes % 11.3 H Eosinophils % 5.4 Basophils % 0.7 Nucleated Red Blood 0.0 Cells % Immature 0.040 H Granulocytes # Neutrophils # 2.3 Lymphocytes # 1.3 Monocytes # 0.5 Eosinophils # 0.2 Basophils # 0.0 Nucleated Red Blood 0.0 Cells # Prothrombin Time 12.6 Prothrombin Time 1.0 Ratio INR International 0.93 Normalized Ratio Sodium Level 139 Potassium Level 4.2 Chloride Level 102 Carbon Dioxide Level 31 Anion Gap 6 Blood Urea Nitrogen 14 Creatinine 0.60 Est Glomerular > 60 Filtrat Rate mL/min Glucose Level 191 Calcium Level 9.0 Test 11/12/18 09:01 11/12/18 11:58 Bedside Glucose 198 186 Medications Medications Current Medications Ondansetron HCl (Zofran Inj) 4 mg Q6H PRN IV NAUSEA AND/OR VOMITING Last administered on 11/11/18at 14:24; Admin Dose 4 MG; Start 11/06/18 at 05:30 Pantoprazole (Protonix Tab) 40 mg AC BREAKFAST PO Last administered on 11/12/18at 06:24; Admin Dose 40 MG; Start 11/06/18 at 07:00 Miscellaneous Information 1 ea NOTE XX ; Start 11/06/18 at 05:30 Glucose (Glutose) 15 gm Q15M PRN PO DECREASED GLUCOSE; Start 11/06/18 at 05:30 Glucose (Glutose) 22.5 gm Q15M PRN PO DECREASED GLUCOSE; Start 11/06/18 at 05:30 Dextrose (D50w Syringe) 25 ml Q15M PRN IV DECREASED GLUCOSE; Start 11/06/18 at 05:30 Dextrose (D50w Syringe) 50 ml Q15M PRN IV DECREASED GLUCOSE; Start 11/06/18 at 05:30 Glucagon (Glucagen) 1 mg Q15M PRN IM DECREASED GLUCOSE; Start 11/06/18 at 05:30 Glucose (Glutose) 15 gm Q15M PRN BUCCAL DECREASED GLUCOSE; Start 11/06/18 at 05:30 Amlodipine Besylate (Norvasc) 5 mg BID PO Last administered on 11/12/18 09:04; Admin Dose 5 MG; Start 11/06/18 at 21:00 Hydralazine HCl (Apresoline) 25 mg BID PO Last administered on 11/12/18 09:04; Admin Dose 25 MG; Start 11/07/18 at 21:00 Oxycodone HCl (Roxicodone) 15 mg Q4H PRN PO .PAIN; Start 11/07/18 at 22:30 Oxycodone HCl (Roxicodone) 10 mg Q4H PRN PO .PAIN Last administered on 11/12/18 12:00; Admin Dose 10 MG; Start 11/07/18 at 22:30 Oxycodone HCl (Roxicodone) 5 mg Q4H PRN PO .PAIN Last administered on 11/09/18 08:31; Admin Dose 5 MG; Start 11/07/18 at 22:30 Hydromorphone HCl (Dilaudid) 1 mg Q3H PRN IV .BREAKTHROUGH PAIN Last administered on 11/10/18 10:15; Admin Dose 1 MG; Start 11/07/18 at 22:30 Acetaminophen (Tylenol Tab) 1,000 mg Q8 PO Last administered on 11/12/18 06:24; Admin Dose 1,000 MG; Start 11/08/18 at 06:00 Ondansetron HCl (Zofran Inj) 4 mg Q4H PRN IV NAUSEA/VOMITING Last administered on 11/11/18 20:31; Admin Dose 4 MG; Start 11/08/18 at 22:30 Gabapentin (Neurontin) 300 mg QHS PO Last administered on 11/11/18 20:38; Admin Dose 300 MG; Start 11/08/18 at 21:00 Simethicone (Mylicon) 80 mg TID PRN PO .GAS; Start 11/07/18 at 22:30 Magnesium Hydroxide (Milk Of Mag) 30 ml HS PRN PO .CONSTIPATION Last administered on 11/11/18 00:31; Admin Dose 30 ML; Start 11/07/18 at 22:30 Bisacodyl (Dulcolax Supp) 10 mg DAILY PRN [place] .CONSTIPATION Last administered on 11/10/18at 15:24; Admin Dose 10 MG; Start 11/07/18 at 22:30 Sodium Biphosphate/ Sodium Phosphate (Fleet Enema) 133 ml DAILY PRN [place] .CONSTIPATION; Start 11/07/18 at 22:30 Diphenhydramine HCl (Benadryl) 25 mg Q4H PRN IV .ITCHING; Start 11/07/18 at 22:30 Naloxone HCl (Narcan) 0.2 mg Q2M PRN IV .RESP RATE; Start 11/07/18 at 22:30 IV Flush (NS 3 ml) 3 ml per protocol IV ; Start 11/07/18 at 22:30 Baclofen (Lioresal) 5 mg TID PO Last administered on 11/12/18 09:04; Admin Dose 5 MG; Start 11/08/18 at 13:00 Enoxaparin Sodium (Lovenox) 40 mg DAILY SC Last administered on 11/12/18 09:33; Admin Dose 40 MG; Start 11/09/18 at 09:00 Metoprolol Tartrate (Lopressor) 25 mg BID PO Last administered on 11/12/18 09:05; Admin Dose 25 MG; Start 11/10/18 at 21:00 Metoprolol Tartrate (Lopressor) 5 mg Q4H PRN IV HR>110 Hold SBP<100; Start 11/10/18 at 12:30 Insulin Aspart (Novolog Insulin Pen) NOVOLOG *MILD* ALGORI... AC MEALS AND BEDTIME SC Last administered on 11/12/18at 12:12; Admin Dose 2 UNIT; Start 11/11/18 at 17:25 Diagnostic Test (Pha) (Accu-Chek) 1 ea 02 XX Last administered on 11/12/18at 01:22; Admin Dose 1 EA; Start 11/12/18 at 02:00 Insulin Glargine (Lantus) 10 units HS SC Last administered on 11/11/18at 21:42; Admin Dose 10 UNITS; Start 11/11/18 at 21:00 Metoclopramide HCl (Reglan) 10 mg Q6H PRN IV NAUSEA AND/OR VOMITING Last administered on 11/12/18at 06:23; Admin Dose 10 MG; Start 11/11/18 at 23:30 Senna/Docusate Sodium (Senokot-S) 2 tab BID PO ; Start 11/12/18 at 21:00 RUSS PEPE November 12, 2018 13:42
--- NOTE | 2018-11-12 14:04 | PN ---
Date/Time of Note Date/Time of Note DATE: 11/12/18 TIME: 13:55 Assessment/Plan VTE Prophylaxis Risk score (from Ns)>0 risk: 7 SCD applied (from Ns): Yes Pharmacological prophylaxis: LMWH Lines/Catheters IV [facility] Type [facility]from [facility] Saline Lock Urinary Cath still in place: No Assessment/Plan Hospital Course Patient continues to have nausea and vomiting, cannot keep any food down. Patient is still constipated and is found in spite of Senokot milk citrate and Fleet enema. KUB noted. Dr. Conway is asked to see patient in gastroenterology consultation. Will obtain liver function test, amylase and lipase. Continue PT. plan of care discussed with patient patient daughter and patient at the bedside. Assessment/Plan - Constipation continue bowel regimen - Displaced intertrochanteric fracture of the proximal left femur, mild varus angulation of fracture components. s/p surgery. Dr. Waggoner is following in orthopedic surgery consultation. -Leukocytosis most likely secondary to hip fracture, resolved. -Tachycardia, Dr. Banuelos is following in cardiology consultation -Hypertension, continue Norvasc and hydralazine. -Diabetes mellitus type 2. Continue Lantus and NovoLog. -History of cerebrovascular accident with ischemic infarct with left-sided weakness. Disposition: pending evaluation and insurance approval for ARU. Further recommendations based on clinical course. Plan of care discussed with Dr. Potter. Result Diagram: 11/12/18 0707 11/12/18 0707 Results 24hrs Laboratory Tests Test 11/11/18 17:25 11/11/18 21:34 11/12/18 01:20 11/12/18 07:07 Bedside Glucose 155 175 154 White Blood Count 4.4 L Red Blood Count 3.39 L Hemoglobin 9.5 L Hematocrit 29.1 L Mean Corpuscular 85.8 Volume Mean Corpuscular 28.0 L Hemoglobin Mean Corpuscular 32.6 Hemoglobin Concent Red Cell 12.6 Distribution Width Platelet Count 187 Mean Platelet Volume 9.3 Immature 0.900 H Granulocytes % Neutrophils % 52.2 Lymphocytes % 29.5 Monocytes % 11.3 H Eosinophils % 5.4 Basophils % 0.7 Nucleated Red Blood 0.0 Cells % Immature 0.040 H Granulocytes # Neutrophils # 2.3 Lymphocytes # 1.3 Monocytes # 0.5 Eosinophils # 0.2 Basophils # 0.0 Nucleated Red Blood 0.0 Cells # Prothrombin Time 12.6 Prothrombin Time 1.0 Ratio INR International 0.93 Normalized Ratio Sodium Level 139 Potassium Level 4.2 Chloride Level 102 Carbon Dioxide Level 31 Anion Gap 6 Blood Urea Nitrogen 14 Creatinine 0.60 Est Glomerular > 60 Filtrat Rate mL/min Glucose Level 191 Calcium Level 9.0 Test 11/12/18 09:01 11/12/18 11:58 Bedside Glucose 198 186 Exam/Review of Systems Exam Vitals Vital Signs Date Temp Pulse Resp B/P (MAP) Pulse Ox O2 O2 Flow FiO2 Time Delivery Rate 11/12/18 82 12:11 11/12/18 98.4 18 132/80 93 11:19 (97) Intake and Output 11/11/18 11/11/18 11/12/18 1515:00 23:00 07:00 IntakeIntake Total 400 ml 1250 ml BalanceBalance 400 ml 1250 ml Exam Constitutional: alert, oriented Respiratory: clear to auscultation Cardiovascular: nl pulses Gastrointestinal: soft, non-tender Musculoskeletal: other (Left hip s/p surgery) Extremities: normal pulses Neurological: nl mental status, other (Left-sided weakness) Results Results 24hrs Laboratory Tests Test 11/11/18 17:25 11/11/18 21:34 11/12/18 01:20 11/12/18 07:07 Bedside Glucose 155 175 154 White Blood Count 4.4 L Red Blood Count 3.39 L Hemoglobin 9.5 L Hematocrit 29.1 L Mean Corpuscular 85.8 Volume Mean Corpuscular 28.0 L Hemoglobin Mean Corpuscular 32.6 Hemoglobin Concent Red Cell 12.6 Distribution Width Platelet Count 187 Mean Platelet Volume 9.3 Immature 0.900 H Granulocytes % Neutrophils % 52.2 Lymphocytes % 29.5 Monocytes % 11.3 H Eosinophils % 5.4 Basophils % 0.7 Nucleated Red Blood 0.0 Cells % Immature 0.040 H Granulocytes # Neutrophils # 2.3 Lymphocytes # 1.3 Monocytes # 0.5 Eosinophils # 0.2 Basophils # 0.0 Nucleated Red Blood 0.0 Cells # Prothrombin Time 12.6 Prothrombin Time 1.0 Ratio INR International 0.93 Normalized Ratio Sodium Level 139 Potassium Level 4.2 Chloride Level 102 Carbon Dioxide Level 31 Anion Gap 6 Blood Urea Nitrogen 14 Creatinine 0.60 Est Glomerular > 60 Filtrat Rate mL/min Glucose Level 191 Calcium Level 9.0 Test 11/12/18 09:01 11/12/18 11:58 Bedside Glucose 198 186 Medications Medication Current Medications Ondansetron HCl (Zofran Inj) 4 mg Q6H PRN IV NAUSEA AND/OR VOMITING Last administered on 11/11/18at 14:24; Admin Dose 4 MG; Start 11/06/18 at 05:30 Pantoprazole (Protonix Tab) 40 mg AC BREAKFAST PO Last administered on 11/12/18at 06:24; Admin Dose 40 MG; Start 11/06/18 at 07:00 Miscellaneous Information 1 ea NOTE XX ; Start 11/06/18 at 05:30 Glucose (Glutose) 15 gm Q15M PRN PO DECREASED GLUCOSE; Start 11/06/18 at 05:30 Glucose (Glutose) 22.5 gm Q15M PRN PO DECREASED GLUCOSE; Start 11/06/18 at 05:30 Dextrose (D50w Syringe) 25 ml Q15M PRN IV DECREASED GLUCOSE; Start 11/06/18 at 05:30 Dextrose (D50w Syringe) 50 ml Q15M PRN IV DECREASED GLUCOSE; Start 11/06/18 at 05:30 Glucagon (Glucagen) 1 mg Q15M PRN IM DECREASED GLUCOSE; Start 11/06/18 at 05:30 Glucose (Glutose) 15 gm Q15M PRN BUCCAL DECREASED GLUCOSE; Start 11/06/18 at 05:30 Amlodipine Besylate (Norvasc) 5 mg BID PO Last administered on 11/12/18at 09:04; Admin Dose 5 MG; Start 11/06/18 at 21:00 Hydralazine HCl (Apresoline) 25 mg BID PO Last administered on 11/12/18at 09:04; Admin Dose 25 MG; Start 11/07/18 at 21:00 Oxycodone HCl (Roxicodone) 15 mg Q4H PRN PO .PAIN; Start 11/07/18 at 22:30 Oxycodone HCl (Roxicodone) 10 mg Q4H PRN PO .PAIN Last administered on 11/12/18at 12:00; Admin Dose 10 MG; Start 11/07/18 at 22:30 Oxycodone HCl (Roxicodone) 5 mg Q4H PRN PO .PAIN Last administered on 11/09/18 08:31; Admin Dose 5 MG; Start 11/07/18 at 22:30 Hydromorphone HCl (Dilaudid) 1 mg Q3H PRN IV .BREAKTHROUGH PAIN Last administered on 11/10/18 10:15; Admin Dose 1 MG; Start 11/07/18 at 22:30 Acetaminophen (Tylenol Tab) 1,000 mg Q8 PO Last administered on 11/12/18 13:40; Admin Dose 1,000 MG; Start 11/08/18 at 06:00 Ondansetron HCl (Zofran Inj) 4 mg Q4H PRN IV NAUSEA/VOMITING Last administered on 11/11/18 20:31; Admin Dose 4 MG; Start 11/08/18 at 22:30 Gabapentin (Neurontin) 300 mg QHS PO Last administered on 11/11/18 20:38; Admin Dose 300 MG; Start 11/08/18 at 21:00 Simethicone (Mylicon) 80 mg TID PRN PO .GAS; Start 11/07/18 at 22:30 Magnesium Hydroxide (Milk Of Mag) 30 ml HS PRN PO .CONSTIPATION Last administered on 11/11/18 00:31; Admin Dose 30 ML; Start 11/07/18 at 22:30 Bisacodyl (Dulcolax Supp) 10 mg DAILY PRN [place] .CONSTIPATION Last administered on 11/10/18 15:24; Admin Dose 10 MG; Start 11/07/18 at 22:30 Sodium Biphosphate/ Sodium Phosphate (Fleet Enema) 133 ml DAILY PRN [place] .CONSTIPATION; Start 11/07/18 at 22:30 Diphenhydramine HCl (Benadryl) 25 mg Q4H PRN IV .ITCHING; Start 11/07/18 at 22:30 Naloxone HCl (Narcan) 0.2 mg Q2M PRN IV .RESP RATE; Start 11/07/18 at 22:30 IV Flush (NS 3 ml) 3 ml per protocol IV ; Start 11/07/18 at 22:30 Baclofen (Lioresal) 5 mg TID PO Last administered on 11/12/18 13:40; Admin Dose 5 MG; Start 11/08/18 at 13:00 Enoxaparin Sodium (Lovenox) 40 mg DAILY SC Last administered on 11/12/18 09:33; Admin Dose 40 MG; Start 11/09/18 at 09:00 Metoprolol Tartrate (Lopressor) 25 mg BID PO Last administered on 11/12/18 09:05; Admin Dose 25 MG; Start 11/10/18 at 21:00 Metoprolol Tartrate (Lopressor) 5 mg Q4H PRN IV HR>110 Hold SBP<100; Start 11/10/18 at 12:30 Insulin Aspart (Novolog Insulin Pen) NOVOLOG *MILD* ALGORI... AC MEALS AND BEDTIME SC Last administered on 11/12/18 12:12; Admin Dose 2 UNIT; Start 11/11/18 at 17:25 Diagnostic Test (Pha) (Accu-Chek) 1 ea 02 XX Last administered on 11/12/18at 01:22; Admin Dose 1 EA; Start 11/12/18 at 02:00 Insulin Glargine (Lantus) 10 units HS SC Last administered on 11/11/18 21:42; Admin Dose 10 UNITS; Start 11/11/18 at 21:00 Metoclopramide HCl (Reglan) 10 mg Q6H PRN IV NAUSEA AND/OR VOMITING Last administered on 11/12/18 06:23; Admin Dose 10 MG; Start 11/11/18 at 23:30 Senna/Docusate Sodium (Senokot-S) 2 tab BID PO ; Start 11/12/18 at 21:00 LESLIE SNELL November 12, 2018 14:04
[2018-11-12] MEDS ORDERED: MAGNESIUM CITRATE 300 ML BTL PO STA (17:40)
[2018-11-12] MEDS: METHYLNALTREXONE 12 MG/0.6 ML VIAL SC SCH (18:48)
[2018-11-12] MEDS: METOCLOPRAMIDE 10 MG INJ IV SCH (18:49)
--- NOTE | 2018-11-12 20:21 | CONS ---
DATE OF ADMISSION: 11/06/2018 DATE OF CONSULTATION: TYPE OF CONSULTATION: Gastroenterology. HISTORY OF PRESENT ILLNESS: The patient is a 53-year-old female with a history of CVA, left-sided we akness secondary to ischemic infarct, craniotomy secondary to right cerebral edema in 06/2017, hypert ension, diabetes mellitus, presented to the ER with the left hip . The patient had a second mec hanical fall from the wheelchair. X-ray showed intertrochanteric fracture of the proximal left femur . The patient was seen by the orthopedic surgeon and had orthopedic surgery and she was recovering d uring her stay in the hospital. However, yesterday she had nausea, vomiting and has not had a bowel movement, so KUB was done which showed constipated colon and ileus, so GI consult was called in. PAST MEDICAL HISTORY: Diabetes mellitus type 2, hypertension, CVA, displaced intertrochanteric fract ure of the left femur requiring surgery. ALLERGIES: NONE. SOCIAL HISTORY: She does not smoke or drink. PHYSICAL EXAMINATION: VITAL SIGNS: Stable. ABDOMEN: Benign. GENERAL: She is alert, awake, not in distress. EXTREMITIES: No edema. Left leg is immobilized. CENTRAL NERVOUS SYSTEM: Except for the left-sided weakness grossly within normal limits. She is lauren ented to time, place and space. IMPRESSION: 1. Left intertrochanteric fracture of the proximal left femur, status post surgery. 2. Hypertension. 3. Diabetes mellitus. 4. Cerebrovascular accident with left-sided weakness. 5. Ileus and severe constipation. PLAN: Give the Reglan round the clock for her nausea and vomiting. We will give her 1 bottle of mag nesium oxide and Relistor injection. Thank you once again for your referral. Dictated By: CHADWICK FISHER MD PJ/NTS Conf#: [id number] DID#: [id number] CC: DANILO BLISS MD; ZAHIRA BELLO MD;*EndCC*
[2018-11-12] MEDS: GABAPENTIN 300 MG CAP PO SCH (20:34)
[2018-11-12] MEDS: SENNA/DOCUSATE NA (8.6MG/50MG) TAB PO SCH (20:34)
[2018-11-12] MEDS: INSULIN GLARGINE [LANTus] (100 UNITS/ML) SYG SC SCH (20:51)
[2018-11-13 00:10] VITALS: BP 119/75; PULSE 81; RESP 18
[2018-11-13] MEDS: ACCU-CHEK XX SCH (02:00)
[2018-11-13 04:19] VITALS: BP 137/83; PULSE 86; RESP 18
[2018-11-13] MEDS: ACETAMINOPHEN 500 MG TAB PO SCH ×3 (05:37→21:47)
[2018-11-13] MEDS: METOCLOPRAMIDE 10 MG INJ IV SCH ×5 (05:38→23:49)
[2018-11-13] MEDS: INSULIN ASPART [NOVOLOG] 3 ML PEN SC SCH ×4 (07:25→22:05)
[2018-11-13 07:56] VITALS: BP 196/81; PULSE 93; RESP 18
[2018-11-13] MEDS: PANTOPRAZOLE (EC) 40 MG TAB PO SCH (08:19)
[2018-11-13] MEDS: BACLOFEN 10 MG TAB PO SCH ×3 (08:21→21:50)
[2018-11-13] MEDS: METOPROLOL 25 MG TAB PO SCH ×2 (08:21→21:47)
[2018-11-13] MEDS: AMLODIPINE 5 MG TAB PO SCH ×2 (08:22→21:46)
[2018-11-13] MEDS: SENNA/DOCUSATE NA (8.6MG/50MG) TAB PO SCH ×2 (08:22→21:46)
[2018-11-13] MEDS: ENOXAPARIN 40 MG/0.4 ML SYG SC SCH (08:33)
--- NOTE | 2018-11-13 10:28 | CONS ---
Assessment/Plan Assessment/Plan Assessment/Plan (Daily) IMPRESSION: 1. Left intertrochanteric fracture of the proximal left femur, status post surgery. 2. Hypertension. 3. Diabetes mellitus. 4. Cerebrovascular accident with left-sided weakness. 5. Ileus and severe constipation. Plan Continue A[facility] Consultation Date/Type/Reason Admit Date/Time November 06, 2018 at 03:31 Initial Consult Date 11/06/18 Requesting Provider: ZAHIRA BELLO MD Date/Time of Note DATE: 11/13/18 TIME: 10:27 24 HR Interval Summary Free Text/Dictation Patient finally had a good bowel movements Exam/Review of Systems Exam Vitals Vital Signs Date Temp Pulse Resp B/P (MAP) Pulse Ox O2 O2 Flow FiO2 Time Delivery Rate 11/13/18 98.5 93 18 196/81 93 07:56 (119) Intake and Output 11/12/18 11/12/18 11/13/18 1515:00 23:00 07:00 IntakeIntake Total 200 ml 700 ml 500 ml BalanceBalance 200 ml 700 ml 500 ml Constitutional: alert, oriented, well developed Psych: no complaints, nl mood/affect Head: normocephalic, atraumatic Eyes: nl conjunctiva, EOMI, nl lids, nl sclera, PERRL ENMT: nl external ears & nose, nl lips & teeth, nl nasal mucosa & septum Neck: supple, non-tender Respiratory: clear to auscultation, normal air movement Cardiovascular: regular rate and rhythm, nl pulses Gastrointestinal: soft, nl liver, spleen, non-tender Musculoskeletal: nl extremities to inspection, nl gait and stance Extremities: normal pulses Neurological: [employer] II-XII intact, nl mental status, nl speech, nl strength Skin: nl turgor; No rash or lesions Lymph: nl lymph nodes Results Result Diagram: 11/13/1814 11/13/1814 Results 24hrs Laboratory Tests Test 11/12/18 11:58 11/12/18 18:50 11/12/18 20:45 11/13/18 06:14 Bedside Glucose 186 132 146 White Blood Count 4.9 Red Blood Count 3.57 L Hemoglobin 10.1 L Hematocrit 30.8 L Mean Corpuscular 86.3 Volume Mean Corpuscular 28.3 L Hemoglobin Mean Corpuscular 32.8 Hemoglobin Concent Red Cell 12.5 Distribution Width Platelet Count 241 # Mean Platelet Volume 9.0 Immature 1.600 H Granulocytes % Neutrophils % 58.0 Lymphocytes % 24.5 Monocytes % 11.6 H Eosinophils % 3.7 Basophils % 0.6 Nucleated Red Blood 0.4 H Cells % Immature 0.080 H Granulocytes # Neutrophils # 2.8 Lymphocytes # 1.2 Monocytes # 0.6 Eosinophils # 0.2 Basophils # 0.0 Nucleated Red Blood 0.0 Cells # Prothrombin Time 12.1 Prothrombin Time 0.9 Ratio INR International 0.89 Normalized Ratio Sodium Level 139 Potassium Level 4.3 Chloride Level 100 Carbon Dioxide Level 33 H Anion Gap 6 Blood Urea Nitrogen 15 Creatinine 0.59 Est Glomerular > 60 Filtrat Rate mL/min Glucose Level 149 # Calcium Level 9.3 Total Bilirubin 0.8 Direct Bilirubin 0.00 Indirect Bilirubin 0.8 Aspartate Amino 145 H Transf (AST/SGOT) Alanine 120 H Aminotransferase (AL T/SGPT) Alkaline Phosphatase 262 H Total Protein 6.6 Albumin 3.6 Globulin 3.00 Albumin/Globulin 1.20 Ratio Test 11/13/18 08:16 Bedside Glucose 132 Medications Medication Current Medications Ondansetron HCl (Zofran Inj) 4 mg Q6H PRN IV NAUSEA AND/OR VOMITING Last administered on 11/11/18at 14:24; Admin Dose 4 MG; Start 11/06/18 at 05:30 Pantoprazole (Protonix Tab) 40 mg AC BREAKFAST PO Last administered on at 08:19; Admin Dose 40 MG; Start 11/06/18 at 07:00 Miscellaneous Information 1 ea NOTE XX ; Start 11/06/18 at 05:30 Glucose (Glutose) 15 gm Q15M PRN PO DECREASED GLUCOSE; Start 11/06/18 at 05:30 Glucose (Glutose) 22.5 gm Q15M PRN PO DECREASED GLUCOSE; Start 11/06/18 at 05:30 Dextrose (D50w Syringe) 25 ml Q15M PRN IV DECREASED GLUCOSE; Start 11/06/18 at 05:30 Dextrose (D50w Syringe) 50 ml Q15M PRN IV DECREASED GLUCOSE; Start 11/06/18 at 05:30 Glucagon (Glucagen) 1 mg Q15M PRN IM DECREASED GLUCOSE; Start 11/06/18 at 05:30 Glucose (Glutose) 15 gm Q15M PRN BUCCAL DECREASED GLUCOSE; Start 11/06/18 at 05:30 Amlodipine Besylate (Norvasc) 5 mg BID PO Last administered on 11/13/18 08:22; Admin Dose 5 MG; Start 11/06/18 at 21:00 Hydralazine HCl (Apresoline) 25 mg BID PO Last administered on 11/13/18 08:22; Admin Dose 25 MG; Start 11/07/18 at 21:00 Oxycodone HCl (Roxicodone) 15 mg Q4H PRN PO .PAIN; Start 11/07/18 at 22:30 Oxycodone HCl (Roxicodone) 10 mg Q4H PRN PO .PAIN Last administered on 11/12/18 12:00; Admin Dose 10 MG; Start 11/07/18 at 22:30 Oxycodone HCl (Roxicodone) 5 mg Q4H PRN PO .PAIN Last administered on 11/09/18 08:31; Admin Dose 5 MG; Start 11/07/18 at 22:30 Hydromorphone HCl (Dilaudid) 1 mg Q3H PRN IV .BREAKTHROUGH PAIN Last administered on 11/10/18 10:15; Admin Dose 1 MG; Start 11/07/18 at 22:30 Acetaminophen (Tylenol Tab) 1,000 mg Q8 PO Last administered on 11/13/18 05:37; Admin Dose 1,000 MG; Start 11/08/18 at 06:00 Ondansetron HCl (Zofran Inj) 4 mg Q4H PRN IV NAUSEA/VOMITING Last administered on 11/11/18 20:31; Admin Dose 4 MG; Start 11/08/18 at 22:30 Gabapentin (Neurontin) 300 mg QHS PO Last administered on 11/12/18 20:34; Admin Dose 300 MG; Start 11/08/18 at 21:00 Simethicone (Mylicon) 80 mg TID PRN PO .GAS; Start 11/07/18 at 22:30 Magnesium Hydroxide (Milk Of Mag) 30 ml HS PRN PO .CONSTIPATION Last administered on 11/11/18 00:31; Admin Dose 30 ML; Start 11/07/18 at 22:30 Bisacodyl (Dulcolax Supp) 10 mg DAILY PRN [place] .CONSTIPATION Last administered on 11/10/18at 15:24; Admin Dose 10 MG; Start 11/07/18 at 22:30 Sodium Biphosphate/ Sodium Phosphate (Fleet Enema) 133 ml DAILY PRN [place] .CONSTIPATION; Start 11/07/18 at 22:30 Diphenhydramine HCl (Benadryl) 25 mg Q4H PRN IV .ITCHING; Start 11/07/18 at 22:30 Naloxone HCl (Narcan) 0.2 mg Q2M PRN IV .RESP RATE; Start 11/07/18 at 22:30 IV Flush (NS 3 ml) 3 ml per protocol IV ; Start 11/07/18 at 22:30 Baclofen (Lioresal) 5 mg TID PO Last administered on 11/13/18 08:21; Admin Do se 5 MG; Start 11/08/18 at 13:00 Enoxaparin Sodium (Lovenox) 40 mg DAILY SC Last administered on 11/13/18 08:33; Admin Dose 40 MG; Start 11/09/18 at 09:00 Metoprolol Tartrate (Lopressor) 25 mg BID PO Last administered on 11/13/18 08:21; Admin Dose 25 MG; Start 11/10/18 at 21:00 Metoprolol Tartrate (Lopressor) 5 mg Q4H PRN IV HR>110 Hold SBP<100; Start 11/10/18 at 12:30 Insulin Aspart (Novolog Insulin Pen) NOVOLOG *MILD* ALGORI... AC MEALS AND BEDTIME SC Last administered on 11/12/18 12:12; Admin Dose 2 UNIT; Start 11/11/18 at 17:25 Diagnostic Test (Pha) (Accu-Chek) 1 ea 02 XX Last administered on 11/12/18 01:22; Admin Dose 1 EA; Start 11/12/18 at 02:00 Insulin Glargine (Lantus) 10 units HS SC Last administered on 11/12/18 20:51; Admin Dose 10 UNITS; Start 11/11/18 at 21:00 Metoclopramide HCl (Reglan) 10 mg Q6H PRN IV NAUSEA AND/OR VOMITING Last administered on 11/12/18 06:23; Admin Dose 10 MG; Start 11/11/18 at 23:30 Senna/Docusate Sodium (Senokot-S) 2 tab BID PO Last administered on 11/13/18at 08:22; Admin Dose 2 TAB; Start 11/12/18 at 21:00 Methylnaltrexone [place] (Relistor) 12 mg Q48H SC Last administered on 11/12/18at 18:48; Admin Dose 12 MG; Start 11/12/18 at 18:00 Metoclopramide HCl (Reglan) 5 mg Q6 IV Last administered on 11/13/18at 05:38; Admin Dose 5 MG; Start 11/12/18 at 18:00 CHADWICK FISHER MD November 13, 2018 10:28
--- NOTE | 2018-11-13 11:19 | PN ---
Date/Time of Note Date/Time of Note DATE: 11/13/18 TIME: 11:14 Assessment/Plan VTE Prophylaxis Risk score (from [facility])>0 risk: 3 SCD applied (from [facility]): Yes Pharmacological prophylaxis: NA/contraindicated Pharm contraindication: surgical contra Lines/Catheters [facility]from [facility] Saline Lock Urinary Cath still in place: No Assessment/Plan Hospital Course Assessment/Plan - Possible ileus, transaminitis, possible cholelithiasis per KUB. Dr. Conway is following in gastroenterology consultation -Severe constipation, resolving, continue bowel regimen - Displaced intertrochanteric fracture of the proximal left femur, mild varus angulation of fracture components. s/p surgery. Dr. Waggoner is following in orthopedic surgery consultation. -Leukocytosis most likely secondary to hip fracture, resolved. -Tachycardia, resolved. Dr. Banuelos is following in cardiology consultation -Hypertension, continue Norvasc and hydralazine. -Diabetes mellitus type 2. Continue Lantus and NovoLog. -History of cerebrovascular accident with ischemic infarct with left-sided weakness. Disposition: [facility] and rehab when patient's GI symptoms resolve. Further recommendations based on clinical course. Plan of care discussed with Dr. Potter. Result Diagram: 11/13/18 0614 11/13/18 0614 Results 24hrs Laboratory Tests Test 11/12/18 11:58 11/12/18 18:50 11/12/18 20:45 11/13/18 06:14 Bedside Glucose 186 132 146 White Blood Count 4.9 Red Blood Count 3.57 L Hemoglobin 10.1 L Hematocrit 30.8 L Mean Corpuscular 86.3 Volume Mean Corpuscular 28.3 L Hemoglobin Mean Corpuscular 32.8 Hemoglobin Concent Red Cell 12.5 Distribution Width Platelet Count 241 # Mean Platelet Volume 9.0 Immature 1.600 H Granulocytes % Neutrophils % 58.0 Lymphocytes % 24.5 Monocytes % 11.6 H Eosinophils % 3.7 Basophils % 0.6 Nucleated Red Blood 0.4 H Cells % Immature 0.080 H Granulocytes # Neutrophils # 2.8 Lymphocytes # 1.2 Monocytes # 0.6 Eosinophils # 0.2 Basophils # 0.0 Nucleated Red Blood 0.0 Cells # Prothrombin Time 12.1 Prothrombin Time 0.9 Ratio INR International 0.89 Normalized Ratio Sodium Level 139 Potassium Level 4.3 Chloride Level 100 Carbon Dioxide Level 33 H Anion Gap 6 Blood Urea Nitrogen 15 Creatinine 0.59 Est Glomerular > 60 Filtrat Rate mL/min Glucose Level 149 # Calcium Level 9.3 Total Bilirubin 0.8 Direct Bilirubin 0.00 Indirect Bilirubin 0.8 Aspartate Amino 145 H Transf (AST/SGOT) Alanine 120 H Aminotransferase (AL T/SGPT) Alkaline Phosphatase 262 H Total Protein 6.6 Albumin 3.6 Globulin 3.00 Albumin/Globulin 1.20 Ratio Test 11/13/18 08:16 Bedside Glucose 132 Exam/Review of Systems Exam Vitals Vital Signs Date Temp Pulse Resp B/P (MAP) Pulse Ox O2 O2 Flow FiO2 Time Delivery Rate 11/13/18 98.5 93 18 196/81 93 07:56 (119) Intake and Output 11/12/18 11/12/18 11/13/18 1515:00 23:00 07:00 IntakeIntake Total 200 ml 700 ml 500 ml BalanceBalance 200 ml 700 ml 500 ml Exam Constitutional: alert, oriented Respiratory: clear to auscultation Cardiovascular: nl pulses Gastrointestinal: soft, non-tender Musculoskeletal: other (Left hip s/p surgery) Extremities: normal pulses Neurological: nl mental status, other (Left-sided weakness) Results Results 24hrs Laboratory Tests Test 11/12/18 11:58 11/12/18 18:50 11/12/18 20:45 11/13/18 06:14 Bedside Glucose 186 132 146 White Blood Count 4.9 Red Blood Count 3.57 L Hemoglobin 10.1 L Hematocrit 30.8 L Mean Corpuscular 86.3 Volume Mean Corpuscular 28.3 L Hemoglobin Mean Corpuscular 32.8 Hemoglobin Concent Red Cell 12.5 Distribution Width Platelet Count 241 # Mean Platelet Volume 9.0 Immature 1.600 H Granulocytes % Neutrophils % 58.0 Lymphocytes % 24.5 Monocytes % 11.6 H Eosinophils % 3.7 Basophils % 0.6 Nucleated Red Blood 0.4 H Cells % Immature 0.080 H Granulocytes # Neutrophils # 2.8 Lymphocytes # 1.2 Monocytes # 0.6 Eosinophils # 0.2 Basophils # 0.0 Nucleated Red Blood 0.0 Cells # Prothrombin Time 12.1 Prothrombin Time 0.9 Ratio INR International 0.89 Normalized Ratio Sodium Level 139 Potassium Level 4.3 Chloride Level 100 Carbon Dioxide Level 33 H Anion Gap 6 Blood Urea Nitrogen 15 Creatinine 0.59 Est Glomerular > 60 Filtrat Rate mL/min Glucose Level 149 # Calcium Level 9.3 Total Bilirubin 0.8 Direct Bilirubin 0.00 Indirect Bilirubin 0.8 Aspartate Amino 145 H Transf (AST/SGOT) Alanine 120 H Aminotransferase (AL T/SGPT) Alkaline Phosphatase 262 H Total Protein 6.6 Albumin 3.6 Globulin 3.00 Albumin/Globulin 1.20 Ratio Test 11/13/18 08:16 Bedside Glucose 132 Medications Medication Current Medications Ondansetron HCl (Zofran Inj) 4 mg Q6H PRN IV NAUSEA AND/OR VOMITING Last administered on 11/11/18 14:24; Admin Dose 4 MG; Start 11/06/18 at 05:30 Pantoprazole (Protonix Tab) 40 mg AC BREAKFAST PO Last administered on 11/13/18 08:19; Admin Dose 40 MG; Start 11/06/18 at 07:00 Miscellaneous Information 1 ea NOTE XX ; Start 11/06/18 at 05:30 Glucose (Glutose) 15 gm Q15M PRN PO DECREASED GLUCOSE; Start 11/06/18 at 05:30 Glucose (Glutose) 22.5 gm Q15M PRN PO DECREASED GLUCOSE; Start 11/06/18 at 05:30 Dextrose (D50w Syringe) 25 ml Q15M PRN IV DECREASED GLUCOSE; Start 11/06/18 at 05:30 Dextrose (D50w Syringe) 50 ml Q15M PRN IV DECREASED GLUCOSE; Start 11/06/18 at 05:30 Glucagon (Glucagen) 1 mg Q15M PRN IM DECREASED GLUCOSE; Start 11/06/18 at 05:30 Glucose (Glutose) 15 gm Q15M PRN BUCCAL DECREASED GLUCOSE; Start 11/06/18 at 05:30 Amlodipine Besylate (Norvasc) 5 mg BID PO Last administered on 11/13/18at 08:22; Admin Dose 5 MG; Start 11/06/18 at 21:00 Hydralazine HCl (Apresoline) 25 mg BID PO Last administered on 11/13/18 08:22; Admin Dose 25 MG; Start 11/07/18 at 21:00 Oxycodone HCl (Roxicodone) 15 mg Q4H PRN PO .PAIN Last administered on 11/13/18at 10:53; Admin Dose 15 MG; Start 11/07/18 at 22:30 Oxycodone HCl (Roxicodone) 10 mg Q4H PRN PO .PAIN Last administered on 11/12/18 12:00; Admin Dose 10 MG; Start 11/07/18 at 22:30 Oxycodone HCl (Roxicodone) 5 mg Q4H PRN PO .PAIN Last administered on 11/09/18 08:31; Admin Dose 5 MG; Start 11/07/18 at 22:30 Hydromorphone HCl (Dilaudid) 1 mg Q3H PRN IV .BREAKTHROUGH PAIN Last administered on 11/10/18 10:15; Admin Dose 1 MG; Start 11/07/18 at 22:30 Acetaminophen (Tylenol Tab) 1,000 mg Q8 PO Last administered on 11/13/18 05:37; Admin Dose 1,000 MG; Start 11/08/18 at 06:00 Ondansetron HCl (Zofran Inj) 4 mg Q4H PRN IV NAUSEA/VOMITING Last administered on 11/11/18 20:31; Admin Dose 4 MG; Start 11/08/18 at 22:30 Gabapentin (Neurontin) 300 mg QHS PO Last administered on 11/12/18 20:34; Admin Dose 300 MG; Start 11/08/18 at 21:00 Simethicone (Mylicon) 80 mg TID PRN PO .GAS; Start 11/07/18 at 22:30 Magnesium Hydroxide (Milk Of Mag) 30 ml HS PRN PO .CONSTIPATION Last administered on 11/11/18 00:31; Admin Dose 30 ML; Start 11/07/18 at 22:30 Bisacodyl (Dulcolax Supp) 10 mg DAILY PRN [place] .CONSTIPATION Last administered on 11/10/18 15:24; Admin Dose 10 MG; Start 11/07/18 at 22:30 Sodium Biphosphate/ Sodium Phosphate (Fleet Enema) 133 ml DAILY PRN [place] .CONSTIPATION; Start 11/07/18 at 22:30 Diphenhydramine HCl (Benadryl) 25 mg Q4H PRN IV .ITCHING; Start 11/07/18 at 22:30 Naloxone HCl (Narcan) 0.2 mg Q2M PRN IV .RESP RATE; Start 11/07/18 at 22:30 IV Flush (NS 3 ml) 3 ml per protocol IV ; Start 11/07/18 at 22:30 Baclofen (Lioresal) 5 mg TID PO Last administered on 11/13/18 08:21; Admin Dose 5 MG; Start 11/08/18 at 13:00 Enoxaparin Sodium (Lovenox) 40 mg DAILY SC Last administered on 11/13/18 08:33; Admin Dose 40 MG; Start 11/09/18 at 09:00 Metoprolol Tartrate (Lopressor) 25 mg BID PO Last administered on 11/13/18 08:21; Admin Dose 25 MG; Start 11/10/18 at 21:00 Metoprolol Tartrate (Lopressor) 5 mg Q4H PRN IV HR>110 Hold SBP<100; Start 11/10/18 at 12:30 Insulin Aspart (Novolog Insulin Pen) NOVOLOG *MILD* ALGORI... AC MEALS AND BEDTIME SC Last administered on 11/12/18 12:12; Admin Dose 2 UNIT; Start 11/11/18 at 17:25 Diagnostic Test (Pha) (Accu-Chek) 1 ea 02 XX Last administered on 11/12/18 01:22; Admin Dose 1 EA; Start 11/12/18 at 02:00 Insulin Glargine (Lantus) 10 units HS SC Last administered on 11/12/18 20:51; Admin Dose 10 UNITS; Start 11/11/18 at 21:00 Metoclopramide HCl (Reglan) 10 mg Q6H PRN IV NAUSEA AND/OR VOMITING Last administered on 11/12/18 06:23; Admin Dose 10 MG; Start 11/11/18 at 23:30 Senna/Docusate Sodium (Senokot-S) 2 tab BID PO Last administered on 11/13/18 08:22; Admin Dose 2 TAB; Start 11/12/18 at 21:00 Methylnaltrexone [place] (Relistor) 12 mg Q48H SC Last administered on 11/12 18:48; Admin Dose 12 MG; Start 11/12/18 at 18:00 Metoclopramide HCl (Reglan) 5 mg Q6 IV Last administered on 11/13/18 05:38; Admin Dose 5 MG; Start 11/12/18 at 18:00 LESLIE SNELL November 13, 2018 11:19
[2018-11-13 13:03] VITALS: BP 129/78; PULSE 87; RESP 18
--- NOTE | 2018-11-13 13:19 | PN ---
Date/Time of Note Date/Time of Note DATE: 11/13/18 TIME: 13:18 Assessment/Plan Lines/Catheters IV Catheter Type (from Nrsg): Saline Lock Rodriguez in Place (from Nrsg): No Assessment/Plan Chief Complaint/Hosp Course Postop day #6 status post IM nail left IT fracture. Patient is a good candidate for evaluation for acute rehab unit as she was having significant progress with her post CVA rehabilitation prior to her fall and hip fracture. Patient's nausea and vomiting has significantly decreased and is resolving. She had a bowel movement as well. She feels much better. Reviewed bowel care orders with nurse today. Continue to monitor hemoglobin Carbohydrate controlled diet Pain control Weight-bear as tolerated PT/OT DVT prophylaxis: SCDs bilaterally. Lovenox 40 mg daily x6 weeks Acute rehab unit consult placed Discharge planning Okay to discharge from orthopedic standpoint Subjective 24 Hr Interval Summary Patient doing well No acute events overnight Pain is well controlled Exam/Review of Systems Vital Signs Vitals Vital Signs Date Temp Pulse Resp B/P (MAP) Pulse Ox O2 O2 Flow FiO2 Time Delivery Rate 11/13/18 87 18 129/78 13:03 (95) 11/13/18 98.5 93 07:56 Intake and Output 11/12/18 11/12/18 11/13/18 1515:00 23:00 07:00 IntakeIntake Total 200 ml 700 ml 500 ml BalanceBalance 200 ml 700 ml 500 ml Exam Free Text/Dictation Left lower extremity: Dressing: clean, dry, and intact, no erythema sensation to the dorsal aspect of her foot appears to be mostly intact. Sensation to the remainder of the foot is not intact to light touch which is the patient's baseline. There is no motor function of the foot and lower extremity. Dorsalis Pedis pulse +2, Brisk capillary refill. Compartments are soft. Calves non-tender to palpation bilaterally. Results Result Diagram: 11/13/18 0614 11/13/18 0614 DANILO BLISS MD November 13, 2018 13:19
[2018-11-13] MEDS: ONDANSETRON 4 MG INJ IV PRN (14:18)
[2018-11-13] MEDS ORDERED: IBUPROFEN 600 MG TAB PO PRN (14:30)
[2018-11-13] MEDS: CLOPIDOGREL 75 MG TAB PO SCH (14:40)
--- NOTE | 2018-11-13 20:08 | CONS ---
Assessment/Plan Assessment/Plan Hospital Course (Demo Recall) IMPRESSION: 1. Preoperative evaluation prior to lower extremity open reduction, internal fixation for a hip fracture.-no cp/sob. Neg trop x 2/Echo with NL EF and no sig valve abnl. 2. Hypertension-improved control on increased dose of norvasc 3. Status post fall, mechanical by description. 4. Diabetes mellitus. 5. History of cerebrovascular accident. 6. N/V-post-op Recc: -Now on med-surg -Continue baseline norvasc and hydralazine with reasonable BP control -Continue BB -pain control -Follow Blood sugars closely -Contineu to RX and continue to evaluate N/V Consultation Date/Type/Reason Admit Date/Time November 06, 2018 at 03:31 Initial Consult Date 11/06/18 Type of Consult Cardiology Reason for Consultation HTN Requesting Provider: ZAHIRA BELLO MD Date/Time of Note DATE: 11/13/18 TIME: 20:06 Exam/Review of Systems Vital Signs Vitals Vital Signs Date Temp Pulse Resp B/P (MAP) Pulse Ox O2 O2 Flow FiO2 Time Delivery Rate 11/13/18 87 18 129/78 13:03 (95) 11/13/18 98.5 93 07:56 Intake and Output 11/12/18 11/12/18 11/13/18 1515:00 23:00 07:00 IntakeIntake Total 200 ml 700 ml 500 ml BalanceBalance 200 ml 700 ml 500 ml Exam Exam Review of Systems: CONSTITUTIONAL: No fevers, chills. PULMONARY: No sob CARDIOVASCULAR: No chest pain/palpitations GASTROINTESTINAL: nausea/vomiting. GENITOURINARY: No hematuria/dysuria. MUSCULOSKELETAL: No myagias/arthalgias. PSYCHIATRIC: The patient denies depression. NEUROLOGIC: No weakness Constitutional: alert Psych: no complaints Head: normocephalic ENMT: mucosa pink and moist Neck: supple, jvd (9 cm water) Respiratory: clear to auscultation Cardiovascular: regular rate and rhythm Gastrointestinal: soft, non-tender Musculoskeletal: muscle tone (normal) Extremities: edema (none) Neurological: other (No focal deficits) Labs Result Diagram: 11/13/18 0614 11/13/18 0614 Results 24hrs Laboratory Tests Test 11/12/18 20:45 11/13/18 06:14 11/13/18 08:16 11/13/18 11:40 Bedside Glucose 146 132 195 White Blood Count 4.9 Red Blood Count 3.57 L Hemoglobin 10.1 L Hematocrit 30.8 L Mean Corpuscular 86.3 Volume Mean Corpuscular 28.3 L Hemoglobin Mean Corpuscular 32.8 Hemoglobin Concent Red Cell 12.5 Distribution Width Platelet Count 241 # Mean Platelet Volume 9.0 Immature 1.600 H Granulocytes % Neutrophils % 58.0 Lymphocytes % 24.5 Monocytes % 11.6 H Eosinophils % 3.7 Basophils % 0.6 Nucleated Red Blood 0.4 H Cells % Immature 0.080 H Granulocytes # Neutrophils # 2.8 Lymphocytes # 1.2 Monocytes # 0.6 Eosinophils # 0.2 Basophils # 0.0 Nucleated Red Blood 0.0 Cells # Prothrombin Time 12.1 Prothrombin Time 0.9 Ratio INR International 0.89 Normalized Ratio Sodium Level 139 Potassium Level 4.3 Chloride Level 100 Carbon Dioxide Level 33 H Anion Gap 6 Blood Urea Nitrogen 15 Creatinine 0.59 Est Glomerular > 60 Filtrat Rate mL/min Glucose Level 149 # Calcium Level 9.3 Total Bilirubin 0.8 Direct Bilirubin 0.00 Indirect Bilirubin 0.8 Aspartate Amino 145 H Transf (AST/SGOT) Alanine 120 H Aminotransferase (AL T/SGPT) Alkaline Phosphatase 262 H Total Protein 6.6 Albumin 3.6 Globulin 3.00 Albumin/Globulin 1.20 Ratio Test 11/13/18 17:56 Bedside Glucose 126 Medications Medications Current Medications Ondansetron HCl (Zofran Inj) 4 mg Q6H PRN IV NAUSEA AND/OR VOMITING Last administered on 11/13/18at 14:18; Admin Dose 4 MG; Start 11/06/18 at 05:30 Pantoprazole (Protonix Tab) 40 mg AC BREAKFAST PO Last administered on 11/13/18at 08:19; Admin Dose 40 MG; Start 11/06/18 at 07:00 Miscellaneous Information 1 ea NOTE XX ; Start 11/06/18 at 05:30 Glucose (Glutose) 15 gm Q15M PRN PO DECREASED GLUCOSE; Start 11/06/18 at 05:30 Glucose (Glutose) 22.5 gm Q15M PRN PO DECREASED GLUCOSE; Start 11/06/18 at 05:30 Dextrose (D50w Syringe) 25 ml Q15M PRN IV DECREASED GLUCOSE; Start 11/06/18 at 05:30 Dextrose (D50w Syringe) 50 ml Q15M PRN IV DECREASED GLUCOSE; Start 11/06/18 at 05:30 Glucagon (Glucagen) 1 mg Q15M PRN IM DECREASED GLUCOSE; Start 11/06/18 at 05:30 Glucose (Glutose) 15 gm Q15M PRN BUCCAL DECREASED GLUCOSE; Start 11/06/18 at 05:30 Amlodipine Besylate (Norvasc) 5 mg BID PO Last administered on 11/13/18 08:22; Admin Dose 5 MG; Start 11/06/18 at 21:00 Hydralazine HCl (Apresoline) 25 mg BID PO Last administered on 11/13/18 08:22; Admin Dose 25 MG; Start 11/07/18 at 21:00 Oxycodone HCl (Roxicodone) 15 mg Q4H PRN PO .PAIN Last administered on 11/13/18 10:53; Admin Dose 15 MG; Start 11/07/18 at 22:30 Oxycodone HCl (Roxicodone) 10 mg Q4H PRN PO .PAIN Last administered on 11/12/18 12:00; Admin Dose 10 MG; Start 11/07/18 at 22:30 Oxycodone HCl (Roxicodone) 5 mg Q4H PRN PO .PAIN Last administered on 11/09/18 08:31; Admin Dose 5 MG; Start 11/07/18 at 22:30 Hydromorphone HCl (Dilaudid) 1 mg Q3H PRN IV .BREAKTHROUGH PAIN Last administered on 11/10/18 10:15; Admin Dose 1 MG; Start 11/07/18 at 22:30 Acetaminophen (Tylenol Tab) 1,000 mg Q8 PO Last administered on 11/13/18 05:37; Admin Dose 1,000 MG; Start 11/08/18 at 06:00 Ondansetron HCl (Zofran Inj) 4 mg Q4H PRN IV NAUSEA/VOMITING Last administered on 11/11/18 20:31; Admin Dose 4 MG; Start 11/08/18 at 22:30 Gabapentin (Neurontin) 300 mg QHS PO Last administered on 11/12/18 20:34; Admin Dose 300 MG; Start 11/08/18 at 21:00 Simethicone (Mylicon) 80 mg TID PRN PO .GAS; Start 11/07/18 at 22:30 Magnesium Hydroxide (Milk Of Mag) 30 ml HS PRN PO .CONSTIPATION Last administered on 11/11/18at 00:31; Admin Dose 30 ML; Start 11/07/18 at 22:30 Bisacodyl (Dulcolax Supp) 10 mg DAILY PRN [place] .CONSTIPATION Last administered on 11/10/18at 15:24; Admin Dose 10 MG; Start 11/07/18 at 22:30 Sodium Biphosphate/ Sodium Phosphate (Fleet Enema) 133 ml DAILY PRN [place] .CONSTIPATION; Start 11/07/18 at 22:30 Diphenhydramine HCl (Benadryl) 25 mg Q4H PRN IV .ITCHING; Start 11/07/18 at 22:30 Naloxone HCl (Narcan) 0.2 mg Q2M PRN IV .RESP RATE; Start 11/07/18 at 22:30 IV Flush (NS 3 ml) 3 ml per protocol IV ; Start 11/07/18 at 22:30 Baclofen (Lioresal) 5 mg TID PO Last administered on 11/13/18 12:23; Admin Dose 5 MG; Start 11/08/18 at 13:00 Enoxaparin Sodium (Lovenox) 40 mg DAILY SC Last administered on 11/13/18 08:33; Admin Dose 40 MG; Start 11/09/18 at 09:00 Metoprolol Tartrate (Lopressor) 25 mg BID PO Last administered on 11/13/18 08:21; Admin Dose 25 MG; Start 11/10/18 at 21:00 Metoprolol Tartrate (Lopressor) 5 mg Q4H PRN IV HR>110 Hold SBP<100; Start 11/10/18 at 12:30 Insulin Aspart (Novolog Insulin Pen) NOVOLOG *MILD* ALGORI... AC MEALS AND BEDTIME SC Last administered on 11/13/18at 11:49; Admin Dose 2 UNIT; Start 11/11/18 at 17:25 Diagnostic Test (Pha) (Accu-Chek) 1 ea 02 XX Last administered on 11/12/18at 01:22; Admin Dose 1 EA; Start 11/12/18 at 02:00 Insulin Glargine (Lantus) 10 units HS SC Last administered on 11/12/18 20:51; Admin Dose 10 UNITS; Start 11/11/18 at 21:00 Metoclopramide HCl (Reglan) 10 mg Q6H PRN IV NAUSEA AND/OR VOMITING Last administered on 11/12/18 06:23; Admin Dose 10 MG; Start 11/11/18 at 23:30 Senna/Docusate Sodium (Senokot-S) 2 tab BID PO Last administered on 11/13/18 08:22; Admin Dose 2 TAB; Start 11/12/18 at 21:00 Methylnaltrexone [place] (Relistor) 12 mg Q48H SC Last administered on 11/12/18 at 18:48; Admin Dose 12 MG; Start 11/12/18 at 18:00 Metoclopramide HCl (Reglan) 5 mg Q6 IV Last administered on 11/13/18at 17:59; Admin Dose 5 MG; Start 11/12/18 at 18:00 Clopidogrel Bisulfate (plaVIX) 75 mg DAILY PO Last administered on 11/13/18at 14:40; Admin Dose 75 MG; Start 11/13/18 at 14:30 Ibuprofen (Motrin) 600 mg Q6H PRN PO MILD PAIN(1-3)OR ELEVATED TEMP; Start 11/13/18 at 14:30 RUSS PEPE November 13, 2018 20:08
[2018-11-13 20:22] VITALS: BP 143/81; PULSE 85; RESP 18
[2018-11-13] MEDS: GABAPENTIN 300 MG CAP PO SCH (21:46)
[2018-11-13] MEDS: INSULIN GLARGINE [LANTus] (100 UNITS/ML) SYG SC SCH (21:50)
[2018-11-14] MEDS: oxyCODONE 5 MG TAB PO PRN ×2 (00:47→17:11)
[2018-11-14 01:34] VITALS: BP 147/70; PULSE 64; RESP 18
[2018-11-14] MEDS: ACCU-CHEK XX SCH (01:53)
[2018-11-14] MEDS: ACETAMINOPHEN 500 MG TAB PO SCH ×3 (06:20→21:13)
[2018-11-14] MEDS: PANTOPRAZOLE (EC) 40 MG TAB PO SCH (06:21)
[2018-11-14] MEDS: METOCLOPRAMIDE 10 MG INJ IV SCH ×3 (06:21→17:10)
[2018-11-14 07:18] VITALS: BP 120/69; PULSE 75; RESP 17
[2018-11-14] MEDS: CLOPIDOGREL 75 MG TAB PO SCH (08:32)
[2018-11-14] MEDS: METOPROLOL 25 MG TAB PO SCH ×2 (08:32→21:15)
[2018-11-14] MEDS: BACLOFEN 10 MG TAB PO SCH ×3 (08:33→21:14)
[2018-11-14] MEDS: SENNA/DOCUSATE NA (8.6MG/50MG) TAB PO SCH ×2 (08:34→21:13)
[2018-11-14] MEDS: AMLODIPINE 5 MG TAB PO SCH ×2 (08:34→21:13)
[2018-11-14] MEDS: INSULIN ASPART [NOVOLOG] 3 ML PEN SC SCH ×4 (08:37→21:21)
[2018-11-14] MEDS: ENOXAPARIN 40 MG/0.4 ML SYG SC SCH (08:38)
--- NOTE | 2018-11-14 13:54 | PN ---
DATE: 11/14/2018 Patient had an episode of vomiting today. The patient did have bowel movement yesterday. Denies any abdominal distention. No reported chest pain. PHYSICAL EXAMINATION: GENERAL: The patient is awake, alert. VITAL SIGNS: Temperature 98.8, pulse 73, respirations 17, blood pressure 120/69, O2 saturation 99% on room air. HEENT: No eye discharge. Conjunctivae and lids are normal. Oropharynx clear. NECK: No mass. CHEST: Fairly clear. CARDIOVASCULAR: S1, S2 normal. ABDOMEN: Soft, nontender, nondistended. EXTREMITIES: No edema. NEUROLOGIC: The patient is awake, alert, has left hemiparesis. LABORATORY DATA: Done today, WBC 4.6, hemoglobin 9.6, platelet 242. BMP unremarkable. However, the patient still has elevated AST, ALT and alkaline phosphatase at 145, 120, 262. IMPRESSION: 1. Left hip fracture status post IM nail, Dr. Waggoner saw the patient and recommended acute rehabilitation. 2. Cerebrovascular accident. Again, possible acute rehab evaluation. 3. Elevated liver enzymes. The patient is being followed by Dr. Conway from GI standpoint. We will wait for his further recommendation,. I will order ultrasound of abdomen. D/W the patient's family. Dictated By: ZAHIRA DE LA CRUZ/LUANNE Conf#: [id number] DID#: [id number] MTDD
[2018-11-14 14:30] VITALS: BP 132/74; RESP 17
--- NOTE | 2018-11-14 15:08 | CONS ---
Assessment/Plan Assessment/Plan Assessment/Plan (Daily) Assessment/Plan (Daily) IMPRESSION: 1. Left intertrochanteric fracture of the proximal left femur, status post surgery. 2. Hypertension. 3. Diabetes mellitus. 4. Cerebrovascular accident with left-sided weakness. 5. Ileus and severe constipation. Better 6. Abnormal LFT Plan Continue [facility] Ultrasound of the abdomen for abnormal LFT Consultation Date/Type/Reason Admit Date/Time November 06, 2018 at 03:31 Initial Consult Date 11/06/18 Requesting Provider: ZAHIRA BELLO MD Date/Time of Note DATE: 11/14/18 TIME: 15:07 24 HR Interval Summary Free Text/Dictation Mild abdominal discomfort Constitutional: improved Exam/Review of Systems Exam Vitals Vital Signs Date Temp Pulse Resp B/P (MAP) Pulse Ox O2 O2 Flow FiO2 Time Delivery Rate 11/14/18 98.5 17 132/74 94 Room Air 14:30 (93) 11/14/18 75 07:18 Intake and Output 11/13/18 11/13/18 11/14/18 1515:00 23:00 07:00 IntakeIntake Total 480 ml OutputOutput Total 20 ml BalanceBalance 480 ml -20 ml Constitutional: alert, oriented, well developed Psych: no complaints, nl mood/affect Head: normocephalic, atraumatic Eyes: nl conjunctiva, EOMI, nl lids, nl sclera, PERRL ENMT: nl external ears & nose, nl lips & teeth, nl nasal mucosa & septum Neck: supple, non-tender Respiratory: clear to auscultation, normal air movement Cardiovascular: regular rate and rhythm, nl pulses Gastrointestinal: soft, nl liver, spleen, non-tender Musculoskeletal: nl extremities to inspection, nl gait and stance Extremities: normal pulses Neurological: [employer] SU[employer] II-XII intact, nl mental status, nl speech, nl strength Skin: nl turgor; No rash or lesions Lymph: nl lymph nodes Results Result Diagram: 11/14/18 0514 11/14/18 0514 Results 24hrs Laboratory Tests Test 11/13/18 17:56 11/13/18 21:44 11/14/18 01:50 11/14/18 05:14 Bedside Glucose 126 184 140 White Blood Count 4.6 L Red Blood Count 3.47 L Hemoglobin 9.6 L Hematocrit 30.1 L Mean Corpuscular 86.7 Volume Mean Corpuscular 27.7 L Hemoglobin Mean Corpuscular 31.9 L Hemoglobin Concent Red Cell 12.7 Distribution Width Platelet Count 242 Mean Platelet Volume 9.0 Immature 3.900 H Granulocytes % Neutrophils % 50.3 Lymphocytes % 29.2 Monocytes % 10.4 Eosinophils % 5.8 Basophils % 0.4 Nucleated Red Blood 0.6 H Cells % Immature 0.180 H Granulocytes # Neutrophils # 2.3 Lymphocytes # 1.4 Monocytes # 0.5 Eosinophils # 0.3 Basophils # 0.0 Nucleated Red Blood 0.0 Cells # Prothrombin Time 11.7 L Prothrombin Time 0.9 Ratio INR International 0.85 Normalized Ratio Sodium Level 140 Potassium Level 4.3 Chloride Level 103 Carbon Dioxide Level 31 Anion Gap 6 Blood Urea Nitrogen 13 Creatinine 0.56 Est Glomerular > 60 Filtrat Rate mL/min Glucose Level 115 Calcium Level 8.9 Total Bilirubin 0.7 Direct Bilirubin 0.00 Indirect Bilirubin 0.7 Aspartate Amino 144 H Transf (AST/SGOT) Alanine 155 H Aminotransferase (AL T/SGPT) Alkaline Phosphatase 230 H Total Protein 6.4 Albumin 3.3 Globulin 3.10 Albumin/Globulin 1.06 Ratio Test 11/14/18 08:31 11/14/18 12:49 Bedside Glucose 160 124 Medications Medication Current Medications Ondansetron HCl (Zofran Inj) 4 mg Q6H PRN IV NAUSEA AND/OR VOMITING Last administered on 11/13/18at 14:18; Admin Dose 4 MG; Start 11/06/18 at 05:30 Pantoprazole (Protonix Tab) 40 mg AC BREAKFAST PO Last administered on 11/14/18at 06:21; Admin Dose 40 MG; Start 11/06/18 at 07:00 Miscellaneous Information 1 ea NOTE XX ; Start 11/06/18 at 05:30 Glucose (Glutose) 15 gm Q15M PRN PO DECREASED GLUCOSE; Start 11/06/18 at 05:30 Glucose (Glutose) 22.5 gm Q15M PRN PO DECREASED GLUCOSE; Start 11/06/18 at 05:30 Dextrose (D50w Syringe) 25 ml Q15M PRN IV DECREASED GLUCOSE; Start 11/06/18 at 05:30 Dextrose (D50w Syringe) 50 ml Q15M PRN IV DECREASED GLUCOSE; Start 11/06/18 at 05:30 Glucagon (Glucagen) 1 mg Q15M PRN IM DECREASED GLUCOSE; Start 11/06/18 at 05:30 Glucose (Glutose) 15 gm Q15M PRN BUCCAL DECREASED GLUCOSE; Start 11/06/18 at 05:30 Amlodipine Besylate (Norvasc) 5 mg BID PO Last administered on 11/14/18 08:34; Admin Dose 5 MG; Start 11/06/18 at 21:00 Hydralazine HCl (Apresoline) 25 mg BID PO Last administered on 11/14/18 08:33; Admin Dose 25 MG; Start 11/07/18 at 21:00 Oxycodone HCl (Roxicodone) 15 mg Q4H PRN PO .PAIN Last administered on 11/13/18 10:53; Admin Dose 15 MG; Start 11/07/18 at 22:30 Oxycodone HCl (Roxicodone) 10 mg Q4H PRN PO .PAIN Last administered on 11/14/18 00:47; Admin Dose 10 MG; Start 11/07/18 at 22:30 Oxycodone HCl (Roxicodone) 5 mg Q4H PRN PO .PAIN Last administered on 11/09/18 08:31; Admin Dose 5 MG; Start 11/07/18 at 22:30 Hydromorphone HCl (Dilaudid) 1 mg Q3H PRN IV .BREAKTHROUGH PAIN Last adm inistered on 11/10/18 10:15; Admin Dose 1 MG; Start 11/07/18 at 22:30 Acetaminophen (Tylenol Tab) 1,000 mg Q8 PO Last administered on 11/14/18 06:20; Admin Dose 1,000 MG; Start 11/08/18 at 06:00 Ondansetron HCl (Zofran Inj) 4 mg Q4H PRN IV NAUSEA/VOMITING Last administered on 11/11/18 20:31; Admin Dose 4 MG; Start 11/08/18 at 22:30 Gabapentin (Neurontin) 300 mg QHS PO Last administered on 11/13/18 21:46; Admin Dose 300 MG; Start 11/08/18 at 21:00 Simethicone (Mylicon) 80 mg TID PRN PO .GAS; Start 11/07/18 at 22:30 Magnesium Hydroxide (Milk Of Mag) 30 ml HS PRN PO .CONSTIPATION Last ad ministered on 11/11/18at 00:31; Admin Dose 30 ML; Start 11/07/18 at 22:30 Bisacodyl (Dulcolax Supp) 10 mg DAILY PRN [place] .CONSTIPATION Last administered on 11/10/18at 15:24; Admin Dose 10 MG; Start 11/07/18 at 22:30 Sodium Biphosphate/ Sodium Phosphate (Fleet Enema) 133 ml DAILY PRN [place] .CONSTIPATION; Start 11/07/18 at 22:30 Diphenhydramine HCl (Benadryl) 25 mg Q4H PRN IV .ITCHING; Start 11/07/18 at 22:30 Naloxone HCl (Narcan) 0.2 mg Q2M PRN IV .RESP RATE; Start 11/07/18 at 22:30 IV Flush (NS 3 ml) 3 ml per protocol IV ; Start 11/07/18 at 22:30 Baclofen (Lioresal) 5 mg TID PO Last administered on 11/14/18 12:51; Admin Dose 5 MG; Start 11/08/18 at 13:00 Enoxaparin Sodium (Lovenox) 40 mg DAILY SC Last administered on 11/14/18 08:38; Admin Dose 40 MG; Start 11/09/18 at 09:00 Metoprolol Tartrate (Lopressor) 25 mg BID PO Last administered on 11/14/18 08:32; Admin Dose 25 MG; Start 11/10/18 at 21:00 Metoprolol Tartrate (Lopressor) 5 mg Q4H PRN IV HR>110 Hold SBP<100; Start 11/10/18 at 12:30 Insulin Aspart (Novolog Insulin Pen) NOVOLOG *MILD* ALGORI... AC MEALS AND BEDTIME SC Last administered on 11/14/18 08:37; Admin Dose 1 UNIT; Start 11/11/18 at 17:25 Diagnostic Test (Pha) (Accu-Chek) 1 ea 02 XX Last administered on 11/12/18 01:22; Admin Dose 1 EA; Start 11/12/18 at 02:00 Insulin Glargine (Lantus) 10 units HS SC Last administered on 11/13/18 21:50; Admin Dose 10 UNITS; Start 11/11/18 at 21:00 Metoclopramide HCl (Reglan) 10 mg Q6H PRN IV NAUSEA AND/OR VOMITING Last ad ministered on 11/12/18at 06:23; Admin Dose 10 MG; Start 11/11/18 at 23:30 Senna/Docusate Sodium (Senokot-S) 2 tab BID PO Last administered on 11/14/18 08:34; Admin Dose 2 TAB; Start 11/12/18 at 21:00 Methylnaltrexone [place] (Relistor) 12 mg Q48H SC Last administered on 11/12/18 18:48; Admin Dose 12 MG; Start 11/12/18 at 18:00 Metoclopramide HCl (Reglan) 5 mg Q6 IV Last administered on 11/14/18 12:50; Admin Dose 5 MG; Start 11/12/18 at 18:00 Clopidogrel Bisulfate (plaVIX) 75 mg DAILY PO Last administered on 11/14/18 08:32; Admin Dose 75 MG; Start 11/13/18 at 14:30 Ibuprofen (Motrin) 600 mg Q6H PRN PO MILD PAIN(1-3)OR ELEVATED TEMP; Start 11/13/18 at 14:30 CHADWICK FISHER MD November 14, 2018 15:08
--- NOTE | 2018-11-14 16:18 | CONS ---
Assessment/Plan Assessment/Plan Hospital Course (Demo Recall) IMPRESSION: 1. Preoperative evaluation prior to lower extremity open reduction, internal fixation for a hip fracture.-no cp/sob. Neg trop x 2/Echo with NL EF and no sig valve abnl. 2. Hypertension-improved control on increased dose of norvasc 3. Status post fall, mechanical by description. 4. Diabetes mellitus. 5. History of cerebrovascular accident. 6. N/V-post-op, improved 7. Incresaed LFT's Recc: -Now on med-surg -Continue baseline norvasc and hydralazine with reasonable BP control -Continue BB -pain control -Follow Blood sugars closely -GI eval of increased LFT's ongoing Consultation Date/Type/Reason Admit Date/Time November 06, 2018 at 03:31 Initial Consult Date 11/06/18 Type of Consult Cardiology Reason for Consultation HTN Requesting Provider: ZAHIRA BELLO MD Date/Time of Note DATE: 11/14/18 TIME: 16:17 Exam/Review of Systems Vital Signs Vitals Vital Signs Date Temp Pulse Resp B/P (MAP) Pulse Ox O2 O2 Flow FiO2 Time Delivery Rate 11/14/18 98.5 17 132/74 94 Room Air 14:30 (93) 11/14/18 75 07:18 Intake and Output 11/13/18 11/13/18 11/14/18 1515:00 23:00 07:00 IntakeIntake Total 480 ml OutputOutput Total 20 ml BalanceBalance 480 ml -20 ml Exam Exam Review of Systems: CONSTITUTIONAL: No fevers, chills. PULMONARY: No sob CARDIOVASCULAR: No chest pain/palpitations GASTROINTESTINAL: No nausea/vomiting. GENITOURINARY: No hematuria/dysuria. MUSCULOSKELETAL: No myagias/arthalgias. PSYCHIATRIC: The patient denies depression. NEUROLOGIC: No weakness Constitutional: alert Psych: no complaints Head: normocephalic ENMT: mucosa pink and moist Neck: supple, jvd (9 cm water) Respiratory: diminished breath sounds (at bases/B) Cardiovascular: regular rate and rhythm Gastrointestinal: soft, non-tender Musculoskeletal: muscle tone (normal) Extremities: edema (none) Neurological: other (No focal deficits) Labs Result Diagram: 11/14/18 0514 11/14/18 0514 Results 24hrs Laboratory Tests Test 11/13/18 17:56 11/13/18 21:44 11/14/18 01:50 11/14/18 05:14 Bedside Glucose 126 184 140 White Blood Count 4.6 L Red Blood Count 3.47 L Hemoglobin 9.6 L Hematocrit 30.1 L Mean Corpuscular 86.7 Volume Mean Corpuscular 27.7 L Hemoglobin Mean Corpuscular 31.9 L Hemoglobin Concent Red Cell 12.7 Distribution Width Platelet Count 242 Mean Platelet Volume 9.0 Immature 3.900 H Granulocytes % Neutrophils % 50.3 Lymphocytes % 29.2 Monocytes % 10.4 Eosinophils % 5.8 Basophils % 0.4 Nucleated Red Blood 0.6 H Cells % Immature 0.180 H Granulocytes # Neutrophils # 2.3 Lymphocytes # 1.4 Monocytes # 0.5 Eosinophils # 0.3 Basophils # 0.0 Nucleated Red Blood 0.0 Cells # Prothrombin Time 11.7 L Prothrombin Time 0.9 Ratio INR International 0.85 Normalized Ratio Sodium Level 140 Potassium Level 4.3 Chloride Level 103 Carbon Dioxide Level 31 Anion Gap 6 Blood Urea Nitrogen 13 Creatinine 0.56 Est Glomerular > 60 Filtrat Rate mL/min Glucose Level 115 Calcium Level 8.9 Total Bilirubin 0.7 Direct Bilirubin 0.00 Indirect Bilirubin 0.7 Aspartate Amino 144 H Transf (AST/SGOT) Alanine 155 H Aminotransferase (AL T/SGPT) Alkaline Phosphatase 230 H Total Protein 6.4 Albumin 3.3 Globulin 3.10 Albumin/Globulin 1.06 Ratio Test 11/14/18 08:31 11/14/18 12:49 Bedside Glucose 160 124 Medications Medications Current Medications Ondansetron HCl (Zofran Inj) 4 mg Q6H PRN IV NAUSEA AND/OR VOMITING Last administered on 11/13/18at 14:18; Admin Dose 4 MG; Start 11/06/18 at 05:30 Pantoprazole (Protonix Tab) 40 mg AC BREAKFAST PO Last administered on 11/14/18at 06:21; Admin Dose 40 MG; Start 11/06/18 at 07:00 Miscellaneous Information 1 ea NOTE XX ; Start 11/06/18 at 05:30 Glucose (Glutose) 15 gm Q15M PRN PO DECREASED GLUCOSE; Start 11/06/18 at 05:30 Glucose (Glutose) 22.5 gm Q15M PRN PO DECREASED GLUCOSE; Start 11/06/18 at 05:30 Dextrose (D50w Syringe) 25 ml Q15M PRN IV DECREASED GLUCOSE; Start 11/06/18 at 05:30 Dextrose (D50w Syringe) 50 ml Q15M PRN IV DECREASED GLUCOSE; Start 11/06/18 at 05:30 Glucagon (Glucagen) 1 mg Q15M PRN IM DECREASED GLUCOSE; Start 11/06/18 at 05:30 Glucose (Glutose) 15 gm Q15M PRN BUCCAL DECREASED GLUCOSE; Start 11/06/18 at 05:30 Amlodipine Besylate (Norvasc) 5 mg BID PO Last administered on 11/14/18 08:34; Admin Dose 5 MG; Start 11/06/18 at 21:00 Hydralazine HCl (Apresoline) 25 mg BID PO Last administered on 11/14/18 08:33; Admin Dose 25 MG; Start 11/07/18 at 21:00 Oxycodone HCl (Roxicodone) 15 mg Q4H PRN PO .PAIN Last administered on 10:53; Admin Dose 15 MG; Start 11/07/18 at 22:30 Oxycodone HCl (Roxicodone) 10 mg Q4H PRN PO .PAIN Last administered on 11/14/18 00:47; Admin Dose 10 MG; Start 11/07/18 at 22:30 Oxycodone HCl (Roxicodone) 5 mg Q4H PRN PO .PAIN Last administered on 11/09/18 08:31; Admin Dose 5 MG; Start 11/07/18 at 22:30 Hydromorphone HCl (Dilaudid) 1 mg Q3H PRN IV .BREAKTHROUGH PAIN Last administered on 11/10/18 10:15; Admin Dose 1 MG; Start 11/07/18 at 22:30 Acetaminophen (Tylenol Tab) 1,000 mg Q8 PO Last administered on 11/14/18 06:20; Admin Dose 1,000 MG; Start 11/08/18 at 06:00 Ondansetron HCl (Zofran Inj) 4 mg Q4H PRN IV NAUSEA/VOMITING Last administered on 11/11/18 20:31; Admin Dose 4 MG; Start 11/08/18 at 22:30 Gabapentin (Neurontin) 300 mg QHS PO Last administered on 11/13/18 21:46; Admin Dose 300 MG; Start 11/08/18 at 21:00 Simethicone (Mylicon) 80 mg TID PRN PO .GAS; Start 11/07/18 at 22:30 Magnesium Hydroxide (Milk Of Mag) 30 ml HS PRN PO .CONSTIPATION Last administered on 11/11/18 00:31; Admin Dose 30 ML; Start 11/07/18 at 22:30 Bisacodyl (Dulcolax Supp) 10 mg DAILY PRN [place] .CONSTIPATION Last administered on 11/10/18at 15:24; Admin Dose 10 MG; Start 11/07/18 at 22:30 Sodium Biphosphate/ Sodium Phosphate (Fleet Enema) 133 ml DAILY PRN [place] .CONSTIPATION; Start 11/07/18 at 22:30 Diphenhydramine HCl (Benadryl) 25 mg Q4H PRN IV .ITCHING; Start 11/07/18 at 22:30 Naloxone HCl (Narcan) 0.2 mg Q2M PRN IV .RESP RATE; Start 11/07/18 at 22:30 IV Flush (NS 3 ml) 3 ml per protocol IV ; Start 11/07/18 at 22:30 Baclofen (Lioresal) 5 mg TID PO Last administered on 11/14/18 12:51; Admin Dose 5 MG; Start 11/08/18 at 13:00 Enoxaparin Sodium (Lovenox) 40 mg DAILY SC Last administered on 11/14/18 08:38; Admin Dose 40 MG; Start 11/09/18 at 09:00 Metoprolol Tartrate (Lopressor) 25 mg BID PO Last administered on 11/14/18 08:32; Admin Dose 25 MG; Start 11/10/18 at 21:00 Metoprolol Tartrate (Lopressor) 5 mg Q4H PRN IV HR>110 Hold SBP<100; Start 11/10/18 at 12:30 Insulin Aspart (Novolog Insulin Pen) NOVOLOG *MILD* ALGORI... AC MEALS AND BEDTIME SC Last administered on 11/14/18 08:37; Admin Dose 1 UNIT; Start 11/11/18 at 17:25 Diagnostic Test (Pha) (Accu-Chek) 1 ea 02 XX Last administered on 11/12/18 01:22; Admin Dose 1 EA; Start 11/12/18 at 02:00 Insulin Glargine (Lantus) 10 units HS SC Last administered on 11/13/18 21:50; Admin Dose 10 UNITS; Start 11/11/18 at 21:00 Metoclopramide HCl (Reglan) 10 mg Q6H PRN IV NAUSEA AND/OR VOMITING Last administered on 11/12/18 06:23; Admin Dose 10 MG; Start 11/11/18 at 23:30 Senna/Docusate Sodium (Senokot-S) 2 tab BID PO Last administered on 11/14/18 08:34; Admin Dose 2 TAB; Start 11/12/18 at 21:00 Methylnaltrexone Shubert (Relistor) 12 mg Q48H SC Last administered on 11/12/18 18:48; Admin Dose 12 MG; Start 11/12/18 at 18:00 Metoclopramide HCl (Reglan) 5 mg Q6 IV Last administered on 11/14/18 12:50; Admin Dose 5 MG; Start 11/12/18 at 18:00 Clopidogrel Bisulfate (plaVIX) 75 mg DAILY PO Last administered on 11/14/18 08:32; Admin Dose 75 MG; Start 11/13/18 at 14:30 Ibuprofen (Motrin) 600 mg Q6H PRN PO MILD PAIN(1-3)OR ELEVATED TEMP; Start 11/13/18 at 14:30 RUSS PEPE November 14, 2018 16:18
[2018-11-14] MEDS: METHYLNALTREXONE 12 MG/0.6 ML VIAL SC SCH (17:11)
[2018-11-14 20:32] VITALS: BP 145/81; PULSE 87; RESP 18
[2018-11-14] MEDS: GABAPENTIN 300 MG CAP PO SCH (21:14)
[2018-11-14] MEDS: INSULIN GLARGINE [LANTus] (100 UNITS/ML) SYG SC SCH (21:19)
[2018-11-15] MEDS: METOCLOPRAMIDE 10 MG INJ IV SCH ×5 (00:47→23:55)
[2018-11-15 01:53] VITALS: BP 120/68; PULSE 82; RESP 18
[2018-11-15] MEDS: ACCU-CHEK XX SCH (02:00)
[2018-11-15] MEDS: PANTOPRAZOLE (EC) 40 MG TAB PO SCH (05:58)
[2018-11-15] MEDS: ACETAMINOPHEN 500 MG TAB PO SCH ×3 (05:59→22:46)
[2018-11-15] MEDS: INSULIN ASPART [NOVOLOG] 3 ML PEN SC SCH ×4 (07:00→21:00)
[2018-11-15 08:42] VITALS: BP 124/66; PULSE 78; RESP 18
--- NOTE | 2018-11-15 10:09 | CONS ---
Assessment/Plan Assessment/Plan Assessment/Plan (Daily) IMPRESSION: 1. Left intertrochanteric fracture of the proximal left femur, status post surgery. 2. Hypertension. 3. Diabetes mellitus. 4. Cerebrovascular accident with left-sided weakness. 5. Ileus and severe constipation. Better 6. Abnormal LFT 7. U/S 11/14/18: moderate to severely dilated gallbladder due to gallstones Plan Continue Amitiza consider surgery eval for distended gallbladder due to gallstones which likely contributes to abnormal LFT Consultation Date/Type/Reason Admit Date/Time November 06, 2018 at 03:31 Initial Consult Date 11/06/18 Type of Consult GI Requesting Provider: ZAHIRA BELLO MD Date/Time of Note DATE: 11/15/18 TIME: 10:06 24 HR Interval Summary Free Text/Dictation no n/v, tolerating po Exam/Review of Systems Exam Vitals Vital Signs Date Temp Pulse Resp B/P (MAP) Pulse Ox O2 O2 Flow FiO2 Time Delivery Rate 11/15/18 98.8 78 18 124/66 97 08:42 (85) 11/14/18 Room Air 14:30 Constitutional: alert, oriented, well developed Psych: no complaints, nl mood/affect Head: normocephalic, atraumatic Eyes: nl conjunctiva, EOMI, nl lids ENMT: nl external ears & nose, nl lips & teeth, nl nasal mucosa & septum Neck: supple, non-tender Respiratory: clear to auscultation, normal air movement Cardiovascular: regular rate and rhythm, nl pulses Gastrointestinal: soft, non-tender, bowel sounds Results Result Diagram: 11/14/18 0514 11/15/18 0528 Results 24hrs Laboratory Tests Test 11/14/18 12:49 11/14/18 17:10 11/14/18 21:11 11/15/18 02:52 Bedside Glucose 124 120 218 141 Test 11/15/18 05:28 11/15/18 08:02 Sodium Level 137 Potassium Level 4.4 Chloride Level 102 Carbon Dioxide Level 29 Anion Gap 6 Blood Urea Nitrogen 12 Creatinine 0.66 Est Glomerular > 60 Filtrat Rate mL/min Glucose Level 139 Calcium Level 9.0 Total Bilirubin 0.7 Direct Bilirubin 0.00 Indirect Bilirubin 0.7 Aspartate Amino 209 H Transf (AST/SGOT) Alanine 237 H Aminotransferase (AL T/SGPT) Alkaline Phosphatase 239 H Total Protein 6.3 Albumin 3.4 Globulin 2.90 Albumin/Globulin 1.17 Ratio Bedside Glucose 135 Medications Medication Current Medications Ondansetron HCl (Zofran Inj) 4 mg Q6H PRN IV NAUSEA AND/OR VOMITING Last administered on 11/13/18at 14:18; Admin Dose 4 MG; Start 11/06/18 at 05:30 Pantoprazole (Protonix Tab) 40 mg AC BREAKFAST PO Last administered on 11/15/18 at 05:58; Admin Dose 40 MG; Start 11/06/18 at 07:00 Miscellaneous Information 1 ea NOTE XX ; Start 11/06/18 at 05:30 Glucose (Glutose) 15 gm Q15M PRN PO DECREASED GLUCOSE; Start 11/06/18 at 05:30 Glucose (Glutose) 22.5 gm Q15M PRN PO DECREASED GLUCOSE; Start 11/06/18 at 05:30 Dextrose (D50w Syringe) 25 ml Q15M PRN IV DECREASED GLUCOSE; Start 11/06/18 at 05:30 Dextrose (D50w Syringe) 50 ml Q15M PRN IV DECREASED GLUCOSE; Start 11/06/18 at 05:30 Glucagon (Glucagen) 1 mg Q15M PRN IM DECREASED GLUCOSE; Start 11/06/18 at 05:30 Glucose (Glutose) 15 gm Q15M PRN BUCCAL DECREASED GLUCOSE; Start 11/06/18 at 05:30 Amlodipine Besylate (Norvasc) 5 mg BID PO Last administered on 11/14/18at 21:13; Admin Dose 5 MG; Start 11/06/18 at 21:00 Hydralazine HCl (Apresoline) 25 mg BID PO Last administered on 11/14/18at 21:14; Admin Dose 25 MG; Start 11/07/18 at 21:00 Oxycodone HCl (Roxicodone) 15 mg Q4H PRN PO .PAIN Last administered on 11/13/18at 10:53; Admin Dose 15 MG; Start 11/07/18 at 22:30 Oxycodone HCl (Roxicodone) 10 mg Q4H PRN PO .PAIN Last administered on 11/14/18at 17:11; Admin Dose 10 MG; Start 11/07/18 at 22:30 Oxycodone HCl (Roxicodone) 5 mg Q4H PRN PO .PAIN Last administered on 11/09/18 08:31; Admin Dose 5 MG; Start 11/07/18 at 22:30 Hydromorphone HCl (Dilaudid) 1 mg Q3H PRN IV .BREAKTHROUGH PAIN Last administered on 11/10/18 10:15; Admin Dose 1 MG; Start 11/07/18 at 22:30 Acetaminophen (Tylenol Tab) 1,000 mg Q8 PO Last administered on 11/15/18 05:59; Admin Dose 1,000 MG; Start 11/08/18 at 06:00 Ondansetron HCl (Zofran Inj) 4 mg Q4H PRN IV NAUSEA/VOMITING Last administered on 11/11/18 20:31; Admin Dose 4 MG; Start 11/08/18 at 22:30 Gabapentin (Neurontin) 300 mg QHS PO Last administered on 11/14/18 21:14; Admin Dose 300 MG; Start 11/08/18 at 21:00 Simethicone (Mylicon) 80 mg TID PRN PO .GAS; Start 11/07/18 at 22:30 Magnesium Hydroxide (Milk Of Mag) 30 ml HS PRN PO .CONSTIPATION Last administered on 11/11/18 00:31; Admin Dose 30 ML; Start 11/07/18 at 22:30 Bisacodyl (Dulcolax Supp) 10 mg DAILY PRN [place] .CONSTIPATION Last administered on 11/10/18 15:24; Admin Dose 10 MG; Start 11/07/18 at 22:30 Sodium Biphosphate/ Sodium Phosphate (Fleet Enema) 133 ml DAILY PRN [place] .CONSTIPATION; Start 11/07/18 at 22:30 Diphenhydramine HCl (Benadryl) 25 mg Q4H PRN IV .ITCHING; Start 11/07/18 at 22:30 Naloxone HCl (Narcan) 0.2 mg Q2M PRN IV .RESP RATE; Start 11/07/18 at 22:30 IV Flush (NS 3 ml) 3 ml per protocol IV ; Start 11/07/18 at 22:30 Baclofen (Lioresal) 5 mg TID PO Last administered on 11/14/18 21:14; Admin Dose 5 MG; Start 11/08/18 at 13:00 Enoxaparin Sodium (Lovenox) 40 mg DAILY SC Last administered on 11/14/18 08:38; Admin Dose 40 MG; Start 11/09/18 at 09:00 Metoprolol Tartrate (Lopressor) 25 mg BID PO Last administered on 11/14/18 21:15; Admin Dose 25 MG; Start 11/10/18 at 21:00 Metoprolol Tartrate (Lopressor) 5 mg Q4H PRN IV HR>110 Hold SBP<100; Start 11/10/18 at 12:30 Insulin Aspart (Novolog Insulin Pen) NOVOLOG *MILD* ALGORI... AC MEALS AND BEDTIME SC Last administered on 11/14/18 21:21; Admin Dose 2 UNIT; Start 11/11/18 at 17:25 Diagnostic Test (Pha) (Accu-Chek) 1 ea 02 XX Last administered on 11/12/18 01:22; Admin Dose 1 EA; Start 11/12/18 at 02:00 Insulin Glargine (Lantus) 10 units HS SC Last administered on 11/14/18 21:19; Admin Dose 10 UNITS; Start 11/11/18 at 21:00 Metoclopramide HCl (Reglan) 10 mg Q6H PRN IV NAUSEA AND/OR VOMITING Last administered on 11/12/18 06:23; Admin Dose 10 MG; Start 11/11/18 at 23:30 Senna/Docusate Sodium (Senokot-S) 2 tab BID PO Last administered on 11/14/18 21:13; Admin Dose 2 TAB; Start 11/12/18 at 21:00 Methylnaltrexone [place] (Relistor) 12 mg Q48H SC Last administered on 17:11; Admin Dose 12 MG; Start 11/12/18 at 18:00 Metoclopramide HCl (Reglan) 5 mg Q6 IV Last administered on 11/15/18 05:59; Admin Dose 5 MG; Start 11/12/18 at 18:00 Clopidogrel Bisulfate (plaVIX) 75 mg DAILY PO Last administered on 11/14/18 08:32; Admin Dose 75 MG; Start 11/13/18 at 14:30 Ibuprofen (Motrin) 600 mg Q6H PRN PO MILD PAIN(1-3)OR ELEVATED TEMP; Start 11/13/18 at 14:30 JAY BLUM MD November 15, 2018 10:09
[2018-11-15] MEDS: METOPROLOL 25 MG TAB PO SCH ×2 (10:17→22:46)
[2018-11-15] MEDS: SENNA/DOCUSATE NA (8.6MG/50MG) TAB PO SCH ×2 (10:17→21:02)
[2018-11-15] MEDS: BACLOFEN 10 MG TAB PO SCH ×3 (10:17→21:01)
[2018-11-15] MEDS: AMLODIPINE 5 MG TAB PO SCH ×2 (10:18→21:03)
[2018-11-15] MEDS: CLOPIDOGREL 75 MG TAB PO SCH (10:18)
[2018-11-15] MEDS: ENOXAPARIN 40 MG/0.4 ML SYG SC SCH (10:20)
[2018-11-15 15:45] VITALS: BP 113/70; PULSE 78; RESP 18
--- NOTE | 2018-11-15 16:53 | CONS ---
Assessment/Plan Assessment/Plan Hospital Course (Demo Recall) IMPRESSION: 1. Preoperative evaluation prior to lower extremity open reduction, internal fixation for a hip fracture.-no cp/sob. Neg trop x 2/Echo with NL EF and no sig valve abnl. 2. Hypertension-improved control on increased dose of norvasc 3. Status post fall, mechanical by description. 4. Diabetes mellitus. 5. History of cerebrovascular accident. 6. N/V-post-op, improved 7. Incresaed LFT's Recc: -Now on med-surg -Continue baseline norvasc and hydralazine with reasonable BP control -Continue BB -pain control -Follow Blood sugars closely -GI/surgical eval of increased LFT's/cholellithiasis ongoing Consultation Date/Type/Reason Admit Date/Time November 06, 2018 at 03:31 Initial Consult Date 11/06/18 Type of Consult Cardiology Reason for Consultation HTN Requesting Provider: ZAHIRA BELLO MD Date/Time of Note DATE: 11/15/18 TIME: 16:51 Exam/Review of Systems Vital Signs Vitals Vital Signs Date Temp Pulse Resp B/P (MAP) Pulse Ox O2 O2 Flow FiO2 Time Delivery Rate 11/15/18 98.6 78 18 113/70 98 15:45 (84) 11/14/18 Room Air 14:30 Exam Exam Review of Systems: CONSTITUTIONAL: No fevers, chills. PULMONARY: No sob CARDIOVASCULAR: No chest pain/palpitations GASTROINTESTINAL: No nausea/vomiting. GENITOURINARY: No hematuria/dysuria. MUSCULOSKELETAL: No myagias/arthalgias. PSYCHIATRIC: The patient denies depression. NEUROLOGIC: No weakness Constitutional: alert Psych: no complaints Head: normocephalic ENMT: mucosa pink and moist Neck: supple, jvd (9 cm water) Respiratory: diminished breath sounds (at bases/B) Cardiovascular: regular rate and rhythm Gastrointestinal: soft, non-tender Musculoskeletal: muscle weakness (mild generalized) Extremities: edema (none) Neurological: other (NO focal deficits) Labs Result Diagram: 11/14/18 0514 11/15/18 0528 Results 24hrs Laboratory Tests Test 11/14/18 17:10 11/14/18 21:11 11/15/18 02:52 11/15/18 05:28 Bedside Glucose 120 218 141 Sodium Level 137 Potassium Level 4.4 Chloride Level 102 Carbon Dioxide Level 29 Anion Gap 6 Blood Urea Nitrogen 12 Creatinine 0.66 Est Glomerular > 60 Filtrat Rate mL/min Glucose Level 139 Calcium Level 9.0 Total Bilirubin 0.7 Direct Bilirubin 0.00 Indirect Bilirubin 0.7 Aspartate Amino 209 H Transf (AST/SGOT) Alanine 237 H Aminotransferase (AL T/SGPT) Alkaline Phosphatase 239 H Total Protein 6.3 Albumin 3.4 Globulin 2.90 Albumin/Globulin 1.17 Ratio Test 11/15/18 08:02 11/15/18 12:44 Bedside Glucose 135 187 Medications Medications Current Medications Ondansetron HCl (Zofran Inj) 4 mg Q6H PRN IV NAUSEA AND/OR VOMITING Last administered on 11/13/18 14:18; Admin Dose 4 MG; Start 11/06/18 at 05:30 Pantoprazole (Protonix Tab) 40 mg AC BREAKFAST PO Last administered on 11/15/18at 05:58; Admin Dose 40 MG; Start 11/06/18 at 07:00 Miscellaneous Information 1 ea NOTE XX ; Start 11/06/18 at 05:30 Glucose (Glutose) 15 gm Q15M PRN PO DECREASED GLUCOSE; Start 11/06/18 at 05:30 Glucose (Glutose) 22.5 gm Q15M PRN PO DECREASED GLUCOSE; Start 11/06/18 at 05:30 Dextrose (D50w Syringe) 25 ml Q15M PRN IV DECREASED GLUCOSE; Start 11/06/18 at 05:30 Dextrose (D50w Syringe) 50 ml Q15M PRN IV DECREASED GLUCOSE; Start 11/06/18 at 05:30 Glucagon (Glucagen) 1 mg Q15M PRN IM DECREASED GLUCOSE; Start 11/06/18 at 05:30 Glucose (Glutose) 15 gm Q15M PRN BUCCAL DECREASED GLUCOSE; Start 11/06/18 at 05:30 Amlodipine Besylate (Norvasc) 5 mg BID PO Last administered on 11/15/18at 10:18; Admin Dose 5 MG; Start 11/06/18 at 21:00 Hydralazine HCl (Apresoline) 25 mg BID PO Last administered on 11/15/18at 10:19; Admin Dose 25 MG; Start 11/07/18 at 21:00 Oxycodone HCl (Roxicodone) 15 mg Q4H PRN PO .PAIN Last administered on 11/13/18 10:53; Admin Dose 15 MG; Start 11/07/18 at 22:30 Oxycodone HCl (Roxicodone) 10 mg Q4H PRN PO .PAIN Last administered on 11/14/18 17:11; Admin Dose 10 MG; Start 11/07/18 at 22:30 Oxycodone HCl (Roxicodone) 5 mg Q4H PRN PO .PAIN Last administered on 11/09/18 08:31; Admin Dose 5 MG; Start 11/07/18 at 22:30 Hydromorphone HCl (Dilaudid) 1 mg Q3H PRN IV .BREAKTHROUGH PAIN Last administered on 11/10/18 10:15; Admin Dose 1 MG; Start 11/07/18 at 22:30 Acetaminophen (Tylenol Tab) 1,000 mg Q8 PO Last administered on 11/15/18 14:48; Admin Dose 1,000 MG; Start 11/08/18 at 06:00 Ondansetron HCl (Zofran Inj) 4 mg Q4H PRN IV NAUSEA/VOMITING Last administered on 11/11/18 20:31; Admin Dose 4 MG; Start 11/08/18 at 22:30 Gabapentin (Neurontin) 300 mg QHS PO Last administered on 11/14/18 21:14; Admin Dose 300 MG; Start 11/08/18 at 21:00 Simethicone (Mylicon) 80 mg TID PRN PO .GAS; Start 11/07/18 at 22:30 Magnesium Hydroxide (Milk Of Mag) 30 ml HS PRN PO .CONSTIPATION Last administered on 11/11/18 00:31; Admin Dose 30 ML; Start 11/07/18 at 22:30 Bisacodyl (Dulcolax Supp) 10 mg DAILY PRN [place] .CONSTIPATION Last administered on 11/10/18 15:24; Admin Dose 10 MG; Start 11/07/18 at 22:30 Sodium Biphosphate/ Sodium Phosphate (Fleet Enema) 133 ml DAILY PRN [place] .CONSTIPATION; Start 11/07/18 at 22:30 Diphenhydramine HCl (Benadryl) 25 mg Q4H PRN IV .ITCHING; Start 11/07/18 at 22:30 Naloxone HCl (Narcan) 0.2 mg Q2M PRN IV .RESP RATE; Start 11/07/18 at 22:30 IV Flush (NS 3 ml) 3 ml per protocol IV ; Start 11/07/18 at 22:30 Baclofen (Lioresal) 5 mg TID PO Last administered on 11/15/18 13:19; Admin Dose 5 MG; Start 11/08/18 at 13:00 Enoxaparin Sodium (Lovenox) 40 mg DAILY SC Last administered on 11/15/18 10:20; Admin Dose 40 MG; Start 11/09/18 at 09:00 Metoprolol Tartrate (Lopressor) 25 mg BID PO Last administered on 11/15/18 10:17; Admin Dose 25 MG; Start 11/10/18 at 21:00 Metoprolol Tartrate (Lopressor) 5 mg Q4H PRN IV HR>110 Hold SBP<100; Start 11/10/18 at 12:30 Insulin Aspart (Novolog Insulin Pen) NOVOLOG *MILD* ALGORI... AC MEALS AND BEDTIME SC Last administered on 11/15/18 13:23; Admin Dose 2 UNIT; Start 11/11/18 at 17:25 Diagnostic Test (Pha) (Accu-Chek) 1 ea 02 XX Last administered on 11/12/18 01:22; Admin Dose 1 EA; Start 11/12/18 at 02:00 Insulin Glargine (Lantus) 10 units HS SC Last administered on 11/14/18 21:19; Admin Dose 10 UNITS; Start 11/11/18 at 21:00 Metoclopramide HCl (Reglan) 10 mg Q6H PRN IV NAUSEA AND/OR VOMITING Last administered on 11/12/18 06:23; Admin Dose 10 MG; Start 11/11/18 at 23:30 Senna/Docusate Sodium (Senokot-S) 2 tab BID PO Last administered on 11/15/18 10:17; Admin Dose 2 TAB; Start 11/12/18 at 21:00 Methylnaltrexone [place] (Relistor) 12 mg Q48H SC Last administered on 11/14/18 17:11; Admin Dose 12 MG; Start 11/12/18 at 18:00 Metoclopramide HCl (Reglan) 5 mg Q6 IV Last administered on 5/25/19at 13:20; Admin Dose 5 MG; Start 11/12/18 at 18:00 Clopidogrel Bisulfate (plaVIX) 75 mg DAILY PO Last administered on 11/15/18at 10:18; Admin Dose 75 MG; Start 11/13/18 at 14:30 Ibuprofen (Motrin) 600 mg Q6H PRN PO MILD PAIN(1-3)OR ELEVATED TEMP; Start 11/13/18 at 14:30 RUSS PEPE November 15, 2018 16:53
[2018-11-15 17:58] VITALS: BP 136/77; PULSE 92; RESP 18
[2018-11-15 20:00] VITALS: BP 138/85; PULSE 83; RESP 18
[2018-11-15] MEDS: GABAPENTIN 300 MG CAP PO SCH (21:01)
[2018-11-15] MEDS: INSULIN GLARGINE [LANTus] (100 UNITS/ML) SYG SC SCH (21:06)
--- NOTE | 2018-11-15 21:25 | PN ---
Date/Time of Note Date/Time of Note DATE: 11/15/18 TIME: 21:23 Assessment/Plan VTE Prophylaxis Risk score (from Ns)>0 risk: 8 SCD applied (from Ns): Yes SCD contraindicated: other Pharmacological prophylaxis: other Lines/Catheters IV [facility]ter [facility]from [facility]): [place] [facility] Urinary Cath still in place: No Assessment/Plan Assessment/Plan 1. Left hip fracture status post IM nail, Dr. Waggoner saw the patient and recommended acute rehabilitation. 2. Cerebrovascular accident. Again, possible acute rehab evaluation. 3. Elevated liver enzymes. The patient is being followed by Dr. Conway from GI standpoint. We will wait for his further recommendation,. - GI follows - US abd- Moderate to severely distended gallbladder with cholelithiasis. No evidence of wall thickening or pericholecystic fluid. No definitive sonographic evidence of acute cholecystitis. Consider further evaluation with CT abdomen and pelvis. - will order CT abdomen as well - fu results 4 Anemia- hgb 9.6 Patients daughter at bed side- all Qs answered. Patient seen in collaboration with Dr Potter. Result Diagram: 11/14/18 0514 11/15/18 0528 Results 24hrs Laboratory Tests Test 11/15/18 02:52 11/15/18 05:28 11/15/18 08:02 11/15/18 12:44 Bedside Glucose 141 135 187 Sodium Level 137 Potassium Level 4.4 Chloride Level 102 Carbon Dioxide Level 29 Anion Gap 6 Blood Urea Nitrogen 12 Creatinine 0.66 Est Glomerular > 60 Filtrat Rate mL/min Glucose Level 139 Calcium Level 9.0 Total Bilirubin 0.7 Direct Bilirubin 0.00 Indirect Bilirubin 0.7 Aspartate Amino 209 H Transf (AST/SGOT) Alanine 237 H Aminotransferase (AL T/SGPT) Alkaline Phosphatase 239 H Total Protein 6.3 Albumin 3.4 Globulin 2.90 Albumin/Globulin 1.17 Ratio Test 11/15/18 17:46 11/15/18 20:52 Bedside Glucose 130 147 Subjective 24 Hr Interval Summary Eyes: no complaints ENT: no complaints Respiratory: no complaints Cardiovascular: no complaints Gastrointestinal: no complaints Genitourinary: no complaints Musculoskeletal: bone/joint pain, restricted range of motion Skin: no complaints Lymphatic: no complaints Psychological: no complaints Exam/Review of Systems Exam Vitals Vital Signs Date Temp Pulse Resp B/P (MAP) Pulse Ox O2 O2 Flow FiO2 Time Delivery Rate 11/15/18 98.6 83 18 138/85 97 20:00 (102) 11/14/18 Room Air 14:30 Constitutional: alert, well developed Psych: nl mood/affect Head: atraumatic Eyes: nl lids ENMT: nl external ears & nose Neck: non-tender Respiratory: clear to auscultation Cardiovascular: nl pulses, other (s1s2) Gastrointestinal: soft, non-tender Musculoskeletal: joint tenderness, range of motion, other (Left hip dressing- DDI) Neurological: other (alert/responsive) Skin: nl turgor Lymph: nontender Results Results 24hrs Laboratory Tests Test 11/15/18 02:52 11/15/18 05:28 11/15/18 08:02 11/15/18 12:44 Bedside Glucose 141 135 187 Sodium Level 137 Potassium Level 4.4 Chloride Level 102 Carbon Dioxide Level 29 Anion Gap 6 Blood Urea Nitrogen 12 Creatinine 0.66 Est Glomerular > 60 Filtrat Rate mL/min Glucose Level 139 Calcium Level 9.0 Total Bilirubin 0.7 Direct Bilirubin 0.00 Indirect Bilirubin 0.7 Aspartate Amino 209 H Transf (AST/SGOT) Alanine 237 H Aminotransferase (AL T/SGPT) Alkaline Phosphatase 239 H Total Protein 6.3 Albumin 3.4 Globulin 2.90 Albumin/Globulin 1.17 Ratio Test 11/15/18 17:46 11/15/18 20:52 Bedside Glucose 130 147 Medications Medication Current Medications Ondansetron HCl (Zofran Inj) 4 mg Q6H PRN IV NAUSEA AND/OR VOMITING Last administered on 11/13/18at 14:18; Admin Dose 4 MG; Start 11/06/18 at 05:30 Pantoprazole (Protonix Tab) 40 mg AC BREAKFAST PO Last administered on 11/15/18at 05:58; Admin Dose 40 MG; Start 11/06/18 at 07:00 Miscellaneous Information 1 ea NOTE XX ; Start 11/06/18 at 05:30 Glucose (Glutose) 15 gm Q15M PRN PO DECREASED GLUCOSE; Start 11/06/18 at 05:30 Glucose (Glutose) 22.5 gm Q15M PRN PO DECREASED GLUCOSE; Start 11/06/18 at 05:30 Dextrose (D50w Syringe) 25 ml Q15M PRN IV DECREASED GLUCOSE; Start 11/06/18 at 05:30 Dextrose (D50w Syringe) 50 ml Q15M PRN IV DECREASED GLUCOSE; Start 11/06/18 at 05:30 Glucagon (Glucagen) 1 mg Q15M PRN IM DECREASED GLUCOSE; Start 11/06/18 at 05:30 Glucose (Glutose) 15 gm Q15M PRN BUCCAL DECREASED GLUCOSE; Start 11/06/18 at 05:30 Amlodipine Besylate (Norvasc) 5 mg BID PO Last administered on 11/15/18 21:03; Admin Dose 5 MG; Start 11/06/18 at 21:00 Hydralazine HCl (Apresoline) 25 mg BID PO Last administered on 11/15/18 21:02; Admin Dose 25 MG; Start 11/07/18 at 21:00 Oxycodone HCl (Roxicodone) 15 mg Q4H PRN PO .PAIN Last administered on 11/13/18 10:53; Admin Dose 15 MG; Start 11/07/18 at 22:30 Oxycodone HCl (Roxicodone) 10 mg Q4H PRN PO .PAIN Last administered on 11/14/18 17:11; Admin Dose 10 MG; Start 11/07/18 at 22:30 Oxycodone HCl (Roxicodone) 5 mg Q4H PRN PO .PAIN Last administered on 11/09/18 08:31; Admin Dose 5 MG; Start 11/07/18 at 22:30 Hydromorphone HCl (Dilaudid) 1 mg Q3H PRN IV .BREAKTHROUGH PAIN Last administ ered on 11/10/18 10:15; Admin Dose 1 MG; Start 11/07/18 at 22:30 Acetaminophen (Tylenol Tab) 1,000 mg Q8 PO Last administered on 11/15/18 14:48; Admin Dose 1,000 MG; Start 11/08/18 at 06:00 Ondansetron HCl (Zofran Inj) 4 mg Q4H PRN IV NAUSEA/VOMITING Last administered on 11/11/18 20:31; Admin Dose 4 MG; Start 11/08/18 at 22:30 Gabapentin (Neurontin) 300 mg QHS PO Last administered on 11/15/18 21:01; Admin Dose 300 MG; Start 11/08/18 at 21:00 Simethicone (Mylicon) 80 mg TID PRN PO .GAS; Start 11/07/18 at 22:30 Magnesium Hydroxide (Milk Of Mag) 30 ml HS PRN PO .CONSTIPATION Last adminis tered on 11/11/18at 00:31; Admin Dose 30 ML; Start 11/07/18 at 22:30 Bisacodyl (Dulcolax Supp) 10 mg DAILY PRN [place] .CONSTIPATION Last administered on 11/10/18at 15:24; Admin Dose 10 MG; Start 11/07/18 at 22:30 Sodium Biphosphate/ Sodium Phosphate (Fleet Enema) 133 ml DAILY PRN [place] .CONSTIPATION; Start 11/07/18 at 22:30 Diphenhydramine HCl (Benadryl) 25 mg Q4H PRN IV .ITCHING; Start 11/07/18 at 22:30 Naloxone HCl (Narcan) 0.2 mg Q2M PRN IV .RESP RATE; Start 11/07/18 at 22:30 IV Flush (NS 3 ml) 3 ml per protocol IV ; Start 11/07/18 at 22:30 Baclofen (Lioresal) 5 mg TID PO Last administered on 11/15/18 21:01; Admin Dose 5 MG; Start 11/08/18 at 13:00 Enoxaparin Sodium (Lovenox) 40 mg DAILY SC Last administered on 11/15/18 10:20; Admin Dose 40 MG; Start 11/09/18 at 09:00 Metoprolol Tartrate (Lopressor) 25 mg BID PO Last administered on 11/15/18 10:17; Admin Dose 25 MG; Start 11/10/18 at 21:00 Metoprolol Tartrate (Lopressor) 5 mg Q4H PRN IV HR>110 Hold SBP<100; Start 11/10/18 at 12:30 Insulin Aspart (Novolog Insulin Pen) NOVOLOG *MILD* ALGORI... AC MEALS AND BEDTIME SC Last administered on 11/15/18at 13:23; Admin Dose 2 UNIT; Start 11/11/18 at 17:25 Diagnostic Test (Pha) (Accu-Chek) 1 ea 02 XX Last administered on 11/12/18at 01:22; Admin Dose 1 EA; Start 11/12/18 at 02:00 Insulin Glargine (Lantus) 10 units HS SC Last administered on 11/15/18 21:06; Admin Dose 10 UNITS; Start 11/11/18 at 21:00 Metoclopramide HCl (Reglan) 10 mg Q6H PRN IV NAUSEA AND/OR VOMITING Last administered on 11/12/18 06:23; Admin Dose 10 MG; Start 11/11/18 at 23:30 Senna/Docusate Sodium (Senokot-S) 2 tab BID PO Last administered on 11/15/18 21:02; Admin Dose 2 TAB; Start 11/12/18 at 21:00 Methylnaltrexone [place] (Relistor) 12 mg Q48H SC Last administered on 11/14/18 17:11; Admin Dose 12 MG; Start 11/12/18 at 18:00 Metoclopramide HCl (Reglan) 5 mg Q6 IV Last administered on 11/15/18 18:00; Admin Dose 5 MG; Start 11/12/18 at 18:00 Clopidogrel Bisulfate (plaVIX) 75 mg DAILY PO Last administered on 11/15/18 10:18; Admin Dose 75 MG; Start 11/13/18 at 14:30 Ibuprofen (Motrin) 600 mg Q6H PRN PO MILD PAIN(1-3)OR ELEVATED TEMP; Start 11/13/18 at 14:30 EVELIA ALFONSO November 15, 2018 21:25
[2018-11-16 02:00] VITALS: BP 124/76; PULSE 77; RESP 18
[2018-11-16] MEDS: ACCU-CHEK XX SCH (02:00)
[2018-11-16] MEDS: METOCLOPRAMIDE 10 MG INJ IV SCH ×3 (06:06→17:39)
[2018-11-16] MEDS: PANTOPRAZOLE (EC) 40 MG TAB PO SCH (06:06)
[2018-11-16] MEDS: ACETAMINOPHEN 500 MG TAB PO SCH ×3 (06:06→21:48)
[2018-11-16] MEDS: INSULIN ASPART [NOVOLOG] 3 ML PEN SC SCH ×4 (07:00→21:40)
[2018-11-16 07:35] VITALS: BP 120/75; PULSE 76; RESP 20
--- NOTE | 2018-11-16 08:40 | PN ---
Date/Time of Note Date/Time of Note DATE: 11/16/18 TIME: 08:39 Assessment/Plan VTE Prophylaxis Risk score (from Ns)>0 risk: 7 SCD applied (from [facility]): Yes SCD contraindicated: other Pharmacological prophylaxis: other Pharm contraindication: other Lines/Catheters IV Catheter Type (from [facility]): Saline Lock Urinary Cath still in place: No Assessment/Plan Assessment/Plan 1. Left hip fracture status post IM nail, Dr. Waggoner saw the patient and r ecommended acute rehabilitation. 2. Cerebrovascular accident. Again, possible acute rehab evaluation. 3. Elevated liver enzymes. The patient is being followed by Dr. Conway from GI standpoint. We will wait for his further recommendation,. - GI follows - US abd- Moderate to severely distended gallbladder with cholelithiasis. No evidence of wall thickening or pericholecystic fluid. No definitive sonographic evidence of acute cholecystitis. Consider further evaluation with CT abdomen and pelvis. - -CT abd- Dense sludge and stones within the gallbladder. 4 Anemia- hgb 10.4 Patients daughter at bed side- all Qs answered. Patient seen in collaboration with Dr Potter. Result Diagram: 11/16/18 0500 11/16/18 0500 Results 24hrs Laboratory Tests Test 11/15/18 12:44 11/15/18 17:46 11/15/18 20:52 11/16/18 05:00 Bedside Glucose 187 130 147 White Blood Count 5.1 Red Blood Count 3.68 L Hemoglobin 10.4 L Hematocrit 32.1 L Mean Corpuscular 87.2 Volume Mean Corpuscular 28.3 L Hemoglobin Mean Corpuscular 32.4 Hemoglobin Concent Red Cell 13.3 Distribution Width Platelet Count 268 Mean Platelet Volume 8.8 Immature 3.000 H Granulocytes % Neutrophils % 54.9 Lymphocytes % 27.1 Monocytes % 9.9 Eosinophils % 4.5 Basophils % 0.6 Nucleated Red Blood 0.0 Cells % Immature 0.150 H Granulocytes # Neutrophils # 2.8 Lymphocytes # 1.4 Monocytes # 0.5 Eosinophils # 0.2 Basophils # 0.0 Nucleated Red Blood 0.0 Cells # Sodium Level 140 Potassium Level 4.3 Chloride Level 106 Carbon Dioxide Level 27 Anion Gap 7 Blood Urea Nitrogen 13 Creatinine 0.60 Est Glomerular > 60 Filtrat Rate mL/min Glucose Level 126 Calcium Level 9.1 Total Bilirubin 0.7 Direct Bilirubin 0.00 Indirect Bilirubin 0.7 Aspartate Amino 212 H Transf (AST/SGOT) Alanine 294 H Aminotransferase (AL T/SGPT) Alkaline Phosphatase 280 H Total Protein 6.7 Albumin 3.5 Globulin 3.20 Albumin/Globulin 1.09 Ratio Exam/Review of Systems Exam Vitals Vital Signs Date Temp Pulse Resp B/P (MAP) Pulse Ox O2 O2 Flow FiO2 Time Delivery Rate 11/16/18 98.7 76 20 120/75 96 07:35 (90) 11/14/18 Room Air 14:30 Intake and Output 11/15/18 11/15/18 11/16/18 1515:00 23:00 07:00 IntakeIntake Total 480 ml 1140 ml BalanceBalance 480 ml 1140 ml Constitutional: alert, well developed Psych: nl mood/affect Eyes: nl lids, nl sclera ENMT: nl external ears & nose Neck: non-tender Respiratory: clear to auscultation Cardiovascular: nl pulses, other (s1s2) Gastrointestinal: soft, non-tender Musculoskeletal: joint tenderness, range of motion, other (left hip- DDI) Extremities: normal pulses Neurological: other (alert/responsive) Skin: nl turgor Lymph: nontender Results Results 24hrs Laboratory Tests Test 11/15/18 12:44 11/15/18 17:46 11/15/18 20:52 11/16/18 05:00 Bedside Glucose 187 130 147 White Blood Count 5.1 Red Blood Count 3.68 L Hemoglobin 10.4 L Hematocrit 32.1 L Mean Corpuscular 87.2 Volume Mean Corpuscular 28.3 L Hemoglobin Mean Corpuscular 32.4 Hemoglobin Concent Red Cell 13.3 Distribution Width Platelet Count 268 Mean Platelet Volume 8.8 Immature 3.000 H Granulocytes % Neutrophils % 54.9 Lymphocytes % 27.1 Monocytes % 9.9 Eosinophils % 4.5 Basophils % 0.6 Nucleated Red Blood 0.0 Cells % Immature 0.150 H Granulocytes # Neutrophils # 2.8 Lymphocytes # 1.4 Monocytes # 0.5 Eosinophils # 0.2 Basophils # 0.0 Nucleated Red Blood 0.0 Cells # Sodium Level 140 Potassium Level 4.3 Chloride Level 106 Carbon Dioxide Level 27 Anion Gap 7 Blood Urea Nitrogen 13 Creatinine 0.60 Est Glomerular > 60 Filtrat Rate mL/min Glucose Level 126 Calcium Level 9.1 Total Bilirubin 0.7 Direct Bilirubin 0.00 Indirect Bilirubin 0.7 Aspartate Amino 212 H Transf (AST/SGOT) Alanine 294 H Aminotransferase (AL T/SGPT) Alkaline Phosphatase 280 H Total Protein 6.7 Albumin 3.5 Globulin 3.20 Albumin/Globulin 1.09 Ratio Medications Medication Current Medications Ondansetron HCl (Zofran Inj) 4 mg Q6H PRN IV NAUSEA AND/OR VOMITING Last administered on 11/13/18at 14:18; Admin Dose 4 MG; Start 11/06/18 at 05:30 Pantoprazole (Protonix Tab) 40 mg AC BREAKFAST PO Last administered on 11/16/18at 06:06; Admin Dose 40 MG; Start 11/06/18 at 07:00 Miscellaneous Information 1 ea NOTE XX ; Start 11/06/18 at 05:30 Glucose (Glutose) 15 gm Q15M PRN PO DECREASED GLUCOSE; Start 11/06/18 at 05:30 Glucose (Glutose) 22.5 gm Q15M PRN PO DECREASED GLUCOSE; Start 11/06/18 at 05:30 Dextrose (D50w Syringe) 25 ml Q15M PRN IV DECREASED GLUCOSE; Start 11/06/18 at 05:30 Dextrose (D50w Syringe) 50 ml Q15M PRN IV DECREASED GLUCOSE; Start 11/06/18 at 05:30 Glucagon (Glucagen) 1 mg Q15M PRN IM DECREASED GLUCOSE; Start 11/06/18 at 05:30 Glucose (Glutose) 15 gm Q15M PRN BUCCAL DECREASED GLUCOSE; Start 11/06/18 at 05:30 Amlodipine Besylate (Norvasc) 5 mg BID PO Last administered on 11/15/18at 21:03; Admin Dose 5 MG; Start 11/06/18 at 21:00 Hydralazine HCl (Apresoline) 25 mg BID PO Last administered on 11/15/18 21:02; Admin Dose 25 MG; Start 11/07/18 at 21:00 Oxycodone HCl (Roxicodone) 15 mg Q4H PRN PO .PAIN Last administered on 11/13/18at 10:53; Admin Dose 15 MG; Start 11/07/18 at 22:30 Oxycodone HCl (Roxicodone) 10 mg Q4H PRN PO .PAIN Last administered on 11/14/18 17:11; Admin Dose 10 MG; Start 11/07/18 at 22:30 Oxycodone HCl (Roxicodone) 5 mg Q4H PRN PO .PAIN Last administered on 11/09/18 08:31; Admin Dose 5 MG; Start 11/07/18 at 22:30 Hydromorphone HCl (Dilaudid) 1 mg Q3H PRN IV .BREAKTHROUGH PAIN Last administered on 11/10/18 10:15; Admin Dose 1 MG; Start 11/07/18 at 22:30 Acetaminophen (Tylenol Tab) 1,000 mg Q8 PO Last administered on 11/16/18 06:06; Admin Dose 1,000 MG; Start 11/08/18 at 06:00 Ondansetron HCl (Zofran Inj) 4 mg Q4H PRN IV NAUSEA/VOMITING Last administered on 11/11/18 20:31; Admin Dose 4 MG; Start 11/08/18 at 22:30 Gabapentin (Neurontin) 300 mg QHS PO Last administered on 11/15/18 21:01; Admin Dose 300 MG; Start 11/08/18 at 21:00 Simethicone (Mylicon) 80 mg TID PRN PO .GAS; Start 11/07/18 at 22:30 Magnesium Hydroxide (Milk Of Mag) 30 ml HS PRN PO .CONSTIPATION Last administered on 11/11/18 00:31; Admin Dose 30 ML; Start 11/07/18 at 22:30 Bisacodyl (Dulcolax Supp) 10 mg DAILY PRN [place] .CONSTIPATION Last administered on 11/10/18 15:24; Admin Dose 10 MG; Start 11/07/18 at 22:30 Sodium Biphosphate/ Sodium Phosphate (Fleet Enema) 133 ml DAILY PRN [place] .CONSTIPATION; Start 11/07/18 at 22:30 Diphenhydramine HCl (Benadryl) 25 mg Q4H PRN IV .ITCHING; Start 11/07/18 at 22:30 Naloxone HCl (Narcan) 0.2 mg Q2M PRN IV .RESP RATE; Start 11/07/18 at 22:30 IV Flush (NS 3 ml) 3 ml per protocol IV ; Start 11/07/18 at 22:30 Baclofen (Lioresal) 5 mg TID PO Last administered on 11/15/18 21:01; Admin Dose 5 MG; Start 11/08/18 at 13:00 Enoxaparin Sodium (Lovenox) 40 mg DAILY SC Last administered on 11/15/18 10:20; Admin Dose 40 MG; Start 11/09/18 at 09:00 Metoprolol Tartrate (Lopressor) 25 mg BID PO Last administered on 11/15/18 22:46; Admin Dose 25 MG; Start 11/10/18 at 21:00 Metoprolol Tartrate (Lopressor) 5 mg Q4H PRN IV HR>110 Hold SBP<100; Start 11/10/18 at 12:30 Insulin Aspart (Novolog Insulin Pen) NOVOLOG *MILD* ALGORI... AC MEALS AND BEDTIME SC Last administered on 11/15/18 13:23; Admin Dose 2 UNIT; Start 11/11/18 at 17:25 Diagnostic Test (Pha) (Accu-Chek) 1 ea 02 XX Last administered on 11/12/18 01:22; Admin Dose 1 EA; Start 11/12/18 at 02:00 Insulin Glargine (Lantus) 10 units HS SC Last administered on 11/15/18 21:06; Admin Dose 10 UNITS; Start 11/11/18 at 21:00 Metoclopramide HCl (Reglan) 10 mg Q6H PRN IV NAUSEA AND/OR VOMITING Last administered on 11/12/18 06:23; Admin Dose 10 MG; Start 11/11/18 at 23:30 Senna/Docusate Sodium (Senokot-S) 2 tab BID PO Last administered on 11/15/18 21:02; Admin Dose 2 TAB; Start 11/12/18 at 21:00 Methylnaltrexone [place] (Relistor) 12 mg Q48H SC Last administered on 11/14/18 17:11; Admin Dose 12 MG; Start 11/12/18 at 18:00 Metoclopramide HCl (Reglan) 5 mg Q6 IV Last administered on 11/16/18 06:06; Admin Dose 5 MG; Start 11/12/18 at 18:00 Clopidogrel Bisulfate (plaVIX) 75 mg DAILY PO Last administered on 11/15/18 10:18; Admin Dose 75 MG; Start 11/13/18 at 14:30 Ibuprofen (Motrin) 600 mg Q6H PRN PO MILD PAIN(1-3)OR ELEVATED TEMP; Start 11/13/18 at 14:30 EVELIA ALFONSO November 16, 2018 08:40
[2018-11-16] MEDS: CLOPIDOGREL 75 MG TAB PO SCH (08:44)
[2018-11-16] MEDS: SENNA/DOCUSATE NA (8.6MG/50MG) TAB PO SCH ×2 (08:44→21:32)
[2018-11-16] MEDS: AMLODIPINE 5 MG TAB PO SCH ×2 (08:44→21:34)
[2018-11-16] MEDS: METOPROLOL 25 MG TAB PO SCH ×2 (08:45→21:35)
[2018-11-16] MEDS: BACLOFEN 10 MG TAB PO SCH ×3 (08:45→21:33)
[2018-11-16] MEDS: ENOXAPARIN 40 MG/0.4 ML SYG SC SCH (08:54)
--- NOTE | 2018-11-16 10:25 | CONS ---
Assessment/Plan Assessment/Plan Assessment/Plan (Daily) IMPRESSION: 1. Left intertrochanteric fracture of the proximal left femur, status post surgery. 2. Hypertension. 3. Diabetes mellitus. 4. Cerebrovascular accident with left-sided weakness. 5. Ileus and severe constipation. Better 6. Abnormal LFT 7. U/S 11/14/18: moderate to severely dilated gallbladder due to gallstones 7. CT 11/15/18: distended GB with gallstones and sludge Plan Continue Amitiza check acute hepatitis panel HIDA scan to r/o cholecystitis consider surgery eval for distended gallbladder if HIDA scan positive Consultation Date/Type/Reason Admit Date/Time November 06, 2018 at 03:31 Initial Consult Date 11/06/18 Type of Consult GI Requesting Provider: ZAHIRA BELLO MD Date/Time of Note DATE: 11/16/18 TIME: 10:23 24 HR Interval Summary Free Text/Dictation no abdominal pain Exam/Review of Systems Exam Vitals Vital Signs Date Temp Pulse Resp B/P (MAP) Pulse Ox O2 O2 Flow FiO2 Time Delivery Rate 11/16/18 98.7 76 20 120/75 96 07:35 (90) 11/14/18 Room Air 14:30 Intake and Output 11/15/18 11/15/18 11/16/18 1515:00 23:00 07:00 IntakeIntake Total 480 ml 1140 ml BalanceBalance 480 ml 1140 ml Constitutional: alert, oriented, well developed, obese Psych: no complaints, nl mood/affect Head: normocephalic, atraumatic Eyes: nl conjunctiva, EOMI, nl lids ENMT: nl external ears & nose, nl lips & teeth, nl nasal mucosa & septum Neck: supple, non-tender Respiratory: clear to auscultation, normal air movement Cardiovascular: regular rate and rhythm, nl pulses Gastrointestinal: soft, non-tender, bowel sounds Results Result Diagram: 11/16/18 0500 11/16/18 0500 Results 24hrs Laboratory Tests Test 11/15/18 12:44 11/15/18 17:46 11/15/18 20:52 11/16/18 05:00 Bedside Glucose 187 130 147 White Blood Count 5.1 Red Blood Count 3.68 L Hemoglobin 10.4 L Hematocrit 32.1 L Mean Corpuscular 87.2 Volume Mean Corpuscular 28.3 L Hemoglobin Mean Corpuscular 32.4 Hemoglobin Concent Red Cell 13.3 Distribution Width Platelet Count 268 Mean Platelet Volume 8.8 Immature 3.000 H Granulocytes % Neutrophils % 54.9 Lymphocytes % 27.1 Monocytes % 9.9 Eosinophils % 4.5 Basophils % 0.6 Nucleated Red Blood 0.0 Cells % Immature 0.150 H Granulocytes # Neutrophils # 2.8 Lymphocytes # 1.4 Monocytes # 0.5 Eosinophils # 0.2 Basophils # 0.0 Nucleated Red Blood 0.0 Cells # Sodium Level 140 Potassium Level 4.3 Chloride Level 106 Carbon Dioxide Level 27 Anion Gap 7 Blood Urea Nitrogen 13 Creatinine 0.60 Est Glomerular > 60 Filtrat Rate mL/min Glucose Level 126 Calcium Level 9.1 Total Bilirubin 0.7 Direct Bilirubin 0.00 Indirect Bilirubin 0.7 Aspartate Amino 212 H Transf (AST/SGOT) Alanine 294 H Aminotransferase (AL T/SGPT) Alkaline Phosphatase 280 H Total Protein 6.7 Albumin 3.5 Globulin 3.20 Albumin/Globulin 1.09 Ratio Test 11/16/18 08:43 Bedside Glucose 131 Medications Medication Current Medications Ondansetron HCl (Zofran Inj) 4 mg Q6H PRN IV NAUSEA AND/OR VOMITING Last a dministered on 11/13/18at 14:18; Admin Dose 4 MG; Start 11/06/18 at 05:30 Pantoprazole (Protonix Tab) 40 mg AC BREAKFAST PO Last administered on 11/16/18at 06:06; Admin Dose 40 MG; Start 11/06/18 at 07:00 Miscellaneous Information 1 ea NOTE XX ; Start 11/06/18 at 05:30 Glucose (Glutose) 15 gm Q15M PRN PO DECREASED GLUCOSE; Start 11/06/18 at 05:30 Glucose (Glutose) 22.5 gm Q15M PRN PO DECREASED GLUCOSE; Start 11/06/18 at 05:30 Dextrose (D50w Syringe) 25 ml Q15M PRN IV DECREASED GLUCOSE; Start 11/06/18 at 05:30 Dextrose (D50w Syringe) 50 ml Q15M PRN IV DECREASED GLUCOSE; Start 11/06/18 at 05:30 Glucagon (Glucagen) 1 mg Q15M PRN IM DECREASED GLUCOSE; Start 11/06/18 at 05:30 Glucose (Glutose) 15 gm Q15M PRN BUCCAL DECREASED GLUCOSE; Start 11/06/18 at 05:30 Amlodipine Besylate (Norvasc) 5 mg BID PO Last administered on 11/16/18 08:44; Admin Dose 5 MG; Start 11/06/18 at 21:00 Hydralazine HCl (Apresoline) 25 mg BID PO Last administered on 11/16/18 08:46; Admin Dose 25 MG; Start 11/07/18 at 21:00 Oxycodone HCl (Roxicodone) 15 mg Q4H PRN PO .PAIN Last administered on 11/13/18 10:53; Admin Dose 15 MG; Start 11/07/18 at 22:30 Oxycodone HCl (Roxicodone) 10 mg Q4H PRN PO .PAIN Last administered on 11/14/18 17:11; Admin Dose 10 MG; Start 11/07/18 at 22:30 Oxycodone HCl (Roxicodone) 5 mg Q4H PRN PO .PAIN Last administered on 11/09/18 08:31; Admin Dose 5 MG; Start 11/07/18 at 22:30 Hydromorphone HCl (Dilaudid) 1 mg Q3H PRN IV .BREAKTHROUGH PAIN Last administered on 11/10/18 10:15; Admin Dose 1 MG; Start 11/07/18 at 22:30 Acetaminophen (Tylenol Tab) 1,000 mg Q8 PO Last administered on 11/16/18 06:06; Admin Dose 1,000 MG; Start 11/08/18 at 06:00 Ondansetron HCl (Zofran Inj) 4 mg Q4H PRN IV NAUSEA/VOMITING Last administered on 11/11/18 20:31; Admin Dose 4 MG; Start 11/08/18 at 22:30 Gabapentin (Neurontin) 300 mg QHS PO Last administered on 11/15/18 21:01; Admin Dose 300 MG; Start 11/08/18 at 21:00 Simethicone (Mylicon) 80 mg TID PRN PO .GAS; Start 11/07/18 at 22:30 Magnesium Hydroxide (Milk Of Mag) 30 ml HS PRN PO .CONSTIPATION Last administered on 11/11/18 00:31; Admin Dose 30 ML; Start 11/07/18 at 22:30 Bisacodyl (Dulcolax Supp) 10 mg DAILY PRN [place] .CONSTIPATION Last administered on 11/10/18at 15:24; Admin Dose 10 MG; Start 11/07/18 at 22:30 Sodium Biphosphate/ Sodium Phosphate (Fleet Enema) 133 ml DAILY PRN [place] .CONSTIPATION; Start 11/07/18 at 22:30 Diphenhydramine HCl (Benadryl) 25 mg Q4H PRN IV .ITCHING; Start 11/07/18 at 22:30 Naloxone HCl (Narcan) 0.2 mg Q2M PRN IV .RESP RATE; Start 11/07/18 at 22:30 IV Flush (NS 3 ml) 3 ml per protocol IV ; Start 11/07/18 at 22:30 Baclofen (Lioresal) 5 mg TID PO Last administered on 11/16/18 08:45; Admin Dose 5 MG; Start 11/08/18 at 13:00 Enoxaparin Sodium (Lovenox) 40 mg DAILY SC Last administered on 11/16/18at 08:54; Admin Dose 40 MG; Start 11/09/18 at 09:00 Metoprolol Tartrate (Lopressor) 25 mg BID PO Last administered on 11/16/18 08:45; Admin Dose 25 MG; Start 11/10/18 at 21:00 Metoprolol Tartrate (Lopressor) 5 mg Q4H PRN IV HR>110 Hold SBP<100; Start 11/10/18 at 12:30 Insulin Aspart (Novolog Insulin Pen) NOVOLOG *MILD* ALGORI... AC MEALS AND BEDTIME SC Last administered on 11/15/18 13:23; Admin Dose 2 UNIT; Start 11/11/18 at 17:25 Diagnostic Test (Pha) (Accu-Chek) 1 ea 02 XX Last administered on 11/12/18 01:22; Admin Dose 1 EA; Start 11/12/18 at 02:00 Insulin Glargine (Lantus) 10 units HS SC Last administered on 11/15/18 21:06; Admin Dose 10 UNITS; Start 11/11/18 at 21:00 Metoclopramide HCl (Reglan) 10 mg Q6H PRN IV NAUSEA AND/OR VOMITING Last administered on 11/12/18 06:23; Admin Dose 10 MG; Start 11/11/18 at 23:30 Senna/Docusate Sodium (Senokot-S) 2 tab BID PO Last administered on 11/16/18at 08:44; Admin Dose 2 TAB; Start 11/12/18 at 21:00 Methylnaltrexone [place] (Relistor) 12 mg Q48H SC Last administered on 11/14/18at 17:11; Admin Dose 12 MG; Start 11/12/18 at 18:00 Metoclopramide HCl (Reglan) 5 mg Q6 IV Last administered on 11/16/18at 06:06; Admin Dose 5 MG; Start 11/12/18 at 18:00 Clopidogrel Bisulfate (plaVIX) 75 mg DAILY PO Last administered on 11/16/18at 08:44; Admin Dose 75 MG; Start 11/13/18 at 14:30 Ibuprofen (Motrin) 600 mg Q6H PRN PO MILD PAIN(1-3)OR ELEVATED TEMP; Start 11/13/18 at 14:30 JAY BLUM MD November 16, 2018 10:25
[2018-11-16 13:42] VITALS: BP 113/65; PULSE 80; RESP 20
--- NOTE | 2018-11-16 13:42 | CONS ---
Assessment/Plan Assessment/Plan Hospital Course (Demo Recall) IMPRESSION: 1. Preoperative evaluation prior to lower extremity open reduction, internal fixation for a hip fracture.-no cp/sob. Neg trop x 2/Echo with NL EF and no sig valve abnl. 2. Hypertension-improved control on increased dose of norvasc 3. Status post fall, mechanical by description. 4. Diabetes mellitus. 5. History of cerebrovascular accident. 6. N/V-post-op, improved 7. Incresaed LFT's Recc: -Now on med-surg -Continue baseline norvasc and hydralazine with reasonable BP control -Continue BB -pain control -Follow Blood sugars closely -GI/surgical eval of increased LFT's/cholellithiasis ongoing Consultation Date/Type/Reason Admit Date/Time November 06, 2018 at 03:31 Initial Consult Date 11/06/18 Type of Consult Cardiology Reason for Consultation HTN Requesting Provider: ZAHIRA BELLO MD Date/Time of Note DATE: 11/16/18 TIME: 13:39 Exam/Review of Systems Vital Signs Vitals Vital Signs Date Temp Pulse Resp B/P (MAP) Pulse Ox O2 O2 Flow FiO2 Time Delivery Rate 11/16/18 98.7 76 20 120/75 96 07:35 (90) 11/14/18 Room Air 14:30 Intake and Output 11/15/18 11/15/18 11/16/18 1515:00 23:00 07:00 IntakeIntake Total 480 ml 1140 ml BalanceBalance 480 ml 1140 ml Exam Exam Review of Systems: CONSTITUTIONAL: No fevers, chills. PULMONARY: No sob CARDIOVASCULAR: No chest pain/palpitations GASTROINTESTINAL: No nausea/vomiting. GENITOURINARY: No hematuria/dysuria. MUSCULOSKELETAL: No myagias/arthalgias. PSYCHIATRIC: The patient denies depression. NEUROLOGIC: No weakness Constitutional: alert Psych: no complaints Head: normocephalic ENMT: mucosa pink and moist Neck: supple, jvd (9 cm water) Respiratory: diminished breath sounds (at bases/B) Cardiovascular: regular rate and rhythm Gastrointestinal: soft, non-tender Musculoskeletal: muscle tone (normal) Extremities: edema (none) Neurological: other (No focal ndefiocits) Labs Result Diagram: 11/16/18 0500 11/16/18 0500 Results 24hrs Laboratory Tests Test 11/15/18 17:46 11/15/18 20:52 11/16/18 05:00 11/16/18 08:43 Bedside Glucose 130 147 131 White Blood Count 5.1 Red Blood Count 3.68 L Hemoglobin 10.4 L Hematocrit 32.1 L Mean Corpuscular 87.2 Volume Mean Corpuscular 28.3 L Hemoglobin Mean Corpuscular 32.4 Hemoglobin Concent Red Cell 13.3 Distribution Width Platelet Count 268 Mean Platelet Volume 8.8 Immature 3.000 H Granulocytes % Neutrophils % 54.9 Lymphocytes % 27.1 Monocytes % 9.9 Eosinophils % 4.5 Basophils % 0.6 Nucleated Red Blood 0.0 Cells % Immature 0.150 H Granulocytes # Neutrophils # 2.8 Lymphocytes # 1.4 Monocytes # 0.5 Eosinophils # 0.2 Basophils # 0.0 Nucleated Red Blood 0.0 Cells # Sodium Level 140 Potassium Level 4.3 Chloride Level 106 Carbon Dioxide Level 27 Anion Gap 7 Blood Urea Nitrogen 13 Creatinine 0.60 Est Glomerular > 60 Filtrat Rate mL/min Glucose Level 126 Calcium Level 9.1 Total Bilirubin 0.7 Direct Bilirubin 0.00 Indirect Bilirubin 0.7 Aspartate Amino 212 H Transf (AST/SGOT) Alanine 294 H Aminotransferase (AL T/SGPT) Alkaline Phosphatase 280 H Total Protein 6.7 Albumin 3.5 Globulin 3.20 Albumin/Globulin 1.09 Ratio Test 11/16/18 12:34 Bedside Glucose 188 Medications Medications Current Medications Ondansetron HCl (Zofran Inj) 4 mg Q6H PRN IV NAUSEA AND/OR VOMITING Last administered on 11/13/18at 14:18; Admin Dose 4 MG; Start 11/06/18 at 05:30 Pantoprazole (Protonix Tab) 40 mg AC BREAKFAST PO Last administered on 11/16/18at 06:06; Admin Dose 40 MG; Start 11/06/18 at 07:00 Miscellaneous Information 1 ea NOTE XX ; Start 11/06/18 at 05:30 Glucose (Glutose) 15 gm Q15M PRN PO DECREASED GLUCOSE; Start 11/06/18 at 05:30 Glucose (Glutose) 22.5 gm Q15M PRN PO DECREASED GLUCOSE; Start 11/06/18 at 05:30 Dextrose (D50w Syringe) 25 ml Q15M PRN IV DECREASED GLUCOSE; Start 11/06/18 at 05:30 Dextrose (D50w Syringe) 50 ml Q15M PRN IV DECREASED GLUCOSE; Start 11/06/18 at 05:30 Glucagon (Glucagen) 1 mg Q15M PRN IM DECREASED GLUCOSE; Start 11/06/18 at 05:30 Glucose (Glutose) 15 gm Q15M PRN BUCCAL DECREASED GLUCOSE; Start 11/06/18 at 05:30 Amlodipine Besylate (Norvasc) 5 mg BID PO Last administered on 11/16/18 08:44; Admin Dose 5 MG; Start 11/06/18 at 21:00 Hydralazine HCl (Apresoline) 25 mg BID PO Last administered on 11/16/18 08:46; Admin Dose 25 MG; Start 11/07/18 at 21:00 Oxycodone HCl (Roxicodone) 15 mg Q4H PRN PO .PAIN Last administered on 11/13/18 10:53; Admin Dose 15 MG; Start 11/07/18 at 22:30 Oxycodone HCl (Roxicodone) 10 mg Q4H PRN PO .PAIN Last administered on 11/14/18 17:11; Admin Dose 10 MG; Start 11/07/18 at 22:30 Oxycodone HCl (Roxicodone) 5 mg Q4H PRN PO .PAIN Last administered on 11/09/18 08:31; Admin Dose 5 MG; Start 11/07/18 at 22:30 Hydromorphone HCl (Dilaudid) 1 mg Q3H PRN IV .BREAKTHROUGH PAIN Last administered on 11/10/18 10:15; Admin Dose 1 MG; Start 11/07/18 at 22:30 Acetaminophen (Tylenol Tab) 1,000 mg Q8 PO Last administered on 11/16/18 06:06; Admin Dose 1,000 MG; Start 11/08/18 at 06:00 Ondansetron HCl (Zofran Inj) 4 mg Q4H PRN IV NAUSEA/VOMITING Last administered on 11/11/18 20:31; Admin Dose 4 MG; Start 11/08/18 at 22:30 Gabapentin (Neurontin) 300 mg QHS PO Last administered on 11/15/18 21:01; Admin Dose 300 MG; Start 11/08/18 at 21:00 Simethicone (Mylicon) 80 mg TID PRN PO .GAS; Start 11/07/18 at 22:30 Magnesium Hydroxide (Milk Of Mag) 30 ml HS PRN PO .CONSTIPATION Last administered on 11/11/18at 00:31; Admin Dose 30 ML; Start 11/07/18 at 22:30 Bisacodyl (Dulcolax Supp) 10 mg DAILY PRN [place] .CONSTIPATION Last administered on 11/10/18at 15:24; Admin Dose 10 MG; Start 11/07/18 at 22:30 Sodium Biphosphate/ Sodium Phosphate (Fleet Enema) 133 ml DAILY PRN [place] .CONSTIPATION; Start 11/07/18 at 22:30 Diphenhydramine HCl (Benadryl) 25 mg Q4H PRN IV .ITCHING; Start 11/07/18 at 22:30 Naloxone HCl (Narcan) 0.2 mg Q2M PRN IV .RESP RATE; Start 11/07/18 at 22:30 IV Flush (NS 3 ml) 3 ml per protocol IV ; Start 11/07/18 at 22:30 Baclofen (Lioresal) 5 mg TID PO Last administered on 11/16/18at 12:39; Admin Dose 5 MG; Start 11/08/18 at 13:00 Enoxaparin Sodium (Lovenox) 40 mg DAILY SC Last administered on 11/16/18 08:54; Admin Dose 40 MG; Start 11/09/18 at 09:00 Metoprolol Tartrate (Lopressor) 25 mg BID PO Last administered on 11/16/18 08:45; Admin Dose 25 MG; Start 11/10/18 at 21:00 Metoprolol Tartrate (Lopressor) 5 mg Q4H PRN IV HR>110 Hold SBP<100; Start 11/10/18 at 12:30 Insulin Aspart (Novolog Insulin Pen) NOVOLOG *MILD* ALGORI... AC MEALS AND BEDTIME SC Last administered on 11/16/18at 12:38; Admin Dose 2 UNIT; Start 11/11/18 at 17:25 Diagnostic Test (Pha) (Accu-Chek) 1 ea 02 XX Last administered on 11/12/18at 01:22; Admin Dose 1 EA; Start 11/12/18 at 02:00 Insulin Glargine (Lantus) 10 units HS SC Last administered on 11/15/18 21:06; Admin Dose 10 UNITS; Start 11/11/18 at 21:00 Metoclopramide HCl (Reglan) 10 mg Q6H PRN IV NAUSEA AND/OR VOMITING Last administered on 11/12/18 06:23; Admin Dose 10 MG; Start 11/11/18 at 23:30 Senna/Docusate Sodium (Senokot-S) 2 tab BID PO Last administered on 11/16/18 08:44; Admin Dose 2 TAB; Start 11/12/18 at 21:00 Methylnaltrexone [place] (Relistor) 12 mg Q48H SC Last administered on 11/14/18 17:11; Admin Dose 12 MG; Start 11/12/18 at 18:00 Metoclopramide HCl (Reglan) 5 mg Q6 IV Last administered on 11/16/18 12:32; Admin Dose 5 MG; Start 11/12/18 at 18:00 Clopidogrel Bisulfate (plaVIX) 75 mg DAILY PO Last administered on 11/16/18 08:44; Admin Dose 75 MG; Start 11/13/18 at 14:30 Ibuprofen (Motrin) 600 mg Q6H PRN PO MILD PAIN(1-3)OR ELEVATED TEMP; Start 11/13/18 at 14:30 RUSS PEPE November 16, 2018 13:41
[2018-11-16] MEDS: METHYLNALTREXONE 12 MG/0.6 ML VIAL SC SCH (17:40)
[2018-11-16 20:12] VITALS: BP 122/73; PULSE 83; RESP 18
[2018-11-16 21:30] VITALS: BP 133/79; PULSE 82
[2018-11-16] MEDS: GABAPENTIN 300 MG CAP PO SCH (21:32)
[2018-11-16] MEDS: INSULIN GLARGINE [LANTus] (100 UNITS/ML) SYG SC SCH (21:40)
[2018-11-17] MEDS: METOCLOPRAMIDE 10 MG INJ IV SCH ×4 (00:43→17:17)
[2018-11-17] MEDS: NACL 0.9% 3 ML SYG IV SCH (00:43)
[2018-11-17 01:35] VITALS: BP 126/78; PULSE 85; RESP 16
[2018-11-17] MEDS: ACCU-CHEK XX SCH (02:00)
[2018-11-17] MEDS: ACETAMINOPHEN 500 MG TAB PO SCH ×3 (05:50→21:19)
[2018-11-17] MEDS: PANTOPRAZOLE (EC) 40 MG TAB PO SCH (05:51)
[2018-11-17 07:46] VITALS: BP 115/71; PULSE 80; RESP 16
[2018-11-17] MEDS: INSULIN ASPART [NOVOLOG] 3 ML PEN SC SCH ×4 (08:08→21:00)
--- NOTE | 2018-11-17 08:13 | CONS ---
Assessment/Plan Assessment/Plan Assessment/Plan (Daily) IMPRESSION: 1. Left intertrochanteric fracture of the proximal left femur, status post surgery. 2. Hypertension. 3. Diabetes mellitus. 4. Cerebrovascular accident with left-sided weakness. 5. Ileus and severe constipation. Better 6. Abnormal LFT: improving 7. U/S 11/14/18: moderate to severely dilated gallbladder due to gallstones 7. CT 11/15/18: distended GB with gallstones and sludge Plan 1. Continue Amitiza 2. check acute hepatitis panel 3. I canceled HIDA scan to r/o cholecystitis because feels it is medication that causes the elevated LFT and does not want any more w/u for abnormal LFT. 4. Dr. Conway to resume GI care of this patient tomorrow Consultation Date/Type/Reason Admit Date/Time November 06, 2018 at 03:31 Initial Consult Date 11/06/18 Type of Consult GI Requesting Provider: ZAHIRA BELLO MD Date/Time of Note DATE: 11/17/18 TIME: 08:03 24 HR Interval Summary Free Text/Dictation no abdominal pain Exam/Review of Systems Exam Vitals Vital Signs Date Temp Pulse Resp B/P (MAP) Pulse Ox O2 O2 Flow FiO2 Time Delivery Rate 11/17/18 98.2 80 16 115/71 98 07:46 (86) 11/14/18 Room Air 14:30 Intake and Output 11/16/18 11/16/18 11/17/18 1515:00 23:00 07:00 IntakeIntake Total 1080 ml 960 ml 360 ml BalanceBalance 1080 ml 960 ml 360 ml Constitutional: alert, oriented, well developed Psych: no complaints, nl mood/affect Head: normocephalic, atraumatic Eyes: nl conjunctiva, EOMI, nl lids ENMT: nl external ears & nose, nl lips & teeth, nl nasal mucosa & septum Neck: supple, non-tender Respiratory: clear to auscultation, normal air movement Cardiovascular: regular rate and rhythm, nl pulses Gastrointestinal: soft, non-tender, bowel sounds Neurological: nl mental status, nl speech, nl strength Results Result Diagram: 11/17/18 0456 11/17/18 0456 Results 24hrs Laboratory Tests Test 11/16/18 08:43 11/16/18 12:34 11/16/18 17:42 11/16/18 21:29 Bedside Glucose 131 188 121 206 Test 11/17/18 02:36 11/17/18 04:56 Bedside Glucose 137 White Blood Count 4.7 L Red Blood Count 3.59 L Hemoglobin 10.1 L Hematocrit 31.9 L Mean Corpuscular 88.9 Volume Mean Corpuscular 28.1 L Hemoglobin Mean Corpuscular 31.7 L Hemoglobin Concent Red Cell 13.2 Distribution Width Platelet Count 263 Mean Platelet Volume 8.7 Immature 4.200 H Granulocytes % Neutrophils % 54.2 Lymphocytes % 27.0 Monocytes % 9.1 Eosinophils % 4.7 Basophils % 0.8 Nucleated Red Blood 0.0 Cells % Immature 0.200 H Granulocytes # Neutrophils # 2.6 Lymphocytes # 1.3 Monocytes # 0.4 Eosinophils # 0.2 Basophils # 0.0 Nucleated Red Blood 0.0 Cells # Sodium Level 139 Potassium Level 4.2 Chloride Level 107 Carbon Dioxide Level 26 Anion Gap 6 Blood Urea Nitrogen 16 Creatinine 0.63 Est Glomerular > 60 Filtrat Rate mL/min Glucose Level 133 Calcium Level 9.2 Total Bilirubin 0.5 Direct Bilirubin 0.00 Indirect Bilirubin 0.5 Aspartate Amino 124 H Transf (AST/SGOT) Alanine 247 H Aminotransferase (AL T/SGPT) Alkaline Phosphatase 233 H Total Protein 6.2 Albumin 3.4 Globulin 2.80 Albumin/Globulin 1.21 Ratio Hepatitis B Surface NEGATIVE Antigen Hepatitis B Core NEGATIVE Total Antibody Hepatitis C Antibody NEGATIVE Medications Medication Current Medications Ondansetron HCl (Zofran Inj) 4 mg Q6H PRN IV NAUSEA AND/OR VOMITING Last administered on 11/13/18at 14:18; Admin Dose 4 MG; Start 11/06/18 at 05:30 Pantoprazole (Protonix Tab) 40 mg AC BREAKFAST PO Last administered on 11/17/18at 05:51; Admin Dose 40 MG; Start 11/06/18 at 07:00 Miscellaneous Information 1 ea NOTE XX ; Start 11/06/18 at 05:30 Glucose (Glutose) 15 gm Q15M PRN PO DECREASED GLUCOSE; Start 11/06/18 at 05:30 Glucose (Glutose) 22.5 gm Q15M PRN PO DECREASED GLUCOSE; Start 11/06/18 at 05:3 0 Dextrose (D50w Syringe) 25 ml Q15M PRN IV DECREASED GLUCOSE; Start 11/06/18 at 05:30 Dextrose (D50w Syringe) 50 ml Q15M PRN IV DECREASED GLUCOSE; Start 11/06/18 at 05:30 Glucagon (Glucagen) 1 mg Q15M PRN IM DECREASED GLUCOSE; Start 11/06/18 at 05:30 Glucose (Glutose) 15 gm Q15M PRN BUCCAL DECREASED GLUCOSE; Start 11/06/18 at 05:30 Amlodipine Besylate (Norvasc) 5 mg BID PO Last administered on 11/16/18 21:34; Admin Dose 5 MG; Start 11/06/18 at 21:00 Hydralazine HCl (Apresoline) 25 mg BID PO Last administered on 11/16/18 21:34; Admin Dose 25 MG; Start 11/07/18 at 21:00 Oxycodone HCl (Roxicodone) 15 mg Q4H PRN PO .PAIN Last administered on 11/13/18 10:53; Admin Dose 15 MG; Start 11/07/18 at 22:30 Oxycodone HCl (Roxicodone) 10 mg Q4H PRN PO .PAIN Last administered on 11/14/18 17:11; Admin Dose 10 MG; Start 11/07/18 at 22:30 Oxycodone HCl (Roxicodone) 5 mg Q4H PRN PO .PAIN Last administered on 11/09/18 08:31; Admin Dose 5 MG; Start 11/07/18 at 22:30 Hydromorphone HCl (Dilaudid) 1 mg Q3H PRN IV .BREAKTHROUGH PAIN Last administered on 11/10/18 10:15; Admin Dose 1 MG; Start 11/07/18 at 22:30 Acetaminophen (Tylenol Tab) 1,000 mg Q8 PO Last administered on 11/17/18 05:50; Admin Dose 1,000 MG; Start 11/08/18 at 06:00 Ondansetron HCl (Zofran Inj) 4 mg Q4H PRN IV NAUSEA/VOMITING Last administered on 11/11/18 20:31; Admin Dose 4 MG; Start 11/08/18 at 22:30 Gabapentin (Neurontin) 300 mg QHS PO Last administered on 11/16/18 21:32; Admin Dose 300 MG; Start 11/08/18 at 21:00 Simethicone (Mylicon) 80 mg TID PRN PO .GAS; Start 11/07/18 at 22:30 Magnesium Hydroxide (Milk Of Mag) 30 ml HS PRN PO .CONSTIPATION Last administered on 11/11/18at 00:31; Admin Dose 30 ML; Start 11/07/18 at 22:30 Bisacodyl (Dulcolax Supp) 10 mg DAILY PRN [place] .CONSTIPATION Last administered on 11/10/18at 15:24; Admin Dose 10 MG; Start 11/07/18 at 22:30 Sodium Biphosphate/ Sodium Phosphate (Fleet Enema) 133 ml DAILY PRN [place] .CONSTIPATION; Start 11/07/18 at 22:30 Diphenhydramine HCl (Benadryl) 25 mg Q4H PRN IV .ITCHING; Start 11/07/18 at 22:30 Naloxone HCl (Narcan) 0.2 mg Q2M PRN IV .RESP RATE; Start 11/07/18 at 22:30 IV Flush (NS 3 ml) 3 ml per protocol IV Last administered on 11/17/18at 00:43; Admin Dose 3 ML; Start 11/07/18 at 22:30 Baclofen (Lioresal) 5 mg TID PO Last administered on 11/16/18 21:33; Admin Dose 5 MG; Start 11/08/18 at 13:00 Enoxaparin Sodium (Lovenox) 40 mg DAILY SC Last administered on 11/16/18 08:54; Admin Dose 40 MG; Start 11/09/18 at 09:00 Metoprolol Tartrate (Lopressor) 25 mg BID PO Last administered on 11/16/18 21:35; Admin Dose 25 MG; Start 11/10/18 at 21:00 Insulin Aspart (Novolog Insulin Pen) NOVOLOG *MILD* ALGORI... AC MEALS AND BEDTIME SC Last administered on 11/16/18 21:40; Admin Dose 2 UNIT; Start 11/11/18 at 17:25 Diagnostic Test (Pha) (Accu-Chek) 1 ea 02 XX Last administered on 11/12/18at 01:22; Admin Dose 1 EA; Start 11/12/18 at 02:00 Insulin Glargine (Lantus) 10 units HS SC Last administered on 11/16/18 21:40; Admin Dose 10 UNITS; Start 11/11/18 at 21:00 Metoclopramide HCl (Reglan) 10 mg Q6H PRN IV NAUSEA AND/OR VOMITING Last administered on 11/12/18 06:23; Admin Dose 10 MG; Start 11/11/18 at 23:30 Senna/Docusate Sodium (Senokot-S) 2 tab BID PO Last administered on 11/16/18 21:32; Admin Dose 2 TAB; Start 11/12/18 at 21:00 Methylnaltrexone [place] (Relistor) 12 mg Q48H SC Last administered on 11/16/18 17:40; Admin Dose 12 MG; Start 11/12/18 at 18:00 Metoclopramide HCl (Reglan) 5 mg Q6 IV Last administered on 11/17/18 05:50; Admin Dose 5 MG; Start 11/12/18 at 18:00 Clopidogrel Bisulfate (plaVIX) 75 mg DAILY PO Last administered on 11/16/18 08:44; Admin Dose 75 MG; Start 11/13/18 at 14:30 Ibuprofen (Motrin) 600 mg Q6H PRN PO MILD PAIN(1-3)OR ELEVATED TEMP; Start 11/13/18 at 14:30 JAY BLUM MD November 17, 2018 08:13
[2018-11-17 08:15] VITALS: BP 115/71; PULSE 80; RESP 16
[2018-11-17] MEDS: SENNA/DOCUSATE NA (8.6MG/50MG) TAB PO SCH ×2 (08:41→21:07)
[2018-11-17] MEDS: BACLOFEN 10 MG TAB PO SCH ×3 (08:42→21:09)
[2018-11-17] MEDS: CLOPIDOGREL 75 MG TAB PO SCH (08:42)
[2018-11-17] MEDS: AMLODIPINE 5 MG TAB PO SCH ×2 (08:42→21:09)
[2018-11-17] MEDS: METOPROLOL 25 MG TAB PO SCH ×2 (08:43→21:10)
[2018-11-17] MEDS: ENOXAPARIN 40 MG/0.4 ML SYG SC SCH (08:45)
--- NOTE | 2018-11-17 13:02 | CONS ---
Assessment/Plan Assessment/Plan Hospital Course (Demo Recall) IMPRESSION: 1. Preoperative evaluation prior to lower extremity open reduction, internal fixation for a hip fracture.-no cp/sob. Neg trop x 2/Echo with NL EF and no sig valve abnl. 2. Hypertension-improved control on increased dose of norvasc 3. Status post fall, mechanical by description. 4. Diabetes mellitus. 5. History of cerebrovascular accident. 6. N/V-post-op, improved 7. Incresaed LFT's Recc: -Now on med-surg -Continue baseline norvasc and hydralazine with reasonable BP control -Continue BB -pain control -Follow Blood sugars closely -GI/surgical eval of increased LFT's/cholellithiasis ongoing Consultation Date/Type/Reason Admit Date/Time November 06, 2018 at 03:31 Initial Consult Date 11/06/18 Type of Consult Cardiology Reason for Consultation Preop Requesting Provider: ZAHIRA BELLO MD Date/Time of Note DATE: 11/17/18 TIME: 13:01 Exam/Review of Systems Vital Signs Vitals Vital Signs Date Temp Pulse Resp B/P (MAP) Pulse Ox O2 O2 Flow FiO2 Time Delivery Rate 11/17/18 98.2 80 16 115/71 98 08:15 (86) 11/14/18 Room Air 14:30 Intake and Output 11/16/18 11/16/18 11/17/18 1515:00 23:00 07:00 IntakeIntake Total 1080 ml 960 ml 360 ml BalanceBalance 1080 ml 960 ml 360 ml Exam Exam Review of Systems: CONSTITUTIONAL: No fevers, chills. PULMONARY: No sob CARDIOVASCULAR: No chest pain/palpitations GASTROINTESTINAL: No nausea/vomiting. GENITOURINARY: No hematuria/dysuria. MUSCULOSKELETAL: No myagias/arthalgias. PSYCHIATRIC: The patient denies depression. NEUROLOGIC: No weakness Constitutional: alert Psych: no complaints Head: normocephalic ENMT: mucosa pink and moist Neck: supple, jvd (9 cm water) Respiratory: diminished breath sounds Cardiovascular: regular rate and rhythm Gastrointestinal: soft, non-tender Musculoskeletal: muscle tone (normal) Extremities: edema (none) Neurological: other (No focall deficits) Labs Result Diagram: 11/17/18 0456 11/17/18 0456 Results 24hrs Laboratory Tests Test 11/16/18 17:42 11/16/18 21:29 11/17/18 02:36 11/17/18 04:56 Bedside Glucose 121 206 137 White Blood Count 4.7 L Red Blood Count 3.59 L Hemoglobin 10.1 L Hematocrit 31.9 L Mean Corpuscular 88.9 Volume Mean Corpuscular 28.1 L Hemoglobin Mean Corpuscular 31.7 L Hemoglobin Concent Red Cell 13.2 Distribution Width Platelet Count 263 Mean Platelet Volume 8.7 Immature 4.200 H Granulocytes % Neutrophils % 54.2 Lymphocytes % 27.0 Monocytes % 9.1 Eosinophils % 4.7 Basophils % 0.8 Nucleated Red Blood 0.0 Cells % Immature 0.200 H Granulocytes # Neutrophils # 2.6 Lymphocytes # 1.3 Monocytes # 0.4 Eosinophils # 0.2 Basophils # 0.0 Nucleated Red Blood 0.0 Cells # Sodium Level 139 Potassium Level 4.2 Chloride Level 107 Carbon Dioxide Level 26 Anion Gap 6 Blood Urea Nitrogen 16 Creatinine 0.63 Est Glomerular > 60 Filtrat Rate mL/min Glucose Level 133 Calcium Level 9.2 Total Bilirubin 0.5 Direct Bilirubin 0.00 Indirect Bilirubin 0.5 Aspartate Amino 124 H Transf (AST/SGOT) Alanine 247 H Aminotransferase (AL T/SGPT) Alkaline Phosphatase 233 H Total Protein 6.2 Albumin 3.4 Globulin 2.80 Albumin/Globulin 1.21 Ratio Hepatitis B Surface NEGATIVE Antigen Hepatitis B Core NEGATIVE Total Antibody Hepatitis C Antibody NEGATIVE Test 11/17/18 08:02 Bedside Glucose 195 Medications Medications Current Medications Ondansetron HCl (Zofran Inj) 4 mg Q6H PRN IV NAUSEA AND/OR VOMITING Last administered on 11/13/18at 14:18; Admin Dose 4 MG; Start 11/06/18 at 05:30 Pantoprazole (Protonix Tab) 40 mg AC BREAKFAST PO Last administered on 11/17/18at 05:51; Admin Dose 40 MG; Start 11/06/18 at 07:00 Miscellaneous Information 1 ea NOTE XX ; Start 11/06/18 at 05:30 Glucose (Glutose) 15 gm Q15M PRN PO DECREASED GLUCOSE; Start 11/06/18 at 05:30 Glucose (Glutose) 22.5 gm Q15M PRN PO DECREASED GLUCOSE; Start 11/06/18 at 05:30 Dextrose (D50w Syringe) 25 ml Q15M PRN IV DECREASED GLUCOSE; Start 11/06/18 at 05:30 Dextrose (D50w Syringe) 50 ml Q15M PRN IV DECREASED GLUCOSE; Start 11/06/18 at 05:30 Glucagon (Glucagen) 1 mg Q15M PRN IM DECREASED GLUCOSE; Start 11/06/18 at 05:30 Glucose (Glutose) 15 gm Q15M PRN BUCCAL DECREASED GLUCOSE; Start 11/06/18 at 05:30 Amlodipine Besylate (Norvasc) 5 mg BID PO Last administered on 11/17/18 08:42; Admin Dose 5 MG; Start 11/06/18 at 21:00 Hydralazine HCl (Apresoline) 25 mg BID PO Last administered on 11/17/18 08:42; Admin Dose 25 MG; Start 11/07/18 at 21:00 Oxycodone HCl (Roxicodone) 15 mg Q4H PRN PO .PAIN Last administered on 11/13/18 10:53; Admin Dose 15 MG; Start 11/07/18 at 22:30 Oxycodone HCl (Roxicodone) 10 mg Q4H PRN PO .PAIN Last administered on 11/14/18 17:11; Admin Dose 10 MG; Start 11/07/18 at 22:30 Oxycodone HCl (Roxicodone) 5 mg Q4H PRN PO .PAIN Last administered on 11/09/18 08:31; Admin Dose 5 MG; Start 11/07/18 at 22:30 Hydromorphone HCl (Dilaudid) 1 mg Q3H PRN IV .BREAKTHROUGH PAIN Last admi nistered on 11/10/18 10:15; Admin Dose 1 MG; Start 11/07/18 at 22:30 Acetaminophen (Tylenol Tab) 1,000 mg Q8 PO Last administered on 11/17/18 05:50; Admin Dose 1,000 MG; Start 11/08/18 at 06:00 Ondansetron HCl (Zofran Inj) 4 mg Q4H PRN IV NAUSEA/VOMITING Last administered on 11/11/18 20:31; Admin Dose 4 MG; Start 11/08/18 at 22:30 Gabapentin (Neurontin) 300 mg QHS PO Last administered on 11/16/18 21:32; Admin Dose 300 MG; Start 11/08/18 at 21:00 Simethicone (Mylicon) 80 mg TID PRN PO .GAS; Start 11/07/18 at 22:30 Magnesium Hydroxide (Milk Of Mag) 30 ml HS PRN PO .CONSTIPATION Last adm inistered on 11/11/18 00:31; Admin Dose 30 ML; Start 11/07/18 at 22:30 Bisacodyl (Dulcolax Supp) 10 mg DAILY PRN [place] .CONSTIPATION Last administered on 11/10/18at 15:24; Admin Dose 10 MG; Start 11/07/18 at 22:30 Sodium Biphosphate/ Sodium Phosphate (Fleet Enema) 133 ml DAILY PRN [place] .CONSTIPATION; Start 11/07/18 at 22:30 Diphenhydramine HCl (Benadryl) 25 mg Q4H PRN IV .ITCHING; Start 11/07/18 at 22:30 Naloxone HCl (Narcan) 0.2 mg Q2M PRN IV .RESP RATE; Start 11/07/18 at 22:30 IV Flush (NS 3 ml) 3 ml per protocol IV Last administered on 11/17/18 00:43; Admin Dose 3 ML; Start 11/07/18 at 22:30 Baclofen (Lioresal) 5 mg TID PO Last administered on 11/17/18 12:52; Admin Dose 5 MG; Start 11/08/18 at 13:00 Enoxaparin Sodium (Lovenox) 40 mg DAILY SC Last administered on 11/17/18 08:45; Admin Dose 40 MG; Start 11/09/18 at 09:00 Metoprolol Tartrate (Lopressor) 25 mg BID PO Last administered on 11/17/18 08:43; Admin Dose 25 MG; Start 11/10/18 at 21:00 Insulin Aspart (Novolog Insulin Pen) NOVOLOG *MILD* ALGORI... AC MEALS AND BEDTIME SC Last administered on 11/17/18 08:08; Admin Dose 2 UNIT; Start 11/11/18 at 17:25 Diagnostic Test (Pha) (Accu-Chek) 1 ea 02 XX Last administered on 11/12/18 01:22; Admin Dose 1 EA; Start 11/12/18 at 02:00 Insulin Glargine (Lantus) 10 units HS SC Last administered on 11/16/18 21:40; Admin Dose 10 UNITS; Start 11/11/18 at 21:00 Metoclopramide HCl (Reglan) 10 mg Q6H PRN IV NAUSEA AND/OR VOMITING Last administered on 11/12/18 06:23; Admin Dose 10 MG; Start 11/11/18 at 23:30 Senna/Docusate Sodium (Senokot-S) 2 tab BID PO Last administered on 11/17/18 08:41; Admin Dose 2 TAB; Start 11/12/18 at 21:00 Methylnaltrexone [place] (Relistor) 12 mg Q48H SC Last administered on 11/16/18 17:40; Admin Dose 12 MG; Start 11/12/18 at 18:00 Metoclopramide HCl (Reglan) 5 mg Q6 IV Last administered on 11/17/18 12:52; Admin Dose 5 MG; Start 11/12/18 at 18:00 Clopidogrel Bisulfate (plaVIX) 75 mg DAILY PO Last administered on 11/17/18 08:42; Admin Dose 75 MG; Start 11/13/18 at 14:30 Ibuprofen (Motrin) 600 mg Q6H PRN PO MILD PAIN(1-3)OR ELEVATED TEMP; Start 11/13/18 at 14:30 RUSS PEPE November 17, 2018 13:02
[2018-11-17 15:10] VITALS: BP 111/74; PULSE 78; RESP 16
--- NOTE | 2018-11-17 18:54 | PN ---
Date/Time of Note Date/Time of Note DATE: 11/17/18 TIME: 18:54 Assessment/Plan VTE Prophylaxis Risk score (from Ns)>0 risk: 8 SCD applied (from Ns): Yes Pharmacological prophylaxis: LMWH Lines/Catheters IV C[facility]ter Type [facility]from [facility]): [place] [facility] Urinary Cath still in place: No Assessment/Plan Hospital Course Elevated liver enzymes, pt and her refused HIDA scan, pt denies N/V, able to eat all meals. Assessment/Plan - Possible ileus, transaminitis, possible cholelithiasis per KUB. Dr. Conway is following in gastroenterology consultation -Severe constipation, resolving, continue bowel regimen - Displaced intertrochanteric fracture of the proximal left femur, mild varus angulation of fracture components. s/p surgery. Dr. Waggoner is following in ortho pedic surgery consultation. -Leukocytosis most likely secondary to hip fracture, resolved. -Tachycardia, resolved. Dr. Banuelos is following in cardiology consultation -Hypertension, continue Norvasc and hydralazine. -Diabetes mellitus type 2. Continue Lantus and NovoLog. -History of cerebrovascular accident with ischemic infarct with left-sided weakness. Further recommendations based on clinical course. Plan of care discussed with Dr. Potter. Result Diagram: 11/17/18 0456 11/17/18 0456 Results 24hrs Laboratory Tests Test 11/16/18 21:29 11/17/18 02:36 11/17/18 04:56 11/17/18 08:02 Bedside Glucose 206 137 195 White Blood Count 4.7 L Red Blood Count 3.59 L Hemoglobin 10.1 L Hematocrit 31.9 L Mean Corpuscular 88.9 Volume Mean Corpuscular 28.1 L Hemoglobin Mean Corpuscular 31.7 L Hemoglobin Concent Red Cell 13.2 Distribution Width Platelet Count 263 Mean Platelet Volume 8.7 Immature 4.200 H Granulocytes % Neutrophils % 54.2 Lymphocytes % 27.0 Monocytes % 9.1 Eosinophils % 4.7 Basophils % 0.8 Nucleated Red Blood 0.0 Cells % Immature 0.200 H Granulocytes # Neutrophils # 2.6 Lymphocytes # 1.3 Monocytes # 0.4 Eosinophils # 0.2 Basophils # 0.0 Nucleated Red Blood 0.0 Cells # Sodium Level 139 Potassium Level 4.2 Chloride Level 107 Carbon Dioxide Level 26 Anion Gap 6 Blood Urea Nitrogen 16 Creatinine 0.63 Est Glomerular > 60 Filtrat Rate mL/min Glucose Level 133 Calcium Level 9.2 Total Bilirubin 0.5 Direct Bilirubin 0.00 Indirect Bilirubin 0.5 Aspartate Amino 124 H Transf (AST/SGOT) Alanine 247 H Aminotransferase (AL T/SGPT) Alkaline Phosphatase 233 H Total Protein 6.2 Albumin 3.4 Globulin 2.80 Albumin/Globulin 1.21 Ratio Hepatitis B Surface NEGATIVE Antigen Hepatitis B Core NEGATIVE Total Antibody Hepatitis C Antibody NEGATIVE Test 11/17/18 12:50 11/17/18 17:18 Bedside Glucose 146 106 Exam/Review of Systems Exam Vitals Vital Signs Date Temp Pulse Resp B/P (MAP) Pulse Ox O2 O2 Flow FiO2 Time Delivery Rate 11/17/18 97.8 78 16 111/74 98 15:10 (86) 11/14/18 Room Air 14:30 Intake and Output 11/16/18 11/16/18 11/17/18 1515:00 23:00 07:00 IntakeIntake Total 1080 ml 960 ml 360 ml BalanceBalance 1080 ml 960 ml 360 ml Exam Constitutional: alert, oriented Respiratory: clear to auscultation Cardiovascular: nl pulses Gastrointestinal: soft, non-tender Musculoskeletal: other (Left hip s/p surgery) Extremities: normal pulses Neurological: nl mental status, other (Left-sided weakness) Results Results 24hrs Laboratory Tests Test 11/16/18 21:29 11/17/18 02:36 11/17/18 04:56 11/17/18 08:02 Bedside Glucose 206 137 195 White Blood Count 4.7 L Red Blood Count 3.59 L Hemoglobin 10.1 L Hematocrit 31.9 L Mean Corpuscular 88.9 Volume Mean Corpuscular 28.1 L Hemoglobin Mean Corpuscular 31.7 L Hemoglobin Concent Red Cell 13.2 Distribution Width Platelet Count 263 Mean Platelet Volume 8.7 Immature 4.200 H Granulocytes % Neutrophils % 54.2 Lymphocytes % 27.0 Monocytes % 9.1 Eosinophils % 4.7 Basophils % 0.8 Nucleated Red Blood 0.0 Cells % Immature 0.200 H Granulocytes # Neutrophils # 2.6 Lymphocytes # 1.3 Monocytes # 0.4 Eosinophils # 0.2 Basophils # 0.0 Nucleated Red Blood 0.0 Cells # Sodium Level 139 Potassium Level 4.2 Chloride Level 107 Carbon Dioxide Level 26 Anion Gap 6 Blood Urea Nitrogen 16 Creatinine 0.63 Est Glomerular > 60 Filtrat Rate mL/min Glucose Level 133 Calcium Level 9.2 Total Bilirubin 0.5 Direct Bilirubin 0.00 Indirect Bilirubin 0.5 Aspartate Amino 124 H Transf (AST/SGOT) Alanine 247 H Aminotransferase (AL T/SGPT) Alkaline Phosphatase 233 H Total Protein 6.2 Albumin 3.4 Globulin 2.80 Albumin/Globulin 1.21 Ratio Hepatitis B Surface NEGATIVE Antigen Hepatitis B Core NEGATIVE Total Antibody Hepatitis C Antibody NEGATIVE Test 11/17/18 12:50 11/17/18 17:18 Bedside Glucose 146 106 Medications Medication Current Medications Ondansetron HCl (Zofran Inj) 4 mg Q6H PRN IV NAUSEA AND/OR VOMITING Last administered on 11/13/18at 14:18; Admin Dose 4 MG; Start 11/06/18 at 05:30 Pantoprazole (Protonix Tab) 40 mg AC BREAKFAST PO Last administered on 11/17/18at 05:51; Admin Dose 40 MG; Start 11/06/18 at 07:00 Miscellaneous Information 1 ea NOTE XX ; Start 11/06/18 at 05:30 Glucose (Glutose) 15 gm Q15M PRN PO DECREASED GLUCOSE; Start 11/06/18 at 05:30 Glucose (Glutose) 22.5 gm Q15M PRN PO DECREASED GLUCOSE; Start 11/06/18 at 05:30 Dextrose (D50w Syringe) 25 ml Q15M PRN IV DECREASED GLUCOSE; Start 11/06/18 at 05:30 Dextrose (D50w Syringe) 50 ml Q15M PRN IV DECREASED GLUCOSE; Start 11/06/18 at 05:30 Glucagon (Glucagen) 1 mg Q15M PRN IM DECREASED GLUCOSE; Start 11/06/18 at 05:30 Glucose (Glutose) 15 gm Q15M PRN BUCCAL DECREASED GLUCOSE; Start 11/06/18 at 05:30 Amlodipine Besylate (Norvasc) 5 mg BID PO Last administered on 11/17/18at 08:42; Admin Dose 5 MG; Start 11/06/18 at 21:00 Hydralazine HCl (Apresoline) 25 mg BID PO Last administered on 11/17/18at 08:42; Admin Dose 25 MG; Start 11/07/18 at 21:00 Oxycodone HCl (Roxicodone) 15 mg Q4H PRN PO .PAIN Last administered on 11/13/18 10:53; Admin Dose 15 MG; Start 11/07/18 at 22:30 Oxycodone HCl (Roxicodone) 10 mg Q4H PRN PO .PAIN Last administered on 11/14/18 17:11; Admin Dose 10 MG; Start 11/07/18 at 22:30 Oxycodone HCl (Roxicodone) 5 mg Q4H PRN PO .PAIN Last administered on 11/09/18 08:31; Admin Dose 5 MG; Start 11/07/18 at 22:30 Hydromorphone HCl (Dilaudid) 1 mg Q3H PRN IV .BREAKTHROUGH PAIN Last administered on 11/10/18 10:15; Admin Dose 1 MG; Start 11/07/18 at 22:30 Acetaminophen (Tylenol Tab) 1,000 mg Q8 PO Last administered on 11/17/18 05:50; Admin Dose 1,000 MG; Start 11/08/18 at 06:00 Ondansetron HCl (Zofran Inj) 4 mg Q4H PRN IV NAUSEA/VOMITING Last administered on 11/11/18 20:31; Admin Dose 4 MG; Start 11/08/18 at 22:30 Gabapentin (Neurontin) 300 mg QHS PO Last administered on 11/16/18 21:32; Admin Dose 300 MG; Start 11/08/18 at 21:00 Simethicone (Mylicon) 80 mg TID PRN PO .GAS; Start 11/07/18 at 22:30 Magnesium Hydroxide (Milk Of Mag) 30 ml HS PRN PO .CONSTIPATION Last administered on 11/11/18 00:31; Admin Dose 30 ML; Start 11/07/18 at 22:30 Bisacodyl (Dulcolax Supp) 10 mg DAILY PRN [place] .CONSTIPATION Last administered on 11/10/18 15:24; Admin Dose 10 MG; Start 11/07/18 at 22:30 Sodium Biphosphate/ Sodium Phosphate (Fleet Enema) 133 ml DAILY PRN [place] .CONSTIPATION; Start 11/07/18 at 22:30 Diphenhydramine HCl (Benadryl) 25 mg Q4H PRN IV .ITCHING; Start 11/07/18 at 22:30 Naloxone HCl (Narcan) 0.2 mg Q2M PRN IV .RESP RATE; Start 11/07/18 at 22:30 IV Flush (NS 3 ml) 3 ml per protocol IV Last administered on 11/17/18 00:43; Admin Dose 3 ML; Start 11/07/18 at 22:30 Baclofen (Lioresal) 5 mg TID PO Last administered on 11/17/18 12:52; Admin Dose 5 MG; Start 11/08/18 at 13:00 Enoxaparin Sodium (Lovenox) 40 mg DAILY SC Last administered on 11/17/18 08:45; Admin Dose 40 MG; Start 11/09/18 at 09:00 Metoprolol Tartrate (Lopressor) 25 mg BID PO Last administered on 11/17/18 08:43; Admin Dose 25 MG; Start 11/10/18 at 21:00 Insulin Aspart (Novolog Insulin Pen) NOVOLOG *MILD* ALGORI... AC MEALS AND BEDTIME SC Last administered on 11/17/18 13:03; Admin Dose 1 UNIT; Start 11/11/18 at 17:25 Diagnostic Test (Pha) (Accu-Chek) 1 ea 02 XX Last administered on 11/12/18 01:22; Admin Dose 1 EA; Start 11/12/18 at 02:00 Insulin Glargine (Lantus) 10 units HS SC Last administered on 11/16/18 21:40; Admin Dose 10 UNITS; Start 11/11/18 at 21:00 Metoclopramide HCl (Reglan) 10 mg Q6H PRN IV NAUSEA AND/OR VOMITING Last administered on 11/12/18 06:23; Admin Dose 10 MG; Start 11/11/18 at 23:30 Senna/Docusate Sodium (Senokot-S) 2 tab BID PO Last administered on 11/17/18 08:41; Admin Dose 2 TAB; Start 11/12/18 at 21:00 Methylnaltrexone [place] (Relistor) 12 mg Q48H SC Last administered on 11/16/18 17:40; Admin Dose 12 MG; Start 11/12/18 at 18:00 Metoclopramide HCl (Reglan) 5 mg Q6 IV Last administered on 11/17/18 17:17; Admin Dose 5 MG; Start 11/12/18 at 18:00 Clopidogrel Bisulfate (plaVIX) 75 mg DAILY PO Last administered on 11/17/18at 08:42; Admin Dose 75 MG; Start 11/13/18 at 14:30 Ibuprofen (Motrin) 600 mg Q6H PRN PO MILD PAIN(1-3)OR ELEVATED TEMP Last administered on 11/17/18at 17:11; Admin Dose 600 MG; Start 11/13/18 at 14:30 LESLIE SNELL November 17, 2018 18:54
[2018-11-17 20:00] VITALS: BP 139/78; PULSE 79; RESP 18
[2018-11-17 21:05] VITALS: BP 127/79; PULSE 76
[2018-11-17] MEDS: GABAPENTIN 300 MG CAP PO SCH (21:10)
[2018-11-17] MEDS: INSULIN GLARGINE [LANTus] (100 UNITS/ML) SYG SC SCH (21:16)
[2018-11-18] MEDS: METOCLOPRAMIDE 10 MG INJ IV SCH ×4 (00:17→17:47)
[2018-11-18 02:00] VITALS: BP 126/69; PULSE 76; RESP 18
[2018-11-18] MEDS: ACCU-CHEK XX SCH (02:00)
[2018-11-18] MEDS: ACETAMINOPHEN 500 MG TAB PO SCH ×2 (06:02→17:46)
[2018-11-18] MEDS: PANTOPRAZOLE (EC) 40 MG TAB PO SCH (06:03)
[2018-11-18] MEDS: NACL 0.9% 3 ML SYG IV SCH (06:06)
[2018-11-18] MEDS: INSULIN ASPART [NOVOLOG] 3 ML PEN SC SCH ×3 (07:00→17:30)
[2018-11-18 07:53] VITALS: BP 121/70; PULSE 70; RESP 18
[2018-11-18] MEDS: SENNA/DOCUSATE NA (8.6MG/50MG) TAB PO SCH (08:15)
[2018-11-18] MEDS: CLOPIDOGREL 75 MG TAB PO SCH (08:15)
[2018-11-18] MEDS: METOPROLOL 25 MG TAB PO SCH (08:17)
[2018-11-18] MEDS: BACLOFEN 10 MG TAB PO SCH ×2 (08:18→12:54)
[2018-11-18] MEDS: AMLODIPINE 5 MG TAB PO SCH (08:24)
[2018-11-18] MEDS: ENOXAPARIN 40 MG/0.4 ML SYG SC SCH (08:27)
--- NOTE | 2018-11-18 09:06 | CONS ---
Assessment/Plan Assessment/Plan Hospital Course (Demo Recall) 53 yo female 1. Left intertrochanteric fracture of the proximal left femur, status post surg isidro. 2. Hypertension. 3. Diabetes mellitus. 4. Cerebrovascular accident with left-sided weakness. 5. Ileus and severe constipation. -resolved 6. Abnormal LFT: improving -acute hep panel neg U/S 11/14/18: moderate to severely dilated gallbladder due to gallstones CT 11/15/18: distended GB with gallstones and sludge Plan LFTs stat, they have been trending down continue bowel regimen Spoke with and patient about following up with Dr. Conway as outpatient, office phone number given. did not want to do HIDA scan so was cancelled per Dr Rao. Pt examined and plan of care discussed with Dr. Conway Consultation Date/Type/Reason Admit Date/Time November 06, 2018 at 03:31 Initial Consult Date 11/06/18 Requesting Provider: ZAHIRA BELLO MD Date/Time of Note DATE: 11/18/18 TIME: 08:59 24 HR Interval Summary Free Text/Dictation Pt tolerating PO diet, ate 100% of breakfast. She states she is having normal bm. No nausea or abdominal pain Exam/Review of Systems Exam Vitals Vital Signs Date Temp Pulse Resp B/P (MAP) Pulse Ox O2 O2 Flow FiO2 Time Delivery Rate 11/18/18 97.7 70 18 121/70 98 07:53 (87) 11/14/18 Room Air 14:30 Intake and Output 11/17/18 11/17/18 11/18/18 1515:00 23:00 07:00 IntakeIntake Total 960 ml 1000 ml BalanceBalance 960 ml 1000 ml Constitutional: alert, oriented Psych: no complaints Eyes: PERRL Respiratory: normal air movement Gastrointestinal: soft, non-tender, bowel sounds Musculoskeletal: nl extremities to inspection Neurological: nl mental status Results Result Diagram: 11/17/18 0456 11/17/18 0456 Results 24hrs Laboratory Tests Test 11/17/18 12:50 11/17/18 17:18 11/17/18 21:04 11/18/18 08:13 Bedside Glucose 146 106 123 122 Medications Medication Current Medications Ondansetron HCl (Zofran Inj) 4 mg Q6H PRN IV NAUSEA AND/OR VOMITING Last administered on 11/13/18 14:18; Admin Dose 4 MG; Start 11/06/18 at 05:30 Pantoprazole (Protonix Tab) 40 mg AC BREAKFAST PO Last administered on 11/18/18 06:03; Admin Dose 40 MG; Start 11/06/18 at 07:00 Miscellaneous Information 1 ea NOTE XX ; Start 11/06/18 at 05:30 Glucose (Glutose) 15 gm Q15M PRN PO DECREASED GLUCOSE; Start 11/06/18 at 05:30 Glucose (Glutose) 22.5 gm Q15M PRN PO DECREASED GLUCOSE; Start 11/06/18 at 05:30 Dextrose (D50w Syringe) 25 ml Q15M PRN IV DECREASED GLUCOSE; Start 11/06/18 at 05:30 Dextrose (D50w Syringe) 50 ml Q15M PRN IV DECREASED GLUCOSE; Start 11/06/18 at 05:30 Glucagon (Glucagen) 1 mg Q15M PRN IM DECREASED GLUCOSE; Start 11/06/18 at 05:30 Glucose (Glutose) 15 gm Q15M PRN BUCCAL DECREASED GLUCOSE; Start 11/06/18 at 05:30 Amlodipine Besylate (Norvasc) 5 mg BID PO Last administered on 11/18/18 08:24; Admin Dose 5 MG; Start 11/06/18 at 21:00 Hydralazine HCl (Apresoline) 25 mg BID PO Last administered on 11/18/18 08:16; Admin Dose 25 MG; Start 11/07/18 at 21:00 Oxycodone HCl (Roxicodone) 15 mg Q4H PRN PO .PAIN Last administered on 11/13/18 10:53; Admin Dose 15 MG; Start 11/07/18 at 22:30 Oxycodone HCl (Roxicodone) 10 mg Q4H PRN PO .PAIN Last administered on 11/14/18 17:11; Admin Dose 10 MG; Start 11/07/18 at 22:30 Oxycodone HCl (Roxicodone) 5 mg Q4H PRN PO .PAIN Last administered on 11/09/18 08:31; Admin Dose 5 MG; Start 11/07/18 at 22:30 Hydromorphone HCl (Dilaudid) 1 mg Q3H PRN IV .BREAKTHROUGH PAIN Last administered on 11/10/18 10:15; Admin Dose 1 MG; Start 11/07/18 at 22:30 Acetaminophen (Tylenol Tab) 1,000 mg Q8 PO Last administered on 11/18/18 06:02; Admin Dose 1,000 MG; Start 11/08/18 at 06:00 Ondansetron HCl (Zofran Inj) 4 mg Q4H PRN IV NAUSEA/VOMITING Last administered on 11/11/18 20:31; Admin Dose 4 MG; Start 11/08/18 at 22:30 Gabapentin (Neurontin) 300 mg QHS PO Last administered on 11/17/18 21:10; Admin Dose 300 MG; Start 11/08/18 at 21:00 Simethicone (Mylicon) 80 mg TID PRN PO .GAS; Start 11/07/18 at 22:30 Magnesium Hydroxide (Milk Of Mag) 30 ml HS PRN PO .CONSTIPATION Last administered on 11/11/18 00:31; Admin Dose 30 ML; Start 11/07/18 at 22:30 Bisacodyl (Dulcolax Supp) 10 mg DAILY PRN [place] .CONSTIPATION Last administered on 11/10/18 15:24; Admin Dose 10 MG; Start 11/07/18 at 22:30 Sodium Biphosphate/ Sodium Phosphate (Fleet Enema) 133 ml DAILY PRN [place] .CONSTIPATION; Start 11/07/18 at 22:30 Diphenhydramine HCl (Benadryl) 25 mg Q4H PRN IV .ITCHING; Start 11/07/18 at 22:30 Naloxone HCl (Narcan) 0.2 mg Q2M PRN IV .RESP RATE; Start 11/07/18 at 22:30 IV Flush (NS 3 ml) 3 ml per protocol IV Last administered on 11/18/18 06:06; Admin Dose 3 ML; Start 11/07/18 at 22:30 Baclofen (Lioresal) 5 mg TID PO Last administered on 11/18/18 08:18; Admin Dose 5 MG; Start 11/08/18 at 13:00 Enoxaparin Sodium (Lovenox) 40 mg DAILY SC Last administered on 11/18/18 08:27; Admin Dose 40 MG; Start 11/09/18 at 09:00 Metoprolol Tartrate (Lopressor) 25 mg BID PO Last administered on 11/18/18 08:17; Admin Dose 25 MG; Start 11/10/18 at 21:00 Insulin Aspart (Novolog Insulin Pen) NOVOLOG *MILD* ALGORI... AC MEALS AND BEDTIME SC Last administered on 11/17/18 13:03; Admin Dose 1 UNIT; Start 11/11/18 at 17:25 Diagnostic Test (Pha) (Accu-Chek) 1 ea 02 XX Last administered on 11/12/18 01:22; Admin Dose 1 EA; Start 11/12/18 at 02:00 Insulin Glargine (Lantus) 10 units HS SC Last administered on 11/17/18 21:16; Admin Dose 10 UNITS; Start 11/11/18 at 21:00 Metoclopramide HCl (Reglan) 10 mg Q6H PRN IV NAUSEA AND/OR VOMITING Last administered on 11/12/18 06:23; Admin Dose 10 MG; Start 11/11/18 at 23:30 Senna/Docusate Sodium (Senokot-S) 2 tab BID PO Last administered on 11/18/18 08:15; Admin Dose 2 TAB; Start 11/12/18 at 21:00 Methylnaltrexone [place] (Relistor) 12 mg Q48H SC Last administered on 11/16/18 17:40; Admin Dose 12 MG; Start 11/12/18 at 18:00 Metoclopramide HCl (Reglan) 5 mg Q6 IV Last administered on 11/18/18 06:03; Admin Dose 5 MG; Start 11/12/18 at 18:00 Clopidogrel Bisulfate (plaVIX) 75 mg DAILY PO Last administered on 11/18/18 08:15; Admin Dose 75 MG; Start 11/13/18 at 14:30 Ibuprofen (Motrin) 600 mg Q6H PRN PO MILD PAIN(1-3)OR ELEVATED TEMP Last administered on 11/17/18 17:11; Admin Dose 600 MG; Start 11/13/18 at 14:30 KEISHA ZUÑIGA November 18, 2018 09:06
--- NOTE | 2018-11-18 11:44 | CONS ---
Consult Date/Type/Reason Admit Date/Time November 06, 2018 at 03:31 Initial Consult Date 11/06/18 Requesting Provider: ZAHIRA BELLO MD Date/Time of Note DATE: 11/18/18 TIME: 11:42 Subjective No acute events - pt off tele - denies CP now ROS: No fever, no chills, no nausea, no vomiting, no diarrhea/constipation No recent weight changes No chest pain, no PND, no orthopnea - mild SOB No dizziness, blurred vision No thirst, no heat or cold intolerance Objective Vitals Vital Signs Date Temp Pulse Resp B/P (MAP) Pulse Ox O2 O2 Flow FiO2 Time Delivery Rate 11/18/18 97.7 70 18 121/70 98 07:53 (87) 11/14/18 Room Air 14:30 Intake and Output 11/17/18 11/17/18 11/18/18 1515:00 23:00 07:00 IntakeIntake Total 960 ml 1000 ml BalanceBalance 960 ml 1000 ml Exam General: WN/WD/NAD, AOx 3 HEENT: Unicetric/atraumatic/EOMI ( follows commands) NECK: JVD elevated, no thyromegaly Lymph: no lymphadenopathy HEART: regular with no S3, II/ systolic murmur at apex LUNGS: Coarse sounds ABD: soft, NT, ND, +BS : Intact Neuro: non focal SKIN: chronic changes EXT: trace edema Results/Medications Result Diagram: 11/17/18 0456 11/17/18 0456 Results 24 hrs Laboratory Tests Test 11/17/18 12:50 11/17/18 17:18 11/17/18 21:04 11/18/18 08:13 Bedside Glucose 146 106 123 122 Home Meds Active Scripts Ibuprofen* (Motrin*) 600 Mg Tab, 600 MG PO Q6H PRN for PAIN AND OR ELEVATED TEMP, #30 TAB Prov:TEZ SALCEDO MD 06/28/18 Reported Medications Clopidogrel Bisulfate (Clopidogrel) 75 Mg Tablet, 75 MG PO DAILY, #30 TAB 11/27/17 Hydralazine Hcl* (Hydralazine Hcl*) 10 Mg Tablet, 10 MG PO DAILY, #60 TAB 11/27/17 Pantoprazole* (Pantoprazole*) 40 Mg Tablet.dr, 40 MG PO AC BREAKFAST, TAB 11/27/17 Amlodipine Besylate* (Norvasc*) 5 Mg Tablet, 5 MG PO DAILY, TAB 11/27/17 Insulin Glargine,Hum.rec.anlog (Aliceaglar Pinkyikpen U-100) 100 Unit/1 Ml Insuln.pen, 6 UNIT SC QHS, EA 11/27/17 Medications Current Medications Ondansetron HCl (Zofran Inj) 4 mg Q6H PRN IV NAUSEA AND/OR VOMITING Last administered on 11/13/18at 14:18; Admin Dose 4 MG; Start 11/06/18 at 05:30 Pantoprazole (Protonix Tab) 40 mg AC BREAKFAST PO Last administered on 11/18/18at 06:03; Admin Dose 40 MG; Start 11/06/18 at 07:00 Miscellaneous Information 1 ea NOTE XX ; Start 11/06/18 at 05:30 Glucose (Glutose) 15 gm Q15M PRN PO DECREASED GLUCOSE; Start 11/06/18 at 05:30 Glucose (Glutose) 22.5 gm Q15M PRN PO DECREASED GLUCOSE; Start 11/06/18 at 05:3 0 Dextrose (D50w Syringe) 25 ml Q15M PRN IV DECREASED GLUCOSE; Start 11/06/18 at 05:30 Dextrose (D50w Syringe) 50 ml Q15M PRN IV DECREASED GLUCOSE; Start 11/06/18 at 05:30 Glucagon (Glucagen) 1 mg Q15M PRN IM DECREASED GLUCOSE; Start 11/06/18 at 05:30 Glucose (Glutose) 15 gm Q15M PRN BUCCAL DECREASED GLUCOSE; Start 11/06/18 at 05:30 Amlodipine Besylate (Norvasc) 5 mg BID PO Last administered on 11/18/18at 08:24; Admin Dose 5 MG; Start 11/06/18 at 21:00 Hydralazine HCl (Apresoline) 25 mg BID PO Last administered on 11/18/18at 08:16; Admin Dose 25 MG; Start 11/07/18 at 21:00 Oxycodone HCl (Roxicodone) 15 mg Q4H PRN PO .PAIN Last administered on 11/13/18at 10:53; Admin Dose 15 MG; Start 11/07/18 at 22:30 Oxycodone HCl (Roxicodone) 10 mg Q4H PRN PO .PAIN Last administered on 11/14/18 17:11; Admin Dose 10 MG; Start 11/07/18 at 22:30 Oxycodone HCl (Roxicodone) 5 mg Q4H PRN PO .PAIN Last administered on 11/09/18 08:31; Admin Dose 5 MG; Start 11/07/18 at 22:30 Hydromorphone HCl (Dilaudid) 1 mg Q3H PRN IV .BREAKTHROUGH PAIN Last administered on 11/10/18 10:15; Admin Dose 1 MG; Start 11/07/18 at 22:30 Acetaminophen (Tylenol Tab) 1,000 mg Q8 PO Last administered on 11/18/18 06:02; Admin Dose 1,000 MG; Start 11/08/18 at 06:00 Ondansetron HCl (Zofran Inj) 4 mg Q4H PRN IV NAUSEA/VOMITING Last administered on 11/11/18 20:31; Admin Dose 4 MG; Start 11/08/18 at 22:30 Gabapentin (Neurontin) 300 mg QHS PO Last administered on 11/17/18 21:10; Admin Dose 300 MG; Start 11/08/18 at 21:00 Simethicone (Mylicon) 80 mg TID PRN PO .GAS; Start 11/07/18 at 22:30 Magnesium Hydroxide (Milk Of Mag) 30 ml HS PRN PO .CONSTIPATION Last administered on 11/11/18 00:31; Admin Dose 30 ML; Start 11/07/18 at 22:30 Bisacodyl (Dulcolax Supp) 10 mg DAILY PRN [place] .CONSTIPATION Last administered on 11/10/18 15:24; Admin Dose 10 MG; Start 11/07/18 at 22:30 Sodium Biphosphate/ Sodium Phosphate (Fleet Enema) 133 ml DAILY PRN [place] .CONSTIPATION; Start 11/07/18 at 22:30 Diphenhydramine HCl (Benadryl) 25 mg Q4H PRN IV .ITCHING; Start 11/07/18 at 22:30 Naloxone HCl (Narcan) 0.2 mg Q2M PRN IV .RESP RATE; Start 11/07/18 at 22:30 IV Flush (NS 3 ml) 3 ml per protocol IV Last administered on 11/18/18 06:06; Admin Dose 3 ML; Start 11/07/18 at 22:30 Baclofen (Lioresal) 5 mg TID PO Last administered on 11/18/18 08:18; Admin Dose 5 MG; Start 11/08/18 at 13:00 Enoxaparin Sodium (Lovenox) 40 mg DAILY SC Last administered on 11/18/18 08:27; Admin Dose 40 MG; Start 11/09/18 at 09:00 Metoprolol Tartrate (Lopressor) 25 mg BID PO Last administered on 11/18/18 08:17; Admin Dose 25 MG; Start 11/10/18 at 21:00 Insulin Aspart (Novolog Insulin Pen) NOVOLOG *MILD* ALGORI... AC MEALS AND BEDTIME SC Last administered on 11/17/18 13:03; Admin Dose 1 UNIT; Start 11/11/18 at 17:25 Diagnostic Test (Pha) (Accu-Chek) 1 ea 02 XX Last administered on 11/12/18 01:22; Admin Dose 1 EA; Start 11/12/18 at 02:00 Insulin Glargine (Lantus) 10 units HS SC Last administered on 11/17/18 21:16; Admin Dose 10 UNITS; Start 11/11/18 at 21:00 Metoclopramide HCl (Reglan) 10 mg Q6H PRN IV NAUSEA AND/OR VOMITING Last administered on 11/12/18 06:23; Admin Dose 10 MG; Start 11/11/18 at 23:30 Senna/Docusate Sodium (Senokot-S) 2 tab BID PO Last administered on 11/18/18 08:15; Admin Dose 2 TAB; Start 11/12/18 at 21:00 Methylnaltrexone [place] (Relistor) 12 mg Q48H SC Last administered on 11/16/18 17:40; Admin Dose 12 MG; Start 11/12/18 at 18:00 Metoclopramide HCl (Reglan) 5 mg Q6 IV Last administered on 11/18/18 06:03; Admin Dose 5 MG; Start 11/12/18 at 18:00 Clopidogrel Bisulfate (plaVIX) 75 mg DAILY PO Last administered on 11/18/18 08:15; Admin Dose 75 MG; Start 11/13/18 at 14:30 Ibuprofen (Motrin) 600 mg Q6H PRN PO MILD PAIN(1-3)OR ELEVATED TEMP Last administered on 11/17/18at 17:11; Admin Dose 600 MG; Start 11/13/18 at 14:30 Assessment/Plan Hospital Course (Demo Recall) 1. Preoperative evaluation prior to lower extremity open reduction, internal fixation for a hip fracture.-no cp/sob. Neg trop x 2/Echo with NL EF and no sig valve abnl - tolerated procedure well. Still some pain - no edema - stable now, con't pain Rx. Stable - con't to recover, off tele now. 2. Hypertension-improved control on increased dose of norvasc- better now - will follow. Treated. BP controlled. 3. Status post fall, mechanical by description - no ectopy on tele. 4. Diabetes mellitus- con't Rx. On meds. 5. History of cerebrovascular accident- defer to primary team TERESO ESTRADA MD November 18, 2018 11:44
[2018-11-18 14:47] VITALS: BP 106/66; PULSE 83; RESP 18
[2018-11-18] MEDS ORDERED: INSU100I33 SC (14:50)
[2018-11-18] MEDS ORDERED: METO-448 PO (14:50)
[2018-11-18] MEDS ORDERED: METO5TAB58 PO (14:50)
[2018-11-18] MEDS ORDERED: SENOKOTS PO (14:50)
[2018-11-18] MEDS ORDERED: GABA300C16 PO (14:50)
[2018-11-18] MEDS ORDERED: HYDR-4011 PO (14:50)
[2018-11-18] MEDS ORDERED: HYDR-3671 PO (14:50)
[2018-11-18] MEDS: METHYLNALTREXONE 12 MG/0.6 ML VIAL SC SCH (17:47)
--- NOTE | 2018-11-19 00:24 | DS ---
Date/Time of Note Date/Time of Note DATE: 11/19/18 TIME: 00:18 Discharge Summary Admission/Discharge Info Admit Date/Time November 06, 2018 at 03:31 Discharge Date/Time November 18, 2018 at 18:36 Patient Condition: Stable Hx of Present Illness The patient is a 53-year-old female with history of cerebrovascular accident with left-sided weakness secondary to ischemic infarct and craniotomy secondary to right cerebral edema in June 2017, history of hypertension and diabetes. Patient presented to the emergency room from home due to left hip pain status post mechanical fall from the wheelchair. Left hip and left femur x-rays revealed displaced intertrochanteric fracture of the proximal left femur, mild varus angulation of fracture components. Patient denies any fever, denies any nausea vomiting diarrhea, patient denies chest pain denies shortness of breath. Patient is admitted for further evaluation and management. Patient is seen and medical surgical floor, she been evaluated by Dr. Waggoner in orthopedic surgery consultation. I spoke to patient's daughters Elaina and Dahiana at the bedside regarding patient's medical and surgical history, current condition and plan of care, all questions answered. Hospital Course Patient discharged home with home health services and outpatient PT per family request. -Elevated liver enzymes, pt and her refused HIDA scan,refused further work up, pt denies N/V, able to tolerate all meals. -Possible ileus, transaminitis, possible cholelithiasis per [facility]. Dr. Conway is following in gastroenterology consultation -Severe constipation, resolved -Displaced intertrochanteric fracture of the proximal left femur, mild varus angulation of fracture components. S/p Intramedullary nail of left trochanteric hip fracture. Dr. Waggoner is following in orthopedic surgery consultation. -Leukocytosis most likely secondary to hip fracture, resolved. -Tachycardia, resolved. Dr. Banuelos is following in cardiology consultation -Hypertension, continue Norvasc and hydralazine. -Diabetes mellitus type 2. Continue Lantus and NovoLog. -History of cerebrovascular accident with ischemic infarct with left-sided weakness. Plan of care discussed with Dr. Potter. Home Meds Active Scripts Hydrocodone/Acetaminophen ([place] 5-325 Tablet) 1 Each Tablet, 1 EACH PO Q4, #20 TAB Prov:LESLIE SNELL 11/18/18 Metoclopramide* (Reglan*) 5 Mg Tablet, 5 MG PO AC MEALS for 14 Days, TAB Prov:LESLIE SNELL 11/18/18 Sennosides/Docusate Sodium (Dok Plus Tablet) 1 Each Tablet, 2 TAB PO BID for 30 Days, TAB Prov:LESLIE SNELL 11/18/18 Gabapentin* (Gabapentin*) 300 Mg Capsule, 300 MG PO QHS for 30 Days, CAP Prov:RASHIDMAYLESLIE 11/18/18 Metoprolol Tartrate* (Lopressor*) 25 Mg Tab, 25 MG PO BID for 30 Days, TAB Prov:RASHIDVICTORINALESLIE 11/18/18 Hydralazine Hcl* (Hydralazine Hcl*) 25 Mg Tab, 25 MG PO BID for 30 Days, TAB Prov:VICTORINA SNELL11/18/18 Insulin Glargine,Hum.rec.anlog (Basaglar Kwikpen U-100) 100 Unit/1 Ml Insuln.pen, 10 UNIT SC QHS for 30 Days, EA Prov:MAY SNELLLANA 11/18/18 Ibuprofen* (Motrin*) 600 Mg Tab, 600 MG PO Q6H PRN for PAIN AND OR ELEVATED TEMP, #30 TAB Prov:TEZ SALCEDO MD 06/28/18 Reported Medications Clopidogrel Bisulfate (Clopidogrel) 75 Mg Tablet, 75 MG PO DAILY, #30 TAB 11/27/17 Pantoprazole* (Pantoprazole*) 40 Mg Tablet.dr, 40 MG PO AC BREAKFAST, TAB 11/27/17 Amlodipine Besylate* (Norvasc*) 5 Mg Tablet, 5 MG PO DAILY, TAB 11/27/17 Discontinued Reported Medications Hydralazine Hcl* (Hydralazine Hcl*) 10 Mg Tablet, 10 MG PO DAILY, #60 TAB 11/27/17 Follow-up Plan Discharge with home health RN for assessment and wound care, and outpatient PT per patient and family request. Follow-up with Dr. Waggoner orthopedic surgery in 1 to 2 weeks. Follow-up with Dr. Conway, gastroenterology in 1 to 2 weeks. Primary Care Provider Gerson Deleon MD Time spent on discharge: > 30 minutes Pending Labs Laboratory Tests Test 5/28/19 08:13 11/18/18 10:50 11/18/18 12:50 11/18/18 17:44 Bedside 122 115 133 Glucose mg/dL (70-220) mg/dL (70-220) mg/dL (70-220) Total 0.6 Bilirubin mg/dl (0.2-1.3 ) Direct 0.00 Bilirubin mg/dl (0.00-0. 20) Indirect 0.6 Bilirubin mg/dl (0-1.1) Aspartate Amino 89 Transf (AST/SGO IU/L (15-46) T) Alanine 202 Aminotransferas IU/L (13-69) e (ALT/SGPT) Alkaline 248 Phosphatase IU/L (42-121) Total Protein 6.3 g/dl (6.1-8.1) Albumin 3.6 g/dl (3.3-4.9) LESLIE SNELL November 19, 2018 00:24
== END 2018-11-18 18:36 | disposition home health service (06) | DRG 481 ==
LOC: FTE 00:32 → 2NE 03:31 → TEL 11-07 23:08 → 2NE 11-13 14:21
PROVIDERS: ADMIT Internal Medicine; ATTEND Internal Medicine
PROC: 0QS706Z Reposition Left Upper Femur with Intramedullary Internal Fixation Device, Open Approach (ICD-10-PCS; principal; 2018-11-07 20:00)
DX: S72.142A Displaced intertrochanteric fracture of left femur, initial encounter for closed fracture (principal); K56.7 Ileus, unspecified; I69.354 Hemiplegia and hemiparesis following cerebral infarction affecting left non-dominant side; D64.9 Anemia, unspecified; E11.9 Type 2 diabetes mellitus without complications; E78.5 Hyperlipidemia, unspecified; G89.18 Other acute postprocedural pain; I10 Essential (primary) hypertension; K59.00 Constipation, unspecified; K80.20 Calculus of gallbladder without cholecystitis without obstruction; M24.552 Contracture, left hip; M24.562 Contracture, left knee; M19.90 Unspecified osteoarthritis, unspecified site; R11.2 Nausea with vomiting, unspecified; R00.0 Tachycardia, unspecified; W05.0XXA Fall from non-moving wheelchair, initial encounter; Y92.009 Unspecified place in unspecified non-institutional (private) residence as the place of occurrence of the external cause; Z79.02 Long term (current) use of antithrombotics/antiplatelets; Z79.4 Long term (current) use of insulin
CPT/HCPCS: 36415; 71045; 72170; 73510; 73550; 73562; 74018; 74176; 76700; 80048; 80053; 80061; 80076; 81003; 82962; 83036; 83690; 84484; 84703; 85025; 85610; 85730; 86704; 86709; 86803; 86850; 86900; 86901; 87340; 93005; 93306; 97110; 97116; 97163; 97165; 97530; 97535; J0360; J0690; J1100; J1170; J1650; J1815; J2270; J2405; J2765; J3010; J7042; J7120